=== PATIENT | female | born 1945 | race Caucasian/White ===

== ENCOUNTER 2017-09-12 20:43 | Emergency (ER) | payer MEDICARE, OTHER ==
[2017-09-12 21:03] VITALS: BP 133/85; PULSE 89; TEMP 97.8; BMI 28.5
[2017-09-12] MEDS ORDERED: CYCLOBENZAPRINE HCL 10 MG TABLET (FP) ONE (21:27)
[2017-09-12] MEDS ORDERED: MORPHINE SULFATE 10 MG/1 ML *VIAL ONE (21:27)
--- NOTE | 2017-09-12 21:27 | PDOC ---
History of Present Illness - General History Source: Patient Exam Limitations: No Limitations - History of Present Illness Initial Comments: 09/12/17 21:38 The patient is a 71 year old female with past medical history of hypertension, diabetes, gastritis, sciatica who presents to the ED with complaints of right lower back pain that began today. She states it radiates down her right buttock and right lower extremity. The patient states that her symptom is chronic and consistent with her sciatica for which she states only morphine can alleviate. She denies any history of injury or falls. The patient denies any numbness/ tingling to the area. She denies any recent illness, fever, or chills. The patient was seen here on 09/07/17 for epigastric pain for which she was given a CT scan which did not show anything. Allergies: acetaminophen, cortisone, penicillin V, tramadol Surgeries: Cholecystectomy, appendectomy <Yesica Butler - Last Filed: 09/12/17 21:38> <Candelaria Collins - Last Filed: 09/12/17 22:39> - General Chief Complaint: Back Pain Stated Complaint: BACK PAIN Time Seen by Provider: 09/12/17 21:00 Past History <Yesica Butler - Last Filed: 09/12/17 21:38> - Past Medical History Anemia: No Asthma: No Cancer: No Cardiac Disorders: No COPD: No CHF: No Diabetes: Yes GI Disorders: Yes (gastritis,colitis) Disorders: No HTN: Yes Hypercholesterolemia: Yes Liver Disease: No Thyroid Disease: No - Surgical History Abdominal Surgery: No Appendectomy: Yes Cardiac Surgery: No Cholecystectomy: Yes Lung Surgery: No Neurologic Surgery: No - Immunization History Immunization Up to Date: No - Suicide/Smoking/Psychosocial Hx Smoking History: Never smoked Have you smoked in the past 12 months: No Information on smoking cessation initiated: No Hx Alcohol Use: No Drug/Substance Use Hx: No Substance Use Type: None <Candelaria Collins - Last Filed: 09/12/17 22:39> - Past Medical History Allergies/Adverse Reactions: Allergies Allergy/AdvReac Type Severity Reaction Status Date / Time acetaminophen Allergy Verified 09/12/17 21:03 cortisone Allergy Verified 09/12/17 21:03 penicillin V Allergy Verified 09/12/17 21:03 tramadol Allergy Verified 09/12/17 21:03 Home Medications: Ambulatory Orders Lipase/Protease/Amylase [Mae Wall 36,000 Units Capsule] 1 each PO AC 10/15/15 Atorvastatin Ca [Lipitor] 20 mg PO HS 09/07/17 Insulin (Levemir) [Levemir Flexpen -] 20 - 27 units SQ ASDIR 09/07/17 Insulin Glargine,Hum.rec.anlog [Lantus] 50 unit SQ DAILY 09/07/17 Liraglutide [Victoza -] 1.2 mg SQ DAILY@0700 09/07/17 Metformin HCl [Glucophage] 1,000 mg PO BID 09/07/17 Omeprazole 40 mg PO DAILY 09/07/17 Pregabalin [Lyrica] 50 mg PO TID 09/07/17 Review of Systems - Review of Systems Able to Perform ROS?: Yes Comments:: 09/12/17 21:38 CONSTITUTIONAL: Absent: fever, no chills, no fatigue EYES: Absent: visual changes ENT: Absent: ear pain, no sore throat CARDIOVASCULAR: Absent: chest pain, no palpitations RESPIRATORY: Absent: cough, no SOB GI: Absent: abdominal pain, no nausea, no vomiting, no constipation, no diarrhea GENITOURINARY: Absent: dysuria, no frequency, no hematuria MUSKULOSKELETAL: Present: Right back pain, right buttock pain, right leg pain SKIN: Absent: rash NEURO: Absent: headache All Other Systems: Reviewed and Negative <Yesica Butler - Last Filed: 09/12/17 21:38> *Physical Exam - Vital Signs Last Vital Signs Temp Pulse Resp BP Pulse Ox 97.8 F 89 22 133/85 98 09/12/17 20:57 09/12/17 20:57 09/12/17 20:57 09/12/17 20:57 09/12/17 20:57 - Physical Exam Comments: 09/12/17 21:39 GENERAL: Well-appearing, well-nourished. No apparent distress. HEENT: Normocephalic, atraumatic. PERRL, EOM intact. CARDIOVASCULAR: Normal S1, S2. Regular rate and rhythm. PULMONARY: Clear to auscultation bilaterally. ABDOMEN: Soft, non-distended, non-tender. EXTREMITIES: Pain to palpation of left lower back and left buttock Normal ROM in all four extremities. No gross deformities. SKIN: Warm, dry. No rash NEUROLOGICAL: No focal neurological deficits. <Yesica Butler - Last Filed: 09/12/17 21:38> - Vital Signs Last Vital Signs Temp Pulse Resp BP Pulse Ox 97.8 F 89 22 133/85 98 09/12/17 20:57 09/12/17 20:57 09/12/17 20:57 09/12/17 20:57 09/12/17 20:57 <Candelaria Collins - Last Filed: 09/12/17 22:39> *DC/Admit/Observation/Transfer - Attestations Scribe Attestion: 09/12/17 21:41 Documentation prepared by Yesica Butler, acting as bilingual medical receptionist for Candelaria Collins MD. <Yesica Butler - Last Filed: 09/12/17 21:38> <Candelaria Collins - Last Filed: 09/12/17 22:39> Diagnosis at time of Disposition: Sciatica of right side - Discharge Dispostion Disposition: HOME Condition at time of disposition: Stable - Referrals Referrals: ON STAFF,NOT [Non Staff, Medical] - - Patient Instructions Printed Discharge Instructions: DI for Back Pain With Sciatica Additional Instructions: please followup with your regular doctor - Post Discharge Activity
[2017-09-12] MEDS ORDERED: morphine CARPU-JECT 2 MG/1 ML DISP.SYRIN IM STA (21:38)
[2017-09-12] MEDS ORDERED: CYCLOBENZAPRINE HCL 10 MG TABLET (FP) PO ONE (21:38)
== END 2017-09-12 22:54 | disposition home or self-care (01) ==
LOC: JER 20:43
PROC: 3E023NZ Introduction of Analgesics, Hypnotics, Sedatives into Muscle, Percutaneous Approach (ICD-10-PCS; principal; 2017-09-12)
DX: M54.31 Sciatica, right side (principal); I10 Essential (primary) hypertension; E11.9 Type 2 diabetes mellitus without complications; E78.00 Pure hypercholesterolemia, unspecified; Z79.84 Long term (current) use of oral hypoglycemic drugs; Z79.4 Long term (current) use of insulin; Z88.0 Allergy status to penicillin; Z88.8 Allergy status to other drugs, medicaments and biological substances
CPT/HCPCS: 99282-25

== ENCOUNTER 2017-12-17 08:29 | Emergency (ER) | payer OTHER ==
[2017-12-17 08:41] VITALS: BP 141/74; PULSE 50; TEMP 97.6; BMI 25.7
--- NOTE | 2017-12-17 09:03 | PDOC ---
History of Present Illness - General Chief Complaint: Itching Stated Complaint: RASH Time Seen by Provider: 12/17/17 08:49 History Source: Patient Exam Limitations: No Limitations - History of Present Illness Initial Comments: CHIEF COMPLAINT: 72 y/o afebrile female with PMH HTN, HLD, NIDDM c/o itching x 6 days. HISTORY OF PRESENT ILLNESS: Patient states she had her hair dyed 6 days ago and began to have overall body itching that day which has continued. She was seen at [facility] days ago and was prescribed benadryl which she is taking without relief. She denies cough, SOB, facial swelling, tongue swelling, rash and all other symptoms. Vital signs on arrival are notable for pulse of 50. REVIEW OF SYSTEMS: GENERAL/CONSTITUTIONAL: No fever/chills. HEAD, EYES, EARS, NOSE AND THROAT: No change in vision. No ear pain or discharge. No sore throat. CARDIOVASCULAR: No chest pain or shortness of breath. RESPIRATORY: No cough, wheezing, or hemoptysis. SKIN: +itching. No rash or easy bruising. NEUROLOGIC: No headache, vertigo, loss of consciousness, or loss of sensation. PHYSICAL EXAM: GENERAL: The patient is awake, alert, and fully oriented, in no acute distress. She is scratching herself all over. HEAD: Normal with no signs of trauma. ENT: Pupils equal, round and reactive to light, extraocular movements intact, sclera anicteric, conjunctiva clear. No angioedema. NO tongue swelling. Airway patent. LUNGS: Clear to auscultation bilaterally. Normal excursion. No respiratory distress or use of accessory muscles. CV: RRR, S1/S2, no MRG. Cap refill < 2 sec. NEUROLOGICAL: Normal speech, normal gait. CN II-XII grossly intact. SKIN: Warm, dry, normal turgor, no rashes or lesions noted. Past History - Past Medical History Allergies/Adverse Reactions: Allergies Allergy/AdvReac Type Severity Reaction Status Date / Time acetaminophen Allergy Verified 12/17/17 08:37 cortisone Allergy Verified 12/17/17 08:37 penicillin V Allergy Verified 12/17/17 08:37 tramadol Allergy Verified 12/17/17 08:37 Home Medications: Ambulatory Orders Lipase/Protease/Amylase [Mae Wall 36,000 Units Capsule] 1 each PO AC 10/15/15 Atorvastatin Ca [Lipitor] 20 mg PO HS 09/07/17 Liraglutide [Victoza -] 1.2 mg SQ DAILY@0700 09/07/17 Metformin HCl [Glucophage] 1,000 mg PO BID 09/07/17 Omeprazole 40 mg PO DAILY 09/07/17 Pregabalin [Lyrica] 50 mg PO TID 09/07/17 Prednisone [Deltasone] 40 mg PO DAILY #8 tablet 12/17/17 Anemia: No Asthma: No Cancer: No Cardiac Disorders: No COPD: No CHF: No Diabetes: Yes GI Disorders: Yes (gastritis,colitis) Disorders: No HTN: Yes Hypercholesterolemia: Yes Liver Disease: No Thyroid Disease: No - Surgical History Abdominal Surgery: No Appendectomy: Yes Cardiac Surgery: No Cholecystectomy: Yes Lung Surgery: No Neurologic Surgery: No - Immunization History Immunization Up to Date: No - Suicide/Smoking/Psychosocial Hx Smoking History: Never smoked Have you smoked in the past 12 months: No Hx Alcohol Use: No Drug/Substance Use Hx: No Substance Use Type: None *Physical Exam - Vital Signs Last Vital Signs Temp Pulse Resp BP Pulse Ox 97.6 F 50 L 19 141/74 97 12/17/17 08:38 12/17/17 08:38 12/17/17 08:38 12/17/17 08:38 12/17/17 08:38 Medical Decision Making - Medical Decision Making A/P: 72 y/o female with overall body itching after having hair dyed 6 days ago. Benadryl has provided no relief. Will send rx for 4 day course of prednisone. Instructed her to monitor her sugar levels as prednisone can cause sugar to increase. Patient has confirmed that she does not take insulin. Patient instructed to f/u with Dr. Dennis this week if itching does not resolve with prednisone. Was given IM injection of benadryl in the ER. Pt instructed to return to the ER with any worsening or concerning symptoms. The patient verbalizes understanding of all instructions, has no further questions and is awaiting discharge. *DC/Admit/Observation/Transfer Diagnosis at time of Disposition: Itching - Discharge Dispostion Disposition: HOME Condition at time of disposition: Good - Referrals Referrals: Yasmany Dennis [Primary Care Provider] - - Patient Instructions Printed Discharge Instructions: DI for Itching Additional Instructions: Discharge Instructions: -Continue to take benadryl for itching -A prescription has been sent to your pharmacy for prednisone -The prednisone may cause your sugar level to increase -Follow up with Dr. Dennis this week if no improvement with prednisone -Return to the ER with any worsening or concerning symptoms. Instrucciones de descarga: -Contine tomando benadryl para picar -Luz receta perez sido enviada a wesley farmacia para prednisona -La prednisona puede hacer que wesley nivel de azcar aumente -Siga con el Dr. Dennis esta semana si no mejora con prednisona -Volver a la simon de emergencias con cualquier empeoramiento o sntomas. Print Language: DANISH - Post Discharge Activity
== END 2017-12-17 09:52 | disposition home or self-care (01) ==
LOC: JERFT 08:29
PROC: 3E023GC Introduction of Other Therapeutic Substance into Muscle, Percutaneous Approach (ICD-10-PCS; principal; 2017-12-17)
DX: L29.8 Other pruritus (principal); I10 Essential (primary) hypertension; E78.00 Pure hypercholesterolemia, unspecified; E11.9 Type 2 diabetes mellitus without complications; Z79.84 Long term (current) use of oral hypoglycemic drugs
CPT/HCPCS: 96372; 99281-25

== ENCOUNTER 2018-03-11 19:00 | Emergency (ER) | payer OTHER ==
[2018-03-11 19:28] VITALS: TEMP 99.4; BMI 29.7
--- NOTE | 2018-03-11 20:00 | PDOC ---
History of Present Illness - General Chief Complaint: Pain Stated Complaint: RIGHT SIDE HIP PAIN History Source: Patient, Family Exam Limitations: No Limitations - History of Present Illness Initial Comments: 03/11/18 19:55 Patient is a 72 year old female with h/o arthritis, osteoporosis, DM, HLD, colitis,, bilateral knee surgery, complaining of right buttock pain that radiates down the leg 3 months. He has been to her PMD who prescribed naproxen and physical therapy. Physical therapy was completed one month ago but her pain continues. Yesterday she went to [facility] for the same pain which is now sharp, stabbing, 10/10, which was worse with ambulation, and was given morphine which relieved the pain for several hours. This morning the pain returned and worsened progressively throughout the day. She has been taking Tylenol last dose was 2 PM today with no relief of symptoms. States she stopped taking the naproxen because of her stoma problems. No bowel or bladder incontinence, no saddle anesthesia. PMD: Dr. Farr GENERAL/CONSTITUTIONAL: [No fever or chills. No weakness. No weight change.] HEAD, EYES, EARS, NOSE AND THROAT: [No change in vision. No ear pain or discharge. No sore throat.] CARDIOVASCULAR: [No chest pain or shortness of breath.] RESPIRATORY: [No cough, wheezing, or hemoptysis.] GASTROINTESTINAL: [No nausea, vomiting, diarrhea or constipation. No rectal bleeding.] GENITOURINARY: [No dysuria, frequency, or change in urination.] MUSCULOSKELETAL: [No joint or muscle swelling or pain. No neck (+) back pain.] SKIN AND BREASTS: [No rash or easy bruising.] NEUROLOGIC: [No headache, vertigo, loss of consciousness, or loss of sensation.] PSYCHIATRIC: [No depression or anxiety.] ENDOCRINE: [No increased thirst. No abnormal weight change.] HEMATOLOGIC/LYMPHATIC: [No anemia, easy bleeding, or history of blood clots.] ALLERGIC/IMMUNOLOGIC: [No hives or skin allergy. No latex allergy.] GENERAL: [The patient is awake, alert, and fully oriented, in no acute distress. ] HEAD: [Normal with no signs of trauma.] EYES: [Pupils equal, round and reactive to light, extraocular movements intact, sclera anicteric, conjunctiva clear.] ENT: [Ears normal, nares patent, oropharynx clear without exudates. Moist mucous membranes.] NECK: [Normal range of motion, supple without lymphadenopathy, JVD, or masses.] LUNGS: [Breath sounds equal, clear to auscultation bilaterally. No wheezes, and no crackles.] HEART: [Regular rate and rhythm, normal S1 and S2 without murmur, rub.] ABDOMEN: [Soft, nontender, normoactive bowel sounds. No guarding, no rebound. No masses.] EXTREMITIES: [Decreased range of motion due to pain, no edema. No clubbing or cyanosis. No cords, erythema, (+) tenderness right buttocks.] NEUROLOGICAL: [Cranial nerves II through XII grossly intact. Normal speech, normal gait.] PSYCH: [Normal mood, normal affect.] SKIN: [Warm, Dry, normal turgor, no rashes or lesions noted.] Past History - Past Medical History Allergies/Adverse Reactions: Allergies Allergy/AdvReac Type Severity Reaction Status Date / Time cortisone Allergy Verified 03/11/18 19:24 penicillin V Allergy Verified 03/11/18 19:24 tramadol Allergy Verified 03/11/18 19:24 Home Medications: Ambulatory Orders Lipase/Protease/Amylase [Creon Dr 36,000 Units Capsule] 1 each PO AC 10/15/15 Atorvastatin Ca [Lipitor] 20 mg PO HS 09/07/17 Metformin HCl [Glucophage] 1,000 mg PO BID 09/07/17 Omeprazole 40 mg PO DAILY 09/07/17 Aspirin [ASA -] 81 mg PO DAILY 03/11/18 Cyclobenzaprine HCl [Flexeril 10 mg] 10 mg PO BID PRN #20 tablet 03/12/18 Oxycodone HCl/Acetaminophen [Percocet 5/325 -] 1 tab PO Q4H #20 tablet MDD 6 09/24 Anemia: No Asthma: No Cancer: No Cardiac Disorders: No COPD: No CHF: No Diabetes: Yes GI Disorders: Yes (gastritis,colitis) Disorders: No HTN: Yes Hypercholesterolemia: Yes Liver Disease: No Thyroid Disease: No - Surgical History Abdominal Surgery: No Appendectomy: Yes Cardiac Surgery: No Cholecystectomy: Yes Lung Surgery: No Neurologic Surgery: No - Immunization History Immunization Up to Date: No - Suicide/Smoking/Psychosocial Hx Smoking History: Never smoked Have you smoked in the past 12 months: No Information on smoking cessation initiated: No Hx Alcohol Use: No Drug/Substance Use Hx: No Substance Use Type: None *Physical Exam - Vital Signs Last Vital Signs Temp Pulse Resp BP Pulse Ox 99.4 F 85 20 137/66 99 03/11/18 19:25 03/11/18 19:25 03/11/18 19:25 03/11/18 19:25 03/11/18 19:25 Medical Decision Making - Medical Decision Making 03/11/18 19:55 Patient is a 72 year old female with h/o arthritis, osteoporosis, DM, HLD, colitis,, bilateral knee surgery, complaining of right buttock pain that radiates down the leg 3 months consistent with sciatica. Will give morphine. Patient c/o pain given toradol 15mg IM still c/o pain given Percocet 1 tab po 03/12/18 01:05 Patient feels improved, ambulatory to the bathroom. I discussed the physical exam findings, ancillary test results and final diagnoses with the patient. I answered all of the patient's questions. The patient was satisfied with the care received and felt comfortable with the discharge plan and treatment plan. The Patient agrees to follow up with the primary care. *DC/Admit/Observation/Transfer Diagnosis at time of Disposition: Sciatica of right side - Discharge Dispostion Disposition: HOME Condition at time of disposition: Stable - Prescriptions Prescriptions: Cyclobenzaprine HCl [Flexeril 10 mg] 10 mg PO BID PRN #20 tablet PRN Reason: Back Pain Oxycodone HCl/Acetaminophen [Percocet 5/325 -] 1 tab PO Q4H #20 tablet MDD 6 - Referrals - Patient Instructions Printed Discharge Instructions: DI for Sciatica Additional Instructions: Your Discharge Instructions: You must call primary care physician within 24 hours to arrange follow-up. Return to the Emergency Department with any new, persistent or worsening symptoms, for fever, chills, SOB, dizziness or any other concerning changes that may occur. You must follow-up with pain management for further treatment. - Post Discharge Activity
[2018-03-11] MEDS ORDERED: CYCLOBENZAPRINE HCL 10 MG TABLET (FP) PO ONE (20:01)
[2018-03-11] MEDS ORDERED: morphine CARPU-JECT 2 MG/1 ML DISP.SYRIN IVPUSH ONE (20:01)
[2018-03-11] MEDS ORDERED: MORPHINE SULFATE 2 MG/ML VIAL ONE (20:18)
[2018-03-11] MEDS ORDERED: CYCLOBENZAPRINE HCL 10 MG TABLET (FP) ONE (20:18)
[2018-03-11] MEDS ORDERED: KETOROLAC TROMETHAMINE 15 MG/ML VIAL IVPUSH ONE (21:28)
[2018-03-11] MEDS ORDERED: KETOROLAC TROMETHAMINE 15 MG/ML VIAL ONE ×2 (21:31→22:07)
[2018-03-12 01:31] VITALS: BP 106/46; PULSE 70
== END 2018-03-12 01:56 | disposition home or self-care (01) ==
LOC: JER 19:00
PROC: 3E033NZ Introduction of Analgesics, Hypnotics, Sedatives into Peripheral Vein, Percutaneous Approach (ICD-10-PCS; principal; 2018-03-11)
PROC: 3E0333Z Introduction of Anti-inflammatory into Peripheral Vein, Percutaneous Approach (ICD-10-PCS; 2018-03-11)
DX: M54.31 Sciatica, right side (principal); M12.9 Arthropathy, unspecified; I10 Essential (primary) hypertension; E11.9 Type 2 diabetes mellitus without complications; Z79.84 Long term (current) use of oral hypoglycemic drugs; Q78.8 Other specified osteochondrodysplasias; Z87.19 Personal history of other diseases of the digestive system
CPT/HCPCS: 96374; 96375; 99283-25

== ENCOUNTER 2018-06-11 08:39 | Inpatient (IN) | payer MEDICARE, OTHER ==
[2018-06-11] MEDS ORDERED: SODIUM CHLORIDE 500 ML IV STA ×2 (09:00→10:53)
[2018-06-11] MEDS ORDERED: OXYMETAZOLINE 0.05% NASAL SOLUTION 15 ML BOTTLE NS ONE (09:04)
--- NOTE | 2018-06-11 09:04 | PDOC ---
History of Present Illness <Ge Lucio - Last Filed: 06/11/18 12:42> - General History Source: Patient - History of Present Illness Timing/Duration: other (this am) Associated Symptoms: denies: headaches, nausea/vomiting, weakness <Jerrica Martinez Last Filed: 06/11/18 12:56> - General Chief Complaint: Nasal Bleeding Stated Complaint: NOSE BLEED Time Seen by Provider: 06/11/18 08:47 Past History <Ge Lucio - Last Filed: 06/11/18 12:42> - Past Medical History Anemia: No Asthma: No Cancer: No Cardiac Disorders: No COPD: No CHF: No Diabetes: Yes GI Disorders: Yes (gastritis,colitis) Disorders: No HTN: Yes Hypercholesterolemia: Yes Liver Disease: No Thyroid Disease: No - Surgical History Abdominal Surgery: No Appendectomy: Yes Cardiac Surgery: No Cholecystectomy: Yes Lung Surgery: No Neurologic Surgery: No - Immunization History Immunization Up to Date: No - Suicide/Smoking/Psychosocial Hx Smoking History: Never smoked Have you smoked in the past 12 months: No Information on smoking cessation initiated: No Hx Alcohol Use: No Drug/Substance Use Hx: No Substance Use Type: None <Arturo MartinezIdania Filed: 06/11/18 12:56> - Past Medical History Allergies/Adverse Reactions: Allergies Allergy/AdvReac Type Severity Reaction Status Date / Time cortisone Allergy Verified 06/08/18 16:45 penicillin V Allergy Verified 06/08/18 16:45 tramadol Allergy Verified 06/08/18 16:45 Home Medications: Ambulatory Orders Metformin HCl [Glucophage] 1,000 mg PO BID 09/07/17 Omeprazole 40 mg PO DAILY 09/07/17 Aspirin [ASA -] 325 mg PO DAILY 06/08/18 hydrOXYzine PAMOATE [Vistaril -] 25 mg PO TID PRN #21 capsule 06/08/18 Review of Systems - Review of Systems Constitutional: No: Fever, Weakness HEENTM: Yes: Nose Congestion, Nose Bleeding Respiratory: No: Shortness of Breath Cardiac (ROS): No: Chest Pain Neurological: No: Headache, Dizziness <Jerrica Martinez Filed: 06/11/18 12:56> *Physical Exam - Vital Signs Last Vital Signs Temp Pulse Resp BP Pulse Ox 97.9 F 88 20 164/71 97 06/11/18 08:58 06/11/18 08:58 06/11/18 08:58 06/11/18 08:58 06/11/18 08:58 <Ge Lucio - Last Filed: 06/11/18 12:42> - Vital Signs Last Vital Signs Temp Pulse Resp BP Pulse Ox 97.9 F 88 20 164/71 97 06/11/18 08:58 06/11/18 08:58 06/11/18 08:58 06/11/18 08:58 06/11/18 08:58 - Physical Exam Comments: 06/11/18 09:05 Pt sitting up on stretcher w// profuse bleeding form L nares, also coughing up blood General Appearance: Yes: Severe Distress HEENT: positive: Normal Voice, Other (profuse bleeding from L nares, coughing up blood clots). negative: Scleral Icterus (R), Scleral Icterus (L) Neck: positive: Supple, Other Respiratory/Chest: positive: Lungs Clear, Normal Breath Sounds. negative: Respiratory Distress Cardiovascular: positive: Regular Rate, S1, S2 Gastrointestinal/Abdominal: positive: Soft. negative: Tender Integumentary: positive: Dry, Warm Neurologic: positive: Fully Oriented, Alert, Normal Mood/Affect <Jerrica Martinez - Last Filed: 06/11/18 12:56> Moderate Sedation - Procedure Monitoring Vital Signs: Procedure Monitoring Vital Signs Temperature 97.9 F 06/11/18 08:58 Pulse Rate 88 06/11/18 08:58 Respiratory Rate 20 06/11/18 08:58 Blood Pressure 164/71 06/11/18 08:58 O2 Sat by Pulse Oximetry (%) 97 06/11/18 08:58 <Ge Lucio - Last Filed: 06/11/18 12:42> - Procedure Monitoring Vital Signs: Procedure Monitoring Vital Signs Temperature 97.9 F 06/11/18 08:58 Pulse Rate 88 06/11/18 08:58 Respiratory Rate 20 06/11/18 08:58 Blood Pressure 164/71 06/11/18 08:58 O2 Sat by Pulse Oximetry (%) 97 06/11/18 08:58 <Jerrica Martinez - Last Filed: 06/11/18 12:56> ED Treatment Course - LABORATORY CBC & Chemistry Diagram: 06/11/18 09:15 06/11/18 09:15 - ADDITIONAL ORDERS Additional order review: Laboratory Results 06/11/18 06/11/18 06/11/18 09:15 09:15 09:15 PT with INR 12.40 INR 1.05 Sodium 132 L Potassium 4.8 Chloride 96 L Carbon Dioxide 29 Anion Gap 8 BUN 21 H Creatinine 0.8 Creat Clearance w eGFR > 60 Random Glucose 230 H Calcium 8.5 Total Bilirubin 0.4 AST 32 ALT 38 Alkaline Phosphatase 122 H Total Protein 6.9 Albumin 3.5 Blood Type O POSITIVE Antibody Screen Negative 06/11/18 09:15 RBC 3.18 L MCV 86.6 MCHC 32.2 RDW 15.0 MPV 6.4 L D Neutrophils % 55.6 Lymphocytes % 27.7 Monocytes % 6.1 Eosinophils % 10.1 H D Basophils % 0.5 - Medications Given in the ED: ED Medications Discontinued Medications Generic Name Dose Route Start Last Admin Trade Name Freq PRN Reason Stop Dose Admin Sodium Chloride 500 mls @ 500 mls/hr 06/11/18 09:00 06/11/18 09:18 Normal Saline - IV 06/11/18 09:59 500 mls/hr ASDIR STA Administration Sodium Chloride 500 mls @ 500 mls/hr 06/11/18 10:53 06/11/18 11:15 Normal Saline - IV 06/11/18 11:52 500 mls/hr ASDIR STA Administration Lorazepam 1 mg 06/11/18 10:08 06/11/18 10:18 Ativan - PO 06/11/18 10:09 Not Given ONCE ONE Lorazepam 1 mg 06/11/18 10:14 06/11/18 10:18 Ativan Injection - IVPUSH 06/11/18 10:15 1 mg ONCE ONE Administration Oxymetazoline HCl 1 spray 06/11/18 09:04 06/11/18 09:56 Afrin - NS 06/11/18 09:05 1 spr ONCE ONE Administration <Ge Lucio - Last Filed: 06/11/18 12:42> - LABORATORY CBC & Chemistry Diagram: 06/11/18 09:15 06/11/18 09:15 <Jerrica Martinez - Last Filed: 06/11/18 12:56> Medical Decision Making - Medical Decision Making 06/11/18 12:42 I independently examined and evaluated this patient in conjunction with DENISE practitioner. I reviewed the case and agree with the mid-level practitioner's assessment, diagnosis and disposition. <Ge Lucio - Last Filed: 06/11/18 12:42> - Medical Decision Making 06/11/18 09:02 72-year-old female, history of HLD, HTN, not on meds, diabetes, colitis, gastritis, osteoporosis, arthritis, s/p L knee surgery at [facility] over a month ago and states her asa dose was increased from 81mg to 324mg, currently on vistaril for recent dx of allergic rash, p/w epistaxis. Pt states she awoke w / significant L nares epistaxis this am that is not improving w/ nasal pressure. Also coughing up blood per pt. Had URI recently. No nasal trauma. No headache, dizziness or weakness. Denies prior history of epistaxis. See exam L nasal epistaxis this am, possible 2/2 recent URI, on 324mg asa at home H/o HTN, not on meds No prior h/o bleed Initial exam shows a very distress elderly female w/ BP of 164/71 w/ profuse L nares epistaxis w/ blood visualized to oropharynx -will attempt to control epistaxis w/ nasal compression/afrin -IVF -labs -reassess 06/11/18 10:27 After multiple attempts of nasal compressions w/ application of afrin, pt continues to bleed significantly and now has bloody tears, m/l 2/2 retrograde blood through lacrimal sac. Hgb 8.9, was 12, 09/24. Dose of Ativan given due to significant anxiety. Will place a rhinorocket at this time and admit for further observation as discussed with Dr Lucio 06/11/18 10:44 Rhinorocket placed to L nares but pt continues to bleed around packing and continues to cough up blood. Concern is now for possible posterior epistaxis. Consult placed to Dr Jha of ENT who states to leave packing in place and will be here in ~1/2hr to evaluate pt. Dr Jacobo made aware and pt admitted to [facility] 06/11/18 12:[address] Vallejo of ENT who states she currently has no bleeding around packing. On his examination, pt did have 1 large blood clot to posterior aspect of right nares but no active bleed. At this time. Carmina, recommending leaving packing in place. States if re-bleeding occurs can place a posterior packing. Does not recommend abx at this time per MD. Pt currently admitted to Dr. Jacobo's service. Repeat vitals improved <Jerrica Martinez - Last Filed: 06/11/18 12:56> *DC/Admit/Observation/Transfer <Ge Lucio - Last Filed: 06/11/18 12:42> - Discharge Dispostion Decision to Admit order: Yes <Jerrica Martinez - Last Filed: 06/11/18 12:56> Diagnosis at time of Disposition: Epistaxis - Discharge Dispostion Condition at time of disposition: Fair
[2018-06-11 09:05] VITALS: BMI 28.0
[2018-06-11 09:23] LABS: BASO % 0.5 % (0-2.0); EOS % 10.1 % (0-4.5); HEMATOCRIT 27.6 % (32.4-45.2); HEMOGLOBIN 8.9 GM/dL (10.7-15.3); LYMPH % 27.7 % (8-40); MCH 27.9 pg (25.7-33.7); MCHC 32.2 g/dl (32.0-36.0); MEAN CELL VOLUME 86.6 fl (80-96); MEAN PLT VOLUME 6.4 fl (7.5-11.1); MONO % 6.1 % (3.8-10.2); NEUT % 55.6 % (42.8-82.8); PLATELET COUNT 686 K/MM3 (134-434); RBC 3.18 M/mm3 (3.60-5.2); WHITE BLOOD COUNT 9.4 K/mm3 (4.0-10.0)
[2018-06-11 09:34] LABS: INR 1.05 (0.83-1.09); PROTHROMBIN TIME (PATIENT) 12.4 SEC (9.7-13.0)
[2018-06-11 09:44] LABS: ALBUMIN 3.5 g/dl (3.4-5.0); ALK PHOS 122 U/L (45-117); ANION GAP 8 MMOL/L (8-16); BILIRUBIN,TOTAL 0.4 mg/dL (0.2-1); BLOOD UREA NITROGEN 21 mg/dL (7-18); CALCIUM 8.5 mg/dL (8.5-10.1); CHLORIDE 96 mmol/L (98-107); CO2 29 mmol/L (21-32); CREATININE 0.8 mg/dL (0.55-1.3); GLUCOSE,RANDOM 230 mg/dL (74-106); POTASSIUM 4.8 mmol/L (3.5-5.1); SGOT/AST 32 U/L (15-37); SGPT/ALT 38 U/L (13-61); SODIUM 132 mmol/L (136-145); TOT PROT 6.9 g/dl (6.4-8.2)
[2018-06-11] MEDS ORDERED: LORazepam 1 MG TABLET PO ONE (10:08)
[2018-06-11] MEDS ORDERED: LORazepam 2 MG/ML SDV VIAL ONE (10:13)
--- NOTE | 2018-06-11 12:06 | CON.ENT ---
Consult Consult Specialty:: ENT Referred by:: Dr Lucio Reason for Consultation:: Nosebleed - History of Present Illness Chief Complaint: Left sided nosebleed History of Present Illness: 72 yo female on daily ASA woke up today with a persistent left sided nosebleed. 7.5cm rapid rhino packing placed with current control. She had been spitting up clots and had oozing around pack initially. No past ENT issues or concerns - History Source History Provided By: Family Member Limitations to Obtaining History: Language Barrier - Past Medical History Cardio/Vascular: Yes: HTN, Hyperlipdemia Gastrointestinal: Yes: Gastritis - Past Surgical History Past Surgical History: Yes: Appendectomy - Alcohol/Substance Use Hx Alcohol Use: No - Smoking History Smoking history: Never smoked Have you smoked in the past 12 months: No Home Medications - Allergies Allergies/Adverse Reactions: Allergies Allergy/AdvReac Type Severity Reaction Status Date / Time cortisone Allergy Verified 06/08/18 16:45 penicillin V Allergy Verified 06/08/18 16:45 tramadol Allergy Verified 06/08/18 16:45 - Home Medications Home Medications: Ambulatory Orders Metformin HCl [Glucophage] 1,000 mg PO BID 09/07/17 Omeprazole 40 mg PO DAILY 09/07/17 Aspirin [ASA -] 325 mg PO DAILY 06/08/18 hydrOXYzine PAMOATE [Vistaril -] 25 mg PO TID PRN #21 capsule 06/08/18 Review of Systems - Review of Systems HENT: reports: Ear Pain, Epistaxis Physical Exam-ENT Vital Signs: Vital Signs Temperature 97.9 F 06/11/18 08:58 Pulse Rate 88 06/11/18 08:58 Respiratory Rate 20 06/11/18 08:58 Blood Pressure 164/71 06/11/18 08:58 O2 Sat by Pulse Oximetry (%) 97 06/11/18 08:58 Constitutional: Yes: No Distress, Anxious Face: Yes: Symmetrical Eyes: Yes: PERRL Nose: Yes: Septum Deviated (left packing in place, no significant bleeding around pack), Other Nasal Passage: Yes: Pale Oral/Pharynx: Yes: Other (old clot from [employer]) Ear Canal: Yes: WNL Tympanic Membrane: Yes: Other (hemotympanum) Neck: Yes: WNL Respiratory: Yes: Regular Extremities: Yes: Other (s/p knee surgery) Problem List - Problems (1) Epistaxis Assessment/Plan: Left sided nosebleed- controlled with 7.5cm rapid rhino packing. No active bleeding seen posteriorly. Would continue pack as is for now. If bleeding returns can switch to longer anterior/posterior pack. Would keep packing in for 3 days. Can follow-up as an outpatient for removal on . Code(s): R04.0 - EPISTAXIS Procedure Note Procedure: Nasal Endoscopy After obtaining verbal consent, right nares sprayed with topical decongestant/ anesthetic. Flexible scope passed without difficulty. No right sided lesions, polyps, infection or active bleeding noted. Old clot on left side of nasopharynx. No active bleeding seen.
[2018-06-11] MEDS ORDERED: ACETAMINOPHEN 1000 MG/100 ML VIAL (NON FORMULARY) IVPB ONE (12:16)
[2018-06-11] MEDS ORDERED: ACETAMINOPHEN INJECTION 100 ML IVPB ONE (13:11)
--- NOTE | 2018-06-11 17:09 | EKG ---
Test Reason : Blood Pressure : / mmHG Vent. Rate : 091 BPM Atrial Rate : 091 BPM P-R Int : 172 ms QRS Dur : 078 ms QT Int : 346 ms P-R-T Axes : 044 -38 012 degrees QTc Int : 425 ms NORMAL SINUS RHYTHM LEFT AXIS DEVIATION ABNORMAL ECG WHEN COMPARED WITH ECG OF 07-SEP-2017 15:42, Confirmed by LALA EDEN MD ([id number]) on 06/11/2018 5:09:28 PM Referred By: Confirmed By:LALA EDEN MD
--- NOTE | 2018-06-11 17:17 | HP ---
Admitting History and Physical - Primary Care Physician PCP: Ana Jacobo - Admission Chief Complaint: EPISTAXIS History of Present Illness: PATIENT WITH ACUTE ONSET OF EPISTAXIS, H/O OF DM,HTN,LIPIDEMIA, OA, S/P LEFT KNE REPLACEMENT 3 WEEKS AGO History Source: Patient, Family Member, Medical Record - Past Medical History Cardiovascular: Yes: HTN, Hyperlipdemia Gastrointestinal: Yes: Gastritis ...: No - Past Surgical History Past Surgical History: Yes: Appendectomy - Smoking History Smoking history: Never smoked Have you smoked in the past 12 months: No - Alcohol/Substance Use Hx Alcohol Use: No Home Medications - Allergies Allergies/Adverse Reactions: Allergies Allergy/AdvReac Type Severity Reaction Status Date / Time codeine Allergy Verified 06/11/18 13:19 cortisone Allergy Verified 06/08/18 16:45 fentanyl Allergy Verified 06/11/18 13:19 hydrocodone Allergy Verified 06/11/18 13:19 morphine Allergy Verified 06/11/18 13:19 oxycodone Allergy Verified 06/11/18 13:19 penicillin V Allergy Verified 06/08/18 16:45 tramadol Allergy Verified 06/08/18 16:45 - Home Medications Home Medications: Ambulatory Orders Metformin HCl [Glucophage] 1,000 mg PO BID 09/07/17 Omeprazole 40 mg PO DAILY 09/07/17 Aspirin [ASA -] 325 mg PO DAILY 06/08/18 hydrOXYzine PAMOATE [Vistaril -] 25 mg PO TID PRN #21 capsule 06/08/18 Review of Systems - Review of Systems HENT: reports: Epistaxis, Nasal Congestion Neck: reports: No Symptoms Cardiovascular: reports: No Symptoms Respiratory: reports: No Symptoms Gastrointestinal: reports: No Symptoms Genitourinary: reports: No Symptoms Musculoskeletal: reports: Back Pain, Joint Pain Integumentary: reports: Wound Neurological: reports: No Symptoms Endocrine: reports: No Symptoms Physical Examination Vital Signs: Vital Signs Temperature 97.8 F 06/11/18 15:53 Pulse Rate 75 06/11/18 15:53 Respiratory Rate 16 06/11/18 15:53 Blood Pressure 150/80 06/11/18 15:53 O2 Sat by Pulse Oximetry (%) 100 06/11/18 15:13 Constitutional: Yes: Mild Distress Eyes: Yes: WNL HENT: Yes: Epistaxis, Nasal Congestion Neck: Yes: WNL Cardiovascular: Yes: WNL Respiratory: Yes: WNL Gastrointestinal: Yes: WNL Musculoskeletal: Yes: Joint Stiffness, Joint Swelling Extremities: Yes: Other Edema: Yes Peripheral Pulses WNL: Yes Integumentary: Yes: Other Wound/Incision: Yes: Open to air, Dressing Removed, Other (CLEAN LEFT KNEE SCAR , WITH NO SIGN OF INFECTION) Neurological: Yes: WNL ...Motor Strength: LLE Psychiatric: Yes: WNL Labs: CBC, BMP 06/11/18 09:15 06/11/18 09:15 Problem List - Problems (1) Anemia Code(s): D64.9 - ANEMIA, UNSPECIFIED (2) Epistaxis Code(s): R04.0 - EPISTAXIS (3) Diabetes Code(s): E11.9 - TYPE 2 DIABETES MELLITUS WITHOUT COMPLICATIONS Qualifiers: Diabetes mellitus type: type 2 Assessment/Plan ENT CONSULT NASAL PACKING DONE IN ED CHECK LABS PAIN CONTROL WITH TORADOL PT EVAL
[2018-06-11] MEDS ORDERED: hydrOXYzine HCL 25 MG TABLET (FP) PO PRN (17:20)
[2018-06-11] MEDS: KETOROLAC TROMETHAMINE 30 MG/1 ML VIAL IVPUSH SCH (18:01)
[2018-06-11] MEDS: ACETAMINOPHEN 325 MG TABLET (FP) PO PRN (20:35)
[2018-06-11] MEDS: BACITRACIN 15 GM TUBE TOPICAL OINTMENT TP SCH (22:08)
[2018-06-11] MEDS: INSULIN SLIDING SCALE (NOVOLOG) 1 VIAL SQ SCH (22:08)
[2018-06-12] MEDS: KETOROLAC TROMETHAMINE 30 MG/1 ML VIAL IVPUSH SCH ×3 (02:02→17:25)
[2018-06-12] MEDS: ACETAMINOPHEN 325 MG TABLET (FP) PO PRN ×3 (05:42→20:18)
[2018-06-12] MEDS: INSULIN SLIDING SCALE (NOVOLOG) 1 VIAL SQ SCH ×4 (06:29→21:49)
[2018-06-12] MEDS: metFORMIN HCL 500 MG TABLET (FP) PO SCH (06:29)
[2018-06-12 07:22] LABS: HEMATOCRIT 25.6 % (32.4-45.2); HEMOGLOBIN 8.4 GM/dL (10.7-15.3); MCH 28.1 pg (25.7-33.7); MCHC 32.7 g/dl (32.0-36.0); MEAN CELL VOLUME 85.9 fl (80-96); MEAN PLT VOLUME 6.5 fl (7.5-11.1); PLATELET COUNT 642 K/MM3 (134-434); RBC 2.98 M/mm3 (3.60-5.2); RDW 14.9 % (11.6-15.6); WHITE BLOOD COUNT 8.8 K/mm3 (4.0-10.0)
[2018-06-12 07:58] LABS: ALBUMIN 3.3 g/dl (3.4-5.0); ALK PHOS 95 U/L (45-117); ANION GAP 9 MMOL/L (8-16); BILIRUBIN,TOTAL 0.4 mg/dL (0.2-1); BLOOD UREA NITROGEN 22 mg/dL (7-18); CALCIUM 8.4 mg/dL (8.5-10.1); CHLORIDE 96 mmol/L (98-107); CO2 27 mmol/L (21-32); CREATININE 0.7 mg/dL (0.55-1.3); GLUCOSE,RANDOM 194 mg/dL (74-106); POTASSIUM 5.6 mmol/L (3.5-5.1); SGOT/AST 19 U/L (15-37); SGPT/ALT 29 U/L (13-61); SODIUM 131 mmol/L (136-145); TOT PROT 6.5 g/dl (6.4-8.2)
[2018-06-12] MEDS: PANTOPRAZOLE 40 MG TABLET (FP) PO SCH (09:54)
[2018-06-12] MEDS: BACITRACIN 15 GM TUBE TOPICAL OINTMENT TP SCH (09:56)
[2018-06-12] MEDS ORDERED: PT OWN MED DRAWER 7, Y5N ONE (09:56)
[2018-06-12] MEDS ORDERED: SODIUM POLYSTYRENE SULFONATE 15 GM/60 ML BOTTLE PO ONE (11:30)
--- NOTE | 2018-06-12 11:37 | PN ---
Progress Note, Physician Chief Complaint: Epistaxis Hyperkalemia History of Present Illness: NAD Seen by ENT for nasal packing Epistaxis stopped Hyperkalemic today - Current Medication List Current Medications: Active Medications Acetaminophen (Tylenol -) 650 mg PO Q6H PRN PRN Reason: FEVER Last Admin: 06/12/18 05:42 Dose: 650 mg Bacitracin (Bacitracin -) 1 applic TP DAILY [facility] Last Admin: 06/12/18 09:56 Dose: 1 appful Hydroxyzine HCl (Atarax -) 25 mg PO Q6H PRN PRN Reason: FOR ITCHING Insulin Aspart (Novolog Vial Sliding Scale -) 1 vial SQ ACHS [facility]; Protocol Last Admin: 06/12/18 06:29 Dose: 2 units Ketorolac Tromethamine (Toradol Injection -) 30 mg IVPUSH Q8H-IV [facility] Stop: 06/16/18 17:59 Last Admin: 06/12/18 09:45 Dose: 30 mg Metformin HCl (Glucophage -) 1,000 mg PO DAILY@0700 [facility] Last Admin: 06/12/18 06:29 Dose: 1,000 mg Pantoprazole Sodium (Protonix -) 40 mg PO DAILY [facility] Last Admin: 06/12/18 09:54 Dose: 40 mg Sodium Polystyrene Sulfonate (Kayexalate -) 30 gm PO ONCE ONE Stop: 06/12/18 11:31 - Objective Vital Signs: Vital Signs Temperature 97.5 F L 06/12/18 04:34 Pulse Rate 63 06/12/18 04:34 Respiratory Rate 20 06/12/18 09:00 Blood Pressure 152/51 L 06/12/18 04:34 O2 Sat by Pulse Oximetry (%) 94 L 06/12/18 09:00 Constitutional: Yes: Well Nourished, No Distress, Calm Cardiovascular: Yes: Regular Rate and Rhythm Respiratory: Yes: Regular Gastrointestinal: Yes: Normal Bowel Sounds, Soft Musculoskeletal: Yes: WNL Extremities: Yes: WNL Edema: No Peripheral Pulses WNL: Yes Neurological: Yes: Alert, Oriented Psychiatric: Yes: Alert, Oriented Labs: CBC, BMP 06/12/18 07:00 06/12/18 07:00 INR, PTT INR 1.05 (0.83-1.09) 06/11/18 09:15 Problem List - Problems (1) Hyperkalemia Assessment/Plan: -Nephrology -Kayexalate 30 gm once -CMP in AM, if normal, d/c home Code(s): E87.5 - HYPERKALEMIA (2) Epistaxis Assessment/Plan: -Seen by ENT -Nasal packing done -Epistaxis controlled Code(s): R04.0 - EPISTAXIS (3) Diabetes Assessment/Plan: -Check A1c -BGM AC HS -Diabetic/low sodium diet -BGM AC HS -Novolog sliding scale -RD consult Code(s): E11.9 - TYPE 2 DIABETES MELLITUS WITHOUT COMPLICATIONS Qualifiers: Diabetes mellitus type: type 2 (4) Anemia Assessment/Plan: -2/2 to blood loss -check b 12, Iron and thyroid profile -monitor trend Code(s): D64.9 - ANEMIA, UNSPECIFIED Assessment/Plan see problem list Hold any AC including aspirin upon discharge Will f/u with ENT upon discharge
--- NOTE | 2018-06-12 14:25 | CONSULT ---
Consult - text type - Consultation Consultation Note: Renal Consult for Hyperkalemia This is a 72 year old woman with history of Osteoarthritis s/p left knee replacement, DM who presented with nose bleed and developed hyperkalmeia during her hospital stay. Pt denies any history of CKD, kidney stones. Review of medical records show that her potassium was mildly elevated back in 2016. Pt nose bleed is now packed. Making urine, no sob, cp, abd pain. Continues to have pain in left knee. PMhx: as above Allergies: as listed in medical record Family Hx: NC Social Hx: No T/A/D ROS: as per HPI Home Medications Medication Instructions Recorded Metformin HCl [Glucophage] 1,000 mg PO BID 09/07/17 Omeprazole 40 mg PO DAILY 09/07/17 Aspirin [ASA -] 325 mg PO DAILY 06/08/18 hydrOXYzine PAMOATE [Vistaril -] 25 mg PO TID PRN #21 capsule 06/08/18 Vital Signs Temperature 97.5 F L 06/12/18 04:34 Pulse Rate 63 06/12/18 04:34 Respiratory Rate 20 06/12/18 09:00 Blood Pressure 152/51 L 06/12/18 04:34 O2 Sat by Pulse Oximetry (%) 94 L 06/12/18 09:00 Intake & Output 06/09/18 06/10/18 06/11/18 06/12/18 23:59 23:59 23:59 23:59 Intake Total 220 Balance 220 Weight 69.4 kg NAD Neck supple, no JVD MMM, left nostril nose packing RRR, no M/R CTA, no rales or wheeze mild swelling of left knee no LE edema CBC, BMP 06/12/18 07:00 06/12/18 07:00 Current Medications Acetaminophen (Tylenol -) 650 mg PO Q6H PRN PRN Reason: FEVER Last Admin: 06/12/18 05:42 Dose: 650 mg Bacitracin (Bacitracin -) 1 applic TP DAILY [facility] Last Admin: 06/12/18 09:56 Dose: 1 appful Hydroxyzine HCl (Atarax -) 25 mg PO Q6H PRN PRN Reason: FOR ITCHING Insulin Aspart (Novolog Vial Sliding Scale -) 1 vial SQ ACHS [facility]; Protocol Last Admin: 06/12/18 11:51 Dose: 4 units Ketorolac Tromethamine (Toradol Injection -) 30 mg IVPUSH Q8H-IV [facility] Stop: 06/16/18 17:59 Last Admin: 06/12/18 09:45 Dose: 30 mg Metformin HCl (Glucophage -) 1,000 mg PO DAILY@0700 [facility] Last Admin: 06/12/18 06:29 Dose: 1,000 mg Pantoprazole Sodium (Protonix -) 40 mg PO DAILY [facility] Last Admin: 06/12/18 09:54 Dose: 40 mg 72 year old woman with history of Osteoarthritis s/p left knee replacement, DM who presented with nose bleed and developed hyperkalmeia during her hospital stay. #Hyperkalemia likely due to NSAIDs (reduces aldosterone secretion) #Mild Hyponatremia (no neurological symptoms) #Epitaxis #Anemia #DM Type 2 #Hypertension Check TTKG to determine underlying cause of hyperkalemia s/p kayexalate this am, repeat K this evening change to low potassium diet may benefit to d/c nsaids but pt noted to have allergies to narcotic pain meds ( she reports nausea and emesis with opiods) can consider decreasing frequency if unable to completely stop No indication for for 3% saline with Na of 131 w/o neurological impairment, could be possible pt could have some degree of SIADH given pain Check urine studies would limit free water to 1.5L Daily Iron studies collected, results pending regarding anemia continue oral DM meds if BP remains persistently ? 150/90 would start oral antihypertnsive meds ( would not start BHANU/ARB given hyperkalemia) Thank you Garfield Alonso DO
[2018-06-12 21:35] LABS: ANION GAP 11 MMOL/L (8-16); BLOOD UREA NITROGEN 22 mg/dL (7-18); CALCIUM 8.4 mg/dL (8.5-10.1); CHLORIDE 94 mmol/L (98-107); CO2 26 mmol/L (21-32); CREATININE 0.9 mg/dL (0.55-1.3); GLUCOSE,RANDOM 153 mg/dL (74-106); POTASSIUM 4.4 mmol/L (3.5-5.1); SODIUM 131 mmol/L (136-145)
[2018-06-13] MEDS: KETOROLAC TROMETHAMINE 30 MG/1 ML VIAL IVPUSH SCH ×2 (02:00→09:56)
[2018-06-13] MEDS: ACETAMINOPHEN 325 MG TABLET (FP) PO PRN ×2 (04:17→18:30)
[2018-06-13] MEDS: metFORMIN HCL 500 MG TABLET (FP) PO SCH (06:19)
[2018-06-13] MEDS: INSULIN SLIDING SCALE (NOVOLOG) 1 VIAL SQ SCH ×4 (06:19→21:28)
[2018-06-13 07:51] LABS: ALBUMIN 3.4 g/dl (3.4-5.0); ALK PHOS 106 U/L (45-117); ANION GAP 7 MMOL/L (8-16); BILIRUBIN,TOTAL 0.4 mg/dL (0.2-1); BLOOD UREA NITROGEN 19 mg/dL (7-18); CALCIUM 8.5 mg/dL (8.5-10.1); CHLORIDE 93 mmol/L (98-107); CO2 28 mmol/L (21-32); CREATININE 0.8 mg/dL (0.55-1.3); GLUCOSE,RANDOM 186 mg/dL (74-106); SGOT/AST 19 U/L (15-37); SGPT/ALT 27 U/L (13-61); SODIUM 128 mmol/L (136-145); TOT PROT 6.4 g/dl (6.4-8.2)
[2018-06-13 08:07] LABS: SERUM IRON SATURATION 18 % (15-55); TOTAL IRON BINDING CAPACITY 335 ug/dL (250-450); UIBC 274 ug/dL (118-369)
[2018-06-13] MEDS: PANTOPRAZOLE 40 MG TABLET (FP) PO SCH (09:56)
[2018-06-13] MEDS: BACITRACIN 15 GM TUBE TOPICAL OINTMENT TP SCH (09:57)
--- NOTE | 2018-06-13 11:00 | PN ---
Progress Note (short form) - Note Progress Note: Renal follow up for Hyperkalemia and Hyponatremia Pt seen and examined at the bedside awake and alert no acute complaints daughter at the bedside drinking a lot of water Vital Signs Temperature 98.5 F 06/13/18 05:45 Pulse Rate 76 06/13/18 05:45 Respiratory Rate 20 06/13/18 05:45 Blood Pressure 155/69 06/13/18 05:45 O2 Sat by Pulse Oximetry (%) 94 L 06/12/18 21:00 Intake & Output 06/10/18 06/11/18 06/12/18 06/13/18 23:59 23:59 23:59 23:59 Intake Total 220 250 200 Balance 220 250 200 Weight 69.4 kg NAD awake and alert neck supple, no JVD RRR, no M/R CTA, no rales or wheeze soft NT/ND Left knee edema CBC, BMP 06/12/18 07:00 06/13/18 06:20 Current Medications Acetaminophen (Tylenol -) 650 mg PO Q6H PRN PRN Reason: FEVER Last Admin: 06/13/18 04:17 Dose: 650 mg Bacitracin (Bacitracin -) 1 applic TP DAILY [facility] Last Admin: 06/13/18 09:57 Dose: 1 appful Hydroxyzine HCl (Atarax -) 25 mg PO Q6H PRN PRN Reason: FOR ITCHING Insulin Aspart (Novolog Vial Sliding Scale -) 1 vial SQ ACHS [facility]; Protocol Last Admin: 06/13/18 06:19 Dose: 2 units Ketorolac Tromethamine (Toradol Injection -) 30 mg IVPUSH Q8H-IV [facility] Stop: 06/16/18 17:59 Last Admin: 06/13/18 09:56 Dose: 30 mg Metformin HCl (Glucophage -) 1,000 mg PO DAILY@0700 [facility] Last Admin: 06/13/18 06:19 Dose: 1,000 mg Pantoprazole Sodium (Protonix -) 40 mg PO DAILY [facility] Last Admin: 06/13/18 09:56 Dose: 40 mg 72 year old woman with history of Osteoarthritis s/p left knee replacement, DM who presented with nose bleed and developed hyperkalmeia during her hospital stay. #Hyperkalemia likely due to NSAIDs (reduces aldosterone secretion) #Mild Hyponatremia (no neurological symptoms) #Epitaxis #Anemia #DM Type 2 #Hypertension Serum potassium is improved will request shactor to educate about low potassium diet Serum Na downtrending but no acute indication for 3% saline start fluid restriction of 1L daily check urine studies for Na and Osm Pain control Thank you Garfield Alonso DO
[2018-06-13] MEDS: LISINOPRIL 10 MG TABLET (FP) PO SCH (14:00)
--- NOTE | 2018-06-13 14:35 | PN ---
Progress Note, Physician Chief Complaint: Epistaxis Hyperkalemia History of Present Illness: NAD Seen by ENT for nasal packing Epistaxis stopped Hyperkalemia improved today However, more hyponatremic today- apparently drinks almost 4 liters of water Seen by Nephrology - Current Medication List Current Medications: Active Medications Acetaminophen (Tylenol -) 650 mg PO Q6H PRN PRN Reason: FEVER Last Admin: 06/13/18 04:17 Dose: 650 mg Bacitracin (Bacitracin -) 1 applic TP DAILY [facility] Last Admin: 06/13/18 09:57 Dose: 1 appful Hydroxyzine HCl (Atarax -) 25 mg PO Q6H PRN PRN Reason: FOR ITCHING Insulin Aspart (Novolog Vial Sliding Scale -) 1 vial SQ ACHS [facility]; Protocol Last Admin: 06/13/18 06:19 Dose: 2 units Lisinopril (Prinivil) 10 mg PO DAILY [facility] Last Admin: 06/13/18 14:00 Dose: 10 mg Metformin HCl (Glucophage -) 1,000 mg PO DAILY@0700 [facility] Last Admin: 06/13/18 06:19 Dose: 1,000 mg Pantoprazole Sodium (Protonix -) 40 mg PO DAILY [facility] Last Admin: 06/13/18 09:56 Dose: 40 mg - Objective Vital Signs: Vital Signs Temperature 98.3 F 06/13/18 14:00 Pulse Rate 79 06/13/18 14:00 Respiratory Rate 18 06/13/18 14:00 Blood Pressure 151/80 06/13/18 14:00 O2 Sat by Pulse Oximetry (%) 94 L 06/12/18 21:00 Constitutional: Yes: Well Nourished, No Distress, Calm Cardiovascular: Yes: Regular Rate and Rhythm Respiratory: Yes: Regular Gastrointestinal: Yes: Normal Bowel Sounds, Soft Musculoskeletal: Yes: WNL Extremities: Yes: WNL Edema: No Peripheral Pulses WNL: Yes Neurological: Yes: Alert, Oriented Psychiatric: Yes: Alert, Oriented Labs: CBC, BMP 06/12/18 07:00 06/13/18 06:20 INR, PTT INR 1.05 (0.83-1.09) 06/11/18 09:15 Problem List - Problems (1) Hyperkalemia Assessment/Plan: -Improved -Nephrology on board -D/C Nsaids -Labs in AM Code(s): E87.5 - HYPERKALEMIA (2) Epistaxis Assessment/Plan: -Seen by ENT -Nasal packing done -Epistaxis controlled Code(s): R04.0 - EPISTAXIS (3) Diabetes Assessment/Plan: -A1c at 7.6 -BGM AC HS -Diabetic/low sodium diet -BGM AC HS -Novolog sliding scale -RD consult Code(s): E11.9 - TYPE 2 DIABETES MELLITUS WITHOUT COMPLICATIONS Qualifiers: Diabetes mellitus type: type 2 (4) Anemia Assessment/Plan: -2/2 to blood loss? -b 12, Iron and thyroid profile-unremarkable -monitor trend Code(s): D64.9 - ANEMIA, UNSPECIFIED (5) Hyponatremia Assessment/Plan: -Fluid restriction to 1L -labs in AM Code(s): E87.1 - HYPO-OSMOLALITY AND HYPONATREMIA (6) Knee pain, left Assessment/Plan: -s/p left knee surgery 05-28-[address] Cooper in [facility] -Allergic to Narcotics -Unable to tolerate NSAID's due to hyperkalemia -Trial of Lidoderm patch left knee -Continue tylenol PRN Code(s): M25.562 - PAIN IN LEFT KNEE Assessment/Plan See problem list Hold AC Seen by PT- walked 150 ft with walker
[2018-06-13] MEDS: LIDOCAINE 5% TOPICAL PATCH TP SCH (16:11)
[2018-06-13] MEDS ORDERED: LIDOCAINE PATCH REMOVAL MC SCH (22:00)
[2018-06-14] MEDS: ACETAMINOPHEN 325 MG TABLET (FP) PO PRN ×3 (02:00→16:30)
[2018-06-14] MEDS: metFORMIN HCL 500 MG TABLET (FP) PO SCH (06:50)
[2018-06-14] MEDS: INSULIN SLIDING SCALE (NOVOLOG) 1 VIAL SQ SCH ×3 (06:58→17:08)
[2018-06-14 08:16] LABS: ALBUMIN 3.6 g/dl (3.4-5.0); ALK PHOS 108 U/L (45-117); ANION GAP 8 MMOL/L (8-16); BILIRUBIN,TOTAL 0.6 mg/dL (0.2-1); BLOOD UREA NITROGEN 16 mg/dL (7-18); CALCIUM 8.9 mg/dL (8.5-10.1); CHLORIDE 95 mmol/L (98-107); CO2 28 mmol/L (21-32); CREATININE 0.7 mg/dL (0.55-1.3); GLUCOSE,RANDOM 189 mg/dL (74-106); POTASSIUM 4.9 mmol/L (3.5-5.1); SGOT/AST 18 U/L (15-37); SGPT/ALT 26 U/L (13-61); SODIUM 131 mmol/L (136-145); TOT PROT 6.8 g/dl (6.4-8.2)
[2018-06-14 09:01] LABS: BASO % 0.9 % (0-2.0); EOS % 8.9 % (0-4.5); HEMATOCRIT 25.8 % (32.4-45.2); HEMOGLOBIN 8.5 GM/dL (10.7-15.3); LYMPH % 22.3 % (8-40); MCH 28.7 pg (25.7-33.7); MCHC 32.8 g/dl (32.0-36.0); MEAN CELL VOLUME 87.4 fl (80-96); MEAN PLT VOLUME 6.6 fl (7.5-11.1); MONO % 5.1 % (3.8-10.2); NEUT % 62.8 % (42.8-82.8); PLATELET COUNT 656 K/MM3 (134-434); RBC 2.95 M/mm3 (3.60-5.2); RDW 15.3 % (11.6-15.6); WHITE BLOOD COUNT 8.2 K/mm3 (4.0-10.0)
[2018-06-14] MEDS: BACITRACIN 15 GM TUBE TOPICAL OINTMENT TP SCH (09:37)
[2018-06-14] MEDS: LIDOCAINE 5% TOPICAL PATCH TP SCH (09:37)
[2018-06-14] MEDS: PANTOPRAZOLE 40 MG TABLET (FP) PO SCH (09:38)
[2018-06-14] MEDS: LISINOPRIL 10 MG TABLET (FP) PO SCH (09:38)
--- NOTE | 2018-06-14 10:46 | DS ---
Physical Examination Vital Signs: Vital Signs Temperature 97.9 F 06/14/18 05:35 Pulse Rate 75 06/14/18 05:35 Respiratory Rate 20 06/14/18 05:35 Blood Pressure 141/60 06/14/18 05:35 O2 Sat by Pulse Oximetry (%) 96 06/13/18 21:00 Findings/Remarks: 72 yo female on daily ASA woke up today with a persistent left sided nosebleed. 7.5cm rapid rhino packing placed with current control. She had been spitting up clots and had oozing around pack initially. No past ENT issues or concerns Constitutional: Yes: Well Nourished, No Distress, Calm Cardiovascular: Yes: Regular Rate and Rhythm Respiratory: Yes: Regular Gastrointestinal: Yes: Normal Bowel Sounds, Soft Musculoskeletal: Yes: Muscle Weakness, Other (Left knee pain) Extremities: Yes: WNL Edema: No Peripheral Pulses WNL: Yes Wound/Incision: Yes: Clean/Dry Neurological: Yes: Alert, Oriented Psychiatric: Yes: Alert, Oriented Labs: CBC, BMP 06/14/18 07:00 06/14/18 07:00 Discharge Summary Reason For Visit: EPISTAXIS Current Active Problems Anemia (Acute) Epistaxis (Acute) Hyperkalemia (Acute) Hyponatremia (Acute) Knee pain, left (Acute) Hospital Course: Laboratory Last Values WBC 8.2 K/mm3 (4.0-10.0) 06/14/18 07:00 RBC 2.95 M/mm3 (3.60-5.2) L 06/14/18 07:00 Hgb 8.5 GM/dL (10.7-15.3) L 06/14/18 07:00 Hct 25.8 % (32.4-45.2) L 06/14/18 07:00 MCV 87.4 fl (80-96) 06/14/18 07:00 MCH 28.7 pg (25.7-33.7) 06/14/18 07:00 MCHC 32.8 g/dl (32.0-36.0) 06/14/18 07:00 RDW 15.3 % (11.6-15.6) 06/14/18 07:00 Plt Count 656 K/MM3 (134-434) H 06/14/18 07:00 MPV 6.6 fl (7.5-11.1) L 06/14/18 07:00 Absolute Neuts (auto) 5.2 K/mm3 (1.5-8.0) 06/14/18 07:00 Neutrophils % 62.8 % (42.8-82.8) 06/14/18 07:00 Lymphocytes % 22.3 % (8-40) 06/14/18 07:00 Monocytes % 5.1 % (3.8-10.2) 06/14/18 07:00 Eosinophils % 8.9 % (0-4.5) H 06/14/18 07:00 Basophils % 0.9 % (0-2.0) 06/14/18 07:00 Nucleated RBC % 0 % (0-0) 06/14/18 07:00 PT with INR 12.40 SEC (9.7-13.0) 06/11/18 09:15 INR 1.05 (0.83-1.09) 06/11/18 09:15 Sodium 131 mmol/L (136-145) L 06/14/18 07:00 Potassium 4.9 mmol/L (3.5-5.1) 06/14/18 07:00 Chloride 95 mmol/L (98-107) L 06/14/18 07:00 Carbon Dioxide 28 mmol/L (21-32) 06/14/18 07:00 Anion Gap 8 MMOL/L (8-16) 06/14/18 07:00 BUN 16 mg/dL (7-18) 06/14/18 07:00 Creatinine 0.7 mg/dL (0.55-1.3) 06/14/18 07:00 Creat Clearance w eGFR > 60 (>60) 06/14/18 07:00 POC Glucometer 218 UNITS (80-120) 06/14/18 05:57 Random Glucose 189 mg/dL (74-106) H 06/14/18 07:00 Hemoglobin A1c % 7.6 % (4.2-6.3) H 06/12/18 06:00 Serum Osmolality 284 mosm/kg (278-305) 06/12/18 15:00 Calcium 8.9 mg/dL (8.5-10.1) 06/14/18 07:00 Iron 61 ug/dL (27-139) 12/04/18 12:17 TIBC 335 ug/dL (250-450) 06/12/18 12:17 Iron Saturation 18 % (15-55) 06/12/18 12:17 Ferritin 175.5 ng/ml (8-388) 06/12/18 12:17 Total Bilirubin 0.6 mg/dL (0.2-1) 06/14/18 07:00 AST 18 U/L (15-37) 06/14/18 07:00 ALT 26 U/L (13-61) 06/14/18 07:00 Alkaline Phosphatase 108 U/L (45-117) 06/14/18 07:00 Total Protein 6.8 g/dl (6.4-8.2) 06/14/18 07:00 Albumin 3.6 g/dl (3.4-5.0) 06/14/18 07:00 Vitamin B12 593 pg/ml (193-986) 06/12/18 12:17 TSH 0.95 uIU/ml (0.358-3.74) 06/13/18 06:20 Free T4 0.99 ng/dl (0.76-1.46) 06/12/18 12:17 Cortisol AM Sample 4.4 ug/dL (.) 06/13/18 13:38 Blood Type O POSITIVE 06/11/18 18:40 Antibody Screen Negative 06/11/18 09:15 Microbiology 06/12/18 16:30 Stool Clostridium difficile Antigen ([facility]) - Final NEGATIVE 06/12/18 16:30 Stool Clostridium difficile Toxin Assay - Final Condition: Stable - Instructions Diet, Activity, Other Instructions: low sodium/low potassium/diabetic diet Follow up with PCP, nephrology and orthopedic surgery within next 2 weeks Also, Follow up with ENT within next 2 weeks. Started on Lisinopril 10 mg daily Continue metformin 1000 mg 2 x day Continue Hydroxyzine as needed D/C aspirin until cleared by ENT and orthopedic surgery Start Lidoderm patches-12 hours on, 12 hours off Disposition: VNS/HOME HEALTH CARE - Home Medications Comprehensive Discharge Medication List: Ambulatory Orders Metformin HCl [Glucophage] 1,000 mg PO BID 09/07/17 hydrOXYzine PAMOATE [Vistaril -] 25 mg PO TID PRN #21 capsule 06/08/18 Lidocaine 5% Patch [Lidoderm -] 1 patch TP DAILY #30 patch 06/14/18 Lisinopril [Prinivil] 10 mg PO DAILY #30 tablet 06/14/18 Pantoprazole Sodium [Protonix -] 40 mg PO DAILY #30 tablet.ec 06/14/18 hydrOXYzine HCL [Atarax -] 25 mg PO Q6H PRN tablet 06/14/18
[2018-06-14 13:35] VITALS: BP 147/80; PULSE 88; TEMP 97.8
--- NOTE | 2018-06-14 15:38 | PN ---
Progress Note (short form) - Note Progress Note: Renal follow up for Hyperkalemia and Hyponatremia Pt seen and examined at the bedside continues to have pain in left knee no sob, cp, abd pain no confusion, lethargy or weakness Vital Signs Temperature 98.5 F 06/13/18 05:45 Pulse Rate 76 06/13/18 05:45 Respiratory Rate 20 06/13/18 05:45 Blood Pressure 155/69 06/13/18 05:45 O2 Sat by Pulse Oximetry (%) 94 L 06/12/18 21:00 Intake & Output 06/10/18 06/11/18 06/12/18 06/13/18 23:59 23:59 23:59 23:59 Intake Total 220 250 200 Balance 220 250 200 Weight 69.4 kg NAD awake and alert neck supple, no JVD RRR, no M/R CTA, no rales or wheeze soft NT/ND Left knee edema Vital Signs Temperature 97.8 F 06/14/18 09:00 Pulse Rate 88 06/14/18 09:00 Respiratory Rate 18 06/14/18 09:00 Blood Pressure 147/80 06/14/18 09:00 O2 Sat by Pulse Oximetry (%) 90 L 06/14/18 09:00 Intake & Output 06/11/18 06/12/18 06/13/18 06/14/18 23:59 23:59 23:59 23:59 Intake Total 283 639 6170 600 Balance 521 964 5278 600 Weight 69.4 kg 72 year old woman with history of Osteoarthritis s/p left knee replacement, DM who presented with nose bleed and developed hyperkalmeia during her hospital stay. #Hyperkalemia likely due to NSAIDs (reduces aldosterone secretion) #Mild Hyponatremia (no neurological symptoms) #Epitaxis #Anemia #DM Type 2 #Hypertension Serum potassium is now improved and stable advised that pt use NSIADs with caution and that could increase serum K Serum Na stable, no neurological disturbances noted continue water restriction of 1L will need repeat labs and follow up within 1 week Thank you Garfield Alonso DO
[2018-06-14] MEDS ORDERED: INSULIN (NOVOLOG) ASPART 100 UNITS/ML 10ML VIAL ONE (16:59)
== END 2018-06-14 18:59 | disposition home health service (06) | DRG 812 ==
LOC: JER 08:39 → JERBED 10:51 → J6S 15:42
PROVIDERS: ADMIT Family Medicine; ATTEND Family Medicine
PROC: 09JK8ZZ Inspection of Nasal Mucosa and Soft Tissue, Via Natural or Artificial Opening Endoscopic (ICD-10-PCS; principal; 2018-06-11)
PROC: 2Y41X5Z Packing of Nasal Region using Packing Material (ICD-10-PCS; 2018-06-11)
DX: D64.9 Anemia, unspecified (principal); E87.1 Hypo-osmolality and hyponatremia; R04.0 Epistaxis; E11.9 Type 2 diabetes mellitus without complications; I10 Essential (primary) hypertension; E78.5 Hyperlipidemia, unspecified; E87.5 Hyperkalemia; M25.562 Pain in left knee
CPT/HCPCS: 36415; 71045-TC-FY; 80048; 80053; 82533; 82607; 82728; 82962; 83036; 83540; 83550; 83930; 84439; 84443; 85025; 85027; 85610; 86850; 86900; 86901; 87177; 87209; 87324; 87449; 93005; 93010; 96372; 97116-GP; 99281-25; 99283-25; J0131

== ENCOUNTER 2018-07-16 04:48 | Inpatient (IN) | payer MEDICARE, OTHER ==
--- NOTE | 2018-07-16 04:54 | PDOC ---
History of Present Illness - General Stated Complaint: NAUSEA Time Seen by Provider: 07/16/18 04:54 - History of Present Illness Initial Comments: 07/16/18 04:54 Ms. Pedersen is a 72 yo female w/ pmh of arthritis, osteoporosis, DM, HLD, colitis who presents for evaluation of a several week history of cough with nausea, vomiting, and elevated blood pressure. Patient reports she elected to present today as her home BP reading was over 200 systolic and that she also has headache. Patient reports she was previously evaluated at [facility] in mid June with no acute findings. The patient denies chest pain, shortness of breath, and dizziness. Denies fever , chills, diarrhea and constipation. Denies dysuria, frequency, urgency and hematuria. Past History - Past Medical History Allergies/Adverse Reactions: Allergies Allergy/AdvReac Type Severity Reaction Status Date / Time codeine Allergy Verified 06/11/18 13:19 cortisone Allergy Verified 06/08/18 16:45 fentanyl Allergy Verified 06/11/18 13:19 hydrocodone Allergy Verified 06/11/18 13:19 morphine Allergy Verified 06/11/18 13:19 oxycodone Allergy Verified 06/11/18 13:19 penicillin V Allergy Verified 06/08/18 16:45 tramadol Allergy Verified 06/08/18 16:45 Home Medications: Ambulatory Orders Metformin HCl [Glucophage] 1,000 mg PO BID 09/07/17 hydrOXYzine PAMOATE [Vistaril -] 25 mg PO TID PRN #21 capsule 06/08/18 Lidocaine 5% Patch [Lidoderm -] 1 patch TP DAILY #30 patch 06/14/18 Lisinopril [Prinivil] 10 mg PO DAILY #30 tablet 06/14/18 Pantoprazole Sodium [Protonix -] 40 mg PO DAILY #30 tablet.ec 06/14/18 hydrOXYzine HCL [Atarax -] 25 mg PO Q6H PRN tablet 06/14/18 Anemia: No Asthma: No Cancer: No Cardiac Disorders: No CVA: No COPD: No CHF: No Dementia: No Diabetes: Yes GI Disorders: Yes (gastritis,colitis) Disorders: No HTN: Yes Hypercholesterolemia: Yes Liver Disease: No Seizures: No Thyroid Disease: No - Surgical History Abdominal Surgery: No Appendectomy: Yes Cardiac Surgery: No Cholecystectomy: Yes Lung Surgery: No Neurologic Surgery: No Orthopedic Surgery: Yes (Knee) - Immunization History Immunization Up to Date: No - Suicide/Smoking/Psychosocial Hx Smoking History: Never smoked Have you smoked in the past 12 months: No Hx Alcohol Use: No Drug/Substance Use Hx: No Substance Use Type: None Review of Systems - Review of Systems Comments:: 07/16/18 05:16 GENERAL/CONSTITUTIONAL: No fever or chills. No weakness. HEAD, EYES, EARS, NOSE AND THROAT: No change in vision. No ear pain or discharge. No sore throat. CARDIOVASCULAR: No chest pain or shortness of breath RESPIRATORY: +Daily dry cough. No wheezing, or hemoptysis. GASTROINTESTINAL: +N/V as described. No diarrhea or constipation. GENITOURINARY: No dysuria, frequency, or change in urination. MUSCULOSKELETAL: No joint or muscle swelling or pain. No neck or back pain. SKIN: No rash NEUROLOGIC: +Headache as described. No vertigo, loss of consciousness, or change in strength/sensation. ENDOCRINE: No increased thirst. No abnormal weight change HEMATOLOGIC/LYMPHATIC: No anemia, easy bleeding, or history of blood clots. ALLERGIC/IMMUNOLOGIC: No hives or skin allergy. *Physical Exam - Physical Exam Comments: 07/16/18 05:17 GENERAL: Awake, alert, and fully oriented, in no acute distress HEAD: No signs of trauma, normocephalic, atraumatic EYES: PERRLA, EOMI, sclera anicteric, conjunctiva clear ENT: Auricles normal inspection, hearing grossly normal, nares patent, oropharynx clear without exudates. Moist mucosa NECK: Normal ROM, supple, no lymphadenopathy, JVD, or masses LUNGS: No distress, speaks full sentences, clear to auscultation bilaterally HEART: Regular rate and rhythm, normal S1 and S2, no murmurs, rubs or gallops, peripheral pulses normal and equal bilaterally. ABDOMEN: Soft, nontender, normoactive bowel sounds. No guarding, no rebound. No masses EXTREMITIES: Normal inspection, Normal range of motion, no edema. No clubbing or cyanosis. NEUROLOGICAL: Cranial nerves II through XII grossly intact. Normal speech, normal gait, no focal sensorimotor deficits SKIN: Warm, Dry, normal turgor, no rashes or lesions noted. ED Treatment Course - LABORATORY CBC & Chemistry Diagram: 07/16/18 04:55 07/16/18 05:00 Medical Decision Making - Medical Decision Making 07/16/18 06:11 Ms. Pedersen is a 72 yo female w/ pmh as described who presents for evaluation of nausea/vomiting/cough as described. Patient noted to have hyponatremia as below. Admitting patient for further evaluation of electrolyte abnormalities. Laboratory Results - last 24 hr 07/16/18 07/16/18 07/16/18 04:55 05:00 05:00 WBC 5.7 RBC 3.36 L Hgb 9.4 L Hct 27.3 L MCV 81.3 D MCH 28.1 MCHC 34.5 RDW 14.5 Plt Count 427 D MPV 7.4 L D Absolute Neuts (auto) 3.3 Neutrophils % 58.4 Lymphocytes % 27.5 D Monocytes % 8.2 Eosinophils % 4.9 H Basophils % 1.0 Nucleated RBC % 0 PT with INR INR PTT (Actin FS) Sodium 124 L Potassium 4.3 Chloride 90 L Carbon Dioxide 26 Anion Gap 8 BUN 8 Creatinine 0.7 Creat Clearance w eGFR > 60 Random Glucose 117 H Lactic Acid 1.1 Calcium 8.6 Total Bilirubin 0.4 AST 11 L ALT 16 Alkaline Phosphatase 107 Creatine Kinase 72 Troponin I < 0.02 Total Protein 7.2 Albumin 3.9 07/16/18 05:00 WBC RBC Hgb Hct MCV MCH MCHC RDW Plt Count MPV Absolute Neuts (auto) Neutrophils % Lymphocytes % Monocytes % Eosinophils % Basophils % Nucleated RBC % PT with INR 12.20 INR 1.03 PTT (Actin FS) 28.0 Sodium Potassium Chloride Carbon Dioxide Anion Gap BUN Creatinine Creat Clearance w eGFR Random Glucose Lactic Acid Calcium Total Bilirubin AST ALT Alkaline Phosphatase Creatine Kinase Troponin I Total Protein Albumin *DC/Admit/Observation/Transfer Diagnosis at time of Disposition: Hyponatremia Nausea & vomiting Qualifiers: Vomiting type: unspecified Vomiting Intractability: unspecified Qualified Code( s): R11.2 - Nausea with vomiting, unspecified - Discharge Dispostion Decision to Admit order: Yes - Referrals - Patient Instructions - Post Discharge Activity
[2018-07-16] MEDS ORDERED: ONDANSETRON 4 MG/2 ML VIAL IVPUSH ONE (04:55)
[2018-07-16] MEDS ORDERED: SODIUM CHLORIDE 1,000 ML IV STA (04:55)
--- NOTE | 2018-07-16 05:03 | PDOC ---
Attending Attestation - Resident Resident Name: Olaf Leslie - ED Attending Attestation I have performed the following: I have examined & evaluated the patient, The case was reviewed & discussed with the resident, I agree w/resident's findings & plan - HPI HPI: 07/16/18 05:03 Pt comes with cough and vomiting. SHe states that she has an intractable cough , as well as some nausea and vomiting. - Physicial Exam PE: 07/16/18 06:44 Agree with resident exam - Medical Decision Making 07/16/18 06:45 Pt has cough with vomiting. She has been unable to eat and now with hyponatremia ; she will require admission for eval and hydration and cardiac monitoring. 07/22/18 05:56 Pt signed out to the day team
[2018-07-16 05:04] VITALS: BMI 27.1
[2018-07-16] MEDS ORDERED: VALSARTAN 40 MG TABLET (FP) PO ONE (05:14)
[2018-07-16] MEDS ORDERED: ONDANSETRON 4 MG/2 ML VIAL ONE (05:15)
[2018-07-16 05:36] LABS: ALBUMIN 3.9 g/dl (3.4-5.0); ALK PHOS 107 U/L (45-117); ANION GAP 8 MMOL/L (8-16); BILIRUBIN,TOTAL 0.4 mg/dL (0.2-1); BLOOD UREA NITROGEN 8 mg/dL (7-18); CALCIUM 8.6 mg/dL (8.5-10.1); CHLORIDE 90 mmol/L (98-107); CO2 26 mmol/L (21-32); CREATININE 0.7 mg/dL (0.55-1.3); GLUCOSE,RANDOM 117 mg/dL (74-106); POTASSIUM 4.3 mmol/L (3.5-5.1); SGOT/AST 11 U/L (15-37); SGPT/ALT 16 U/L (13-61); SODIUM 124 mmol/L (136-145); TOT PROT 7.2 g/dl (6.4-8.2)
[2018-07-16 05:37] LABS: EOS % 4.9 % (0-4.5); HEMATOCRIT 27.3 % (32.4-45.2); HEMOGLOBIN 9.4 GM/dL (10.7-15.3); LYMPH % 27.5 % (8-40); MCH 28.1 pg (25.7-33.7); MCHC 34.5 g/dl (32.0-36.0); MEAN CELL VOLUME 81.3 fl (80-96); MEAN PLT VOLUME 7.4 fl (7.5-11.1); MONO % 8.2 % (3.8-10.2); NEUT % 58.4 % (42.8-82.8); PLATELET COUNT 427 K/MM3 (134-434); RBC 3.36 M/mm3 (3.60-5.2); RDW 14.5 % (11.6-15.6); WHITE BLOOD COUNT 5.7 K/mm3 (4.0-10.0)
[2018-07-16 05:38] LABS: INR 1.03 (0.83-1.09); PROTHROMBIN TIME (PATIENT) 12.2 SEC (9.7-13.0)
[2018-07-16 07:08] LABS: URINE APPEARANCE CLEAR; URINE BILIRUBIN NEGATIVE (<2.0 mg/dL); URINE COLOR COLORLESS; URINE GLUCOSE (UA) NEGATIVE (NEGATIVE); URINE KETONE NEGATIVE (NEGATIVE); URINE LEUK ESTERASE NEGATIVE (NEGATIVE); URINE NITRITE NEGATIVE (NEGATIVE); URINE PROTEIN NEGATIVE (NEGATIVE); URINE UROBILINOGEN NEGATIVE mg/dL (0.2-1.0)
--- NOTE | 2018-07-16 09:37 | EKG ---
Test Reason : Blood Pressure : / mmHG Vent. Rate : 075 BPM Atrial Rate : 075 BPM P-R Int : 202 ms QRS Dur : 084 ms QT Int : 384 ms P-R-T Axes : 052 -12 028 degrees QTc Int : 428 ms NORMAL SINUS RHYTHM NORMAL ECG WHEN COMPARED WITH ECG OF 11-JUN-2018 10:26, NO SIGNIFICANT CHANGE WAS FOUND Confirmed by LALA EDEN MD ([id number]) on 07/16/2018 9:36:28 AM Referred By: Confirmed By:LALA EDEN MD
[2018-07-16] MEDS ORDERED: ACETAMINOPHEN 325 MG TABLET (FP) PO PRN (13:48)
--- NOTE | 2018-07-16 14:43 | EKG ---
Test Reason : Blood Pressure : / mmHG Vent. Rate : 069 BPM Atrial Rate : 069 BPM P-R Int : 202 ms QRS Dur : 082 ms QT Int : 400 ms P-R-T Axes : 058 -15 023 degrees QTc Int : 428 ms NORMAL SINUS RHYTHM NORMAL ECG WHEN COMPARED WITH ECG OF 16-JUL-2018 05:08, NO SIGNIFICANT CHANGE WAS FOUND Confirmed by LALA EDEN MD ([id number]) on 07/16/2018 2:42:39 PM Referred By: Confirmed By:LALA EDEN MD
--- NOTE | 2018-07-16 16:08 | CON.CARD ---
Consult Consult Specialty:: Cardiology Referred by:: ER Reason for Consultation:: abnormal ECG 2:1 - History of Present Illness Chief Complaint: vomiting History of Present Illness: 72 yo female w/ pmh of arthritis, osteoporosis, DM, HLD, colitis who presents for evaluation of a several week history of cough with nausea, vomiting, and elevated blood pressure. Recently at [facility] for similar, including told of slow heart rate seen by Dr Bustamante on telemetry for 5 days. Told no need for further testing, given outpatient appointment. Noted on tele with brief 2:1 AV conduction with narrow QRS. No chest pain, sob, orthopnea, PND or edema. Exercise tolerance is limited by DJD, uses a cane. - History Source History Provided By: Patient, Medical Record Limitations to Obtaining History: No Limitations - Past Medical History Cardio/Vascular: Yes: HTN, Hyperlipdemia Gastrointestinal: Yes: Gastritis - Past Surgical History Past Surgical History: Yes: Appendectomy - Alcohol/Substance Use Hx Alcohol Use: No - Smoking History Smoking history: Never smoked Have you smoked in the past 12 months: No Home Medications - Allergies Allergies/Adverse Reactions: Allergies Allergy/AdvReac Type Severity Reaction Status Date / Time acetaminophen Allergy Verified 07/16/18 06:51 codeine Allergy Verified 07/16/18 06:51 cortisone Allergy Verified 07/16/18 06:51 fentanyl Allergy Verified 07/16/18 06:51 hydrocodone Allergy Verified 07/16/18 06:51 morphine Allergy Verified 07/16/18 06:51 oxycodone Allergy Verified 07/16/18 06:51 penicillin V Allergy Verified 07/16/18 06:51 tramadol Allergy Verified 07/16/18 06:51 - Home Medications Home Medications: Ambulatory Orders Metformin HCl [Glucophage] 1,000 mg PO BID 09/07/17 hydrOXYzine PAMOATE [Vistaril -] 25 mg PO TID PRN #21 capsule 06/08/18 Lidocaine 5% Patch [Lidoderm -] 1 patch TP DAILY #30 patch 06/14/18 Lisinopril [Prinivil] 10 mg PO DAILY #30 tablet 06/14/18 Pantoprazole Sodium [Protonix -] 40 mg PO DAILY #30 tablet.ec 06/14/18 hydrOXYzine HCL [Atarax -] 25 mg PO Q6H PRN tablet 06/14/18 Vital Signs: Vital Signs Temperature 98.8 F 07/16/18 06:53 Pulse Rate 50 L 07/16/18 06:53 Respiratory Rate 18 07/16/18 06:53 Blood Pressure 131/47 L 07/16/18 06:53 O2 Sat by Pulse Oximetry (%) 96 07/16/18 06:53 - Other Data Labs, Other Data: CBC, BMP 07/16/18 04:55 07/16/18 05:00 INR, PTT INR 1.03 (0.83-1.09) 07/16/18 05:00 Troponin, BNP 07/16/18 05:00 Troponin I < 0.02 Troponin, BNP 07/16/18 05:00 Troponin I < 0.02 Assessment/Plan 72 yo female w/ pmh of arthritis, osteoporosis, DM, HLD, colitis who presents for evaluation of a several week history of cough with nausea, vomiting, and elevated blood pressure. Recently at [facility] for similar, including told of slow heart rate seen by Dr Bustamante on telemetry for 5 days. Told no need for further testing, given outpatient appointment. Noted on tele with brief 2:1 AV conduction with narrow QRS. --2:1 AV conduction with narrow QRS is 95% or more likely to be benign wenchebach rather than Mobitz 2. --Continue telemetry for one day. --treat underlying cause and hyponatremia. --Get dc summary from [facility] --will ultimately need op fu with Dr Bustamante.
--- NOTE | 2018-07-16 16:14 | HP ---
Admitting History and Physical - Primary Care Physician PCP: Yasmany Dennis - Admission Chief Complaint: Nausea, Vomiting, Cough History of Present Illness: Patient is a 72 year old female with complaints of nausea, vomiting, and cough since discharge from [facility] recently. Patient complain of productive cough with clear phlegm. Patient states experiencing post-tussive vomiting and pleuritic pain with cough. On examination complain of headache with visual disturbances. In ED labs show Hyponatremia of 124. Patient to be admitted for Hyponatremia. History Source: Patient Limitations to Obtaining History: No Limitations - Past Medical History Cardiovascular: Yes: HTN, Hyperlipdemia Gastrointestinal: Yes: Gastritis - Past Surgical History Past Surgical History: Yes: Appendectomy Additional Past Surgical History: L and R TKR - Smoking History Smoking history: Never smoked Have you smoked in the past 12 months: No - Alcohol/Substance Use Hx Alcohol Use: No - Social History Usual Living Arrangement: Yes: Alone ADL: Support Services <Serena Pena - Last Filed: 07/16/18 16:08> Home Medications <Serena Pena - Last Filed: 07/16/18 16:08> <Ana Jacobo - Last Filed: 07/16/18 19:37> - Allergies Allergies/Adverse Reactions: Allergies Allergy/AdvReac Type Severity Reaction Status Date / Time acetaminophen Allergy Verified 07/16/18 06:51 codeine Allergy Verified 07/16/18 06:51 cortisone Allergy Verified 07/16/18 06:51 fentanyl Allergy Verified 07/16/18 06:51 hydrocodone Allergy Verified 07/16/18 06:51 morphine Allergy Verified 07/16/18 06:51 oxycodone Allergy Verified 07/16/18 06:51 penicillin V Allergy Verified 07/16/18 06:51 tramadol Allergy Verified 07/16/18 06:51 - Home Medications Home Medications: Ambulatory Orders Metformin HCl [Glucophage] 1,000 mg PO BID 09/07/17 hydrOXYzine PAMOATE [Vistaril -] 25 mg PO TID PRN #21 capsule 06/08/18 Lidocaine 5% Patch [Lidoderm -] 1 patch TP DAILY #30 patch 06/14/18 Lisinopril [Prinivil] 10 mg PO DAILY #30 tablet 06/14/18 Pantoprazole Sodium [Protonix -] 40 mg PO DAILY #30 tablet.ec 06/14/18 hydrOXYzine HCL [Atarax -] 25 mg PO Q6H PRN tablet 06/14/18 Review of Systems - Review of Systems Constitutional: reports: No Symptoms Eyes: reports: Double Vision HENT: reports: No Symptoms Neck: reports: No Symptoms Cardiovascular: reports: No Symptoms Respiratory: reports: Cough Gastrointestinal: reports: Nausea, Vomiting Genitourinary: reports: No Symptoms Breasts: reports: No Symptoms Reported Musculoskeletal: reports: Joint Pain, Joint Swelling Integumentary: reports: No Symptoms Neurological: reports: No Symptoms Endocrine: reports: No Symptoms Hematology/Lymphatic: reports: No Symptoms Psychiatric: reports: No Symptoms <Serena Pena - Last Filed: 07/16/18 16:08> Physical Examination Vital Signs: Vital Signs Temperature 98.8 F 07/16/18 06:53 Pulse Rate 50 L 07/16/18 06:53 Respiratory Rate 18 07/16/18 06:53 Blood Pressure 131/47 L 07/16/18 06:53 O2 Sat by Pulse Oximetry (%) 96 07/16/18 06:53 Constitutional: Yes: Well Nourished, Calm Eyes: Yes: Conjunctiva Clear HENT: Yes: Atraumatic Neck: Yes: Supple Cardiovascular: Yes: Regular Rate and Rhythm Respiratory: Yes: Regular, CTA Bilaterally Gastrointestinal: Yes: Normal Bowel Sounds, Soft Musculoskeletal: Yes: Joint Swelling (L knee, s/p TKR) Extremities: Yes: WNL Edema: No Integumentary: Yes: WNL Neurological: Yes: Alert, Oriented Psychiatric: Yes: Alert, Oriented Labs: CBC, JOHN 07/16/18 04:55 07/16/18 05:00 <Serena Pena - Last Filed: 07/16/18 16:08> Vital Signs: Vital Signs Temperature 98.8 F 07/16/18 06:53 Pulse Rate 72 07/16/18 18:47 Respiratory Rate 18 07/16/18 18:47 Blood Pressure 113/63 07/16/18 18:47 O2 Sat by Pulse Oximetry (%) 99 07/16/18 18:47 Labs: CBC, JOHN 07/16/18 04:55 07/16/18 05:00 <Ana Jacobo - Last Filed: 07/16/18 19:37> Imaging - Results Chest X-ray: Report Reviewed EKG: Report Reviewed <Serena Pena - Last Filed: 07/16/18 16:08> Problem List - Problems (1) HTN (hypertension) Code(s): I10 - ESSENTIAL (PRIMARY) HYPERTENSION (2) Hyponatremia Code(s): E87.1 - HYPO-OSMOLALITY AND HYPONATREMIA (3) Nausea & vomiting Code(s): R11.2 - NAUSEA WITH VOMITING, UNSPECIFIED Qualifiers: Vomiting type: unspecified Vomiting Intractability: unspecified Qualified Code(s): R11.2 - Nausea with vomiting, unspecified (4) Abdominal pain Code(s): R10.9 - UNSPECIFIED ABDOMINAL PAIN Qualifiers: Abdominal location: generalized Qualified Code(s): R10.84 - Generalized abdominal pain (5) Diabetes Code(s): E11.9 - TYPE 2 DIABETES MELLITUS WITHOUT COMPLICATIONS Qualifiers: Diabetes mellitus type: type 2 <Serena Pena - Last Filed: 07/16/18 16:08> Assessment/Plan -admit for tele monitoring -Start on NS at 75cc/hr -serum osmolality, urine osmolality, urine creatinine, urine electrolyte ordered -nephrology consult pending -neuro checks -will cont to trend Na level -cardiology consult -cont with lisinopril -BGM ACHS, cont metformin -dvt ppx -fall precaution -PT eval <Serena Pena - Last Filed: 07/16/18 16:08> i have seen and examined the above patient and i agree with the above note <Ana Jacobo - Last Filed: 07/16/18 19:37>
[2018-07-16] MEDS ORDERED: LISINOPRIL 10 MG TABLET (FP) PO ONE (16:21)
[2018-07-16] MEDS ORDERED: LISINOPRIL 5 MG TABLET (FP) ONE (17:56)
[2018-07-16] MEDS ORDERED: metFORMIN HCL 500 MG TABLET (FP) ONE (17:56)
[2018-07-16] MEDS ORDERED: LIDOCAINE 5% TOPICAL PATCH ONE (17:57)
[2018-07-16] MEDS: LIDOCAINE 5% TOPICAL PATCH TP SCH (18:35)
[2018-07-16] MEDS: SODIUM CHLORIDE 1,000 ML IV SCH (18:47)
[2018-07-16] MEDS: metFORMIN HCL 500 MG TABLET (FP) PO SCH (20:55)
[2018-07-16 23:58] LABS: OSMOLALITY,SERUM 263 mosm/kg (278-305)
[2018-07-17] MEDS: metFORMIN HCL 500 MG TABLET (FP) PO SCH ×2 (06:46→17:13)
[2018-07-17 07:00] LABS: HEMATOCRIT 31.2 % (32.4-45.2); HEMOGLOBIN 9.9 GM/dL (10.7-15.3); MCH 26.3 pg (25.7-33.7); MCHC 31.7 g/dl (32.0-36.0); MEAN CELL VOLUME 83.1 fl (80-96); MEAN PLT VOLUME 7.5 fl (7.5-11.1); PLATELET COUNT 390 K/MM3 (134-434); RBC 3.75 M/mm3 (3.60-5.2); RDW 14.3 % (11.6-15.6); WHITE BLOOD COUNT 5.9 K/mm3 (4.0-10.0)
[2018-07-17 07:25] LABS: ALK PHOS 114 U/L (45-117); ANION GAP 6 MMOL/L (8-16); BILIRUBIN,TOTAL 0.4 mg/dL (0.2-1); BLOOD UREA NITROGEN 11 mg/dL (7-18); CALCIUM 8.9 mg/dL (8.5-10.1); CHLORIDE 96 mmol/L (98-107); CO2 27 mmol/L (21-32); CREATININE 0.7 mg/dL (0.55-1.3); GLUCOSE,RANDOM 141 mg/dL (74-106); POTASSIUM 4.3 mmol/L (3.5-5.1); SGOT/AST 18 U/L (15-37); SGPT/ALT 19 U/L (13-61); SODIUM 129 mmol/L (136-145); TOT PROT 7.6 g/dl (6.4-8.2)
--- NOTE | 2018-07-17 09:51 | PN ---
Progress Note, Physician Chief Complaint: no further vomiting. tele negative for further events. History of Present Illness: 72 yo female w/ pmh of arthritis, osteoporosis, DM, HLD, colitis who presents for evaluation of a several week history of cough with nausea, vomiting, and elevated blood pressure. Recently at [facility] for similar, including told of slow heart rate seen by Dr Bustamante on telemetry for 5 days. Told no need for further testing, given outpatient appointment. Noted on tele with brief 2:1 AV conduction with narrow QRS. No chest pain, sob, orthopnea, PND or edema. Exercise tolerance is limited by DJD, uses a cane. - Current Medication List Current Medications: Active Medications Sodium Chloride (Normal Saline -) 1,000 mls @ 75 mls/hr IV ASDIR [facility] Last Admin: 07/16/18 18:47 Dose: 75 mls/hr Lidocaine (Lidoderm Patch -) 1 patch TP DAILY [facility] Last Admin: 07/16/18 18:35 Dose: 1 patch Lisinopril (Prinivil) 10 mg PO DAILY [facility] Metformin HCl (Glucophage -) 1,000 mg PO BID@0700,1630 [facility] Last Admin: 07/17/18 06:46 Dose: Not Given Miscellaneous (Lidoderm Patch Removal) 1 each MC DAILY@2200 [facility] Pantoprazole Sodium (Protonix -) 40 mg PO DAILY [facility] - Objective Vital Signs: Vital Signs Temperature 98.8 F 07/16/18 06:53 Pulse Rate 70 07/17/18 05:50 Respiratory Rate 18 07/17/18 05:50 Blood Pressure 119/68 07/17/18 05:50 O2 Sat by Pulse Oximetry (%) 98 07/17/18 05:50 Constitutional: Yes: No Distress, Calm Eyes: Yes: Conjunctiva Clear, EOM Intact HENT: Yes: Normocephalic Neck: Yes: Trachea Midline Cardiovascular: Yes: Regular Rate and Rhythm Respiratory: Yes: CTA Bilaterally Gastrointestinal: Yes: Normal Bowel Sounds, Soft Musculoskeletal: Yes: WNL Extremities: Yes: WNL Edema: No Peripheral Pulses WNL: Yes Labs: CBC, BMP 07/17/18 05:30 07/17/18 05:30 INR, PTT INR 1.03 (0.83-1.09) 07/16/18 05:00 Assessment/Plan 72 yo female w/ pmh of arthritis, osteoporosis, DM, HLD, colitis who presents for evaluation of a several week history of cough with nausea, vomiting, and elevated blood pressure. Recently at [facility] for similar, including told of slow heart rate seen by Dr Bustamante on telemetry for 5 days. Told no need for further testing, given outpatient appointment. Noted on tele with brief 2:1 AV conduction with narrow QRS. --2:1 AV conduction with narrow QRS is 95% or more likely to be benign wenchebach rather than Mobitz 2. --No need for telemetry --treat underlying cause and hyponatremia. --Get dc summary from [facility] --will need op fu with Dr Bustamante. --will see as needed.
[2018-07-17] MEDS ORDERED: PT OWN MED DRAWER 7, Y5N ONE ×2 (10:15→10:20)
[2018-07-17] MEDS: PANTOPRAZOLE 40 MG TABLET (FP) PO SCH (10:17)
[2018-07-17] MEDS: LISINOPRIL 10 MG TABLET (FP) PO SCH ×2 (10:17→10:26)
[2018-07-17] MEDS: LIDOCAINE 5% TOPICAL PATCH TP SCH (10:18)
[2018-07-17] MEDS ORDERED: PNEUMOC 13-VAL CONJ-DIP CRM/PF 0.5 ML DISP.SYRIN IM ONE (14:00)
[2018-07-17] MEDS: SODIUM CHLORIDE 1,000 ML IV SCH (14:39)
--- NOTE | 2018-07-17 15:02 | PN ---
Progress Note, Physician Chief Complaint: Hyponatremia HTN Cough History of Present Illness: Previous events and notes reviewed awake and alert, lying in bed NAD eval by Cardiology and tele monitoring discontinued, patient admitted to med- surg floor Na level 129, low but beginning to trend upward - Current Medication List Current Medications: Active Medications Acetaminophen (Tylenol -) 650 mg PO Q4H PRN PRN Reason: PAIN Sodium Chloride (Normal Saline -) 1,000 mls @ 75 mls/hr IV ASDIR [facility] Last Admin: 07/17/18 14:39 Dose: 75 mls/hr Lidocaine (Lidoderm Patch -) 1 patch TP DAILY [facility] Last Admin: 07/17/18 10:18 Dose: 1 patch Lisinopril (Prinivil) 10 mg PO DAILY [facility] Last Admin: 07/17/18 10:26 Dose: Not Given Metformin HCl (Glucophage -) 1,000 mg PO BID@0700,1630 [facility] Last Admin: 07/17/18 06:46 Dose: Not Given Miscellaneous (Lidoderm Patch Removal) 1 each MC DAILY@2200 [facility] Pantoprazole Sodium (Protonix -) 40 mg PO DAILY [facility] Last Admin: 07/17/18 10:17 Dose: 40 mg - Objective Vital Signs: Vital Signs Temperature 97.9 F 07/17/18 12:15 Pulse Rate 76 07/17/18 12:15 Respiratory Rate 22 H 07/17/18 12:15 Blood Pressure 121/37 L 07/17/18 12:15 O2 Sat by Pulse Oximetry (%) 99 07/17/18 12:15 Constitutional: Yes: Well Nourished, No Distress, Calm Eyes: Yes: Conjunctiva Clear Neck: Yes: Supple Cardiovascular: Yes: Regular Rate and Rhythm Respiratory: Yes: Regular, CTA Bilaterally Gastrointestinal: Yes: Normal Bowel Sounds, Soft Musculoskeletal: Yes: WNL Extremities: Yes: WNL Edema: No Integumentary: Yes: WNL Neurological: Yes: Alert, Oriented Psychiatric: Yes: Alert, Oriented Labs: CBC, BMP 07/17/18 05:30 07/17/18 05:30 INR, PTT INR 1.03 (0.83-1.09) 07/16/18 05:00 <Serena Pena - Last Filed: 07/17/18 14:54> - Current Medication List Current Medications: Active Medications Acetaminophen (Tylenol -) 650 mg PO Q4H PRN PRN Reason: PAIN Last Admin: 07/18/18 06:31 Dose: 650 mg Sodium Chloride (Normal Saline -) 1,000 mls @ 75 mls/hr IV ASDIR [facility] Last Admin: 07/18/18 02:41 Dose: 75 mls/hr Lidocaine (Lidoderm Patch -) 1 patch TP DAILY [facility] Last Admin: 07/17/18 10:18 Dose: 1 patch Losartan Potassium (Cozaar -) 25 mg PO DAILY [facility] Melatonin (Melatonin) 5 mg PO HS PRN PRN Reason: INSOMNIA Last Admin: 07/17/18 21:52 Dose: 5 mg Metformin HCl (Glucophage -) 1,000 mg PO BID@0700,1630 [facility] Last Admin: 07/18/18 06:31 Dose: 1,000 mg Miscellaneous (Lidoderm Patch Removal) 1 each MC DAILY@2200 [facility] Last Admin: 07/17/18 21:52 Dose: 1 each Pantoprazole Sodium (Protonix -) 40 mg PO DAILY [facility] Last Admin: 07/17/18 10:17 Dose: 40 mg - Objective Vital Signs: Vital Signs Temperature 97.6 F 07/17/18 22:00 Pulse Rate 70 07/17/18 22:00 Respiratory Rate 20 07/17/18 22:00 Blood Pressure 142/70 07/17/18 22:00 O2 Sat by Pulse Oximetry (%) 99 07/17/18 21:00 Labs: CBC, BMP 07/17/18 05:30 07/17/18 19:00 INR, PTT INR 1.03 (0.83-1.09) 07/16/18 05:00 <Ana Jacobo - Last Filed: 07/18/18 07:04> Problem List - Problems (1) HTN (hypertension) Code(s): I10 - ESSENTIAL (PRIMARY) HYPERTENSION (2) Hyponatremia Code(s): E87.1 - HYPO-OSMOLALITY AND HYPONATREMIA (3) Nausea & vomiting Code(s): R11.2 - NAUSEA WITH VOMITING, UNSPECIFIED Qualifiers: Vomiting type: unspecified Vomiting Intractability: unspecified Qualified Code(s): R11.2 - Nausea with vomiting, unspecified (4) Abdominal pain Code(s): R10.9 - UNSPECIFIED ABDOMINAL PAIN Qualifiers: Abdominal location: generalized Qualified Code(s): R10.84 - Generalized abdominal pain (5) Diabetes Code(s): E11.9 - TYPE 2 DIABETES MELLITUS WITHOUT COMPLICATIONS Qualifiers: Diabetes mellitus type: type 2 <Serena Pena - Last Filed: 07/17/18 14:54> Assessment/Plan -tele monitoring d/c'd, admitted to med-surg floor -cont with NS at 75cc/hr -nephrology consult pending -neuro checks -Na level improving, will cont to trend -cardiology recommendation appreciated -cont with lisinopril, hold if systolic BP <100 and/or diastolic <60 -BGM ACHS, cont metformin -dvt ppx -fall precaution -PT eval <Serena Pena - Last Filed: 07/17/18 14:54> PATIENT SEEN AND EXAMINED AND I AGREE WITH THE ABOVE NOTE <Ana Jacobo - Last Filed: 07/18/18 07:04>
--- NOTE | 2018-07-17 15:09 | CONSULT ---
Consult - text type - Consultation Consultation Note: Renal Consult for Hyponatremia This is a 72 year old woman with hx of hypertension, DM, Colitis, hyponatremia who presented with cough with associated vomiting and noted to have hyponatermia with serum Na of 122. Pt states that she has had a cough for 1 month. Was recently admitted at [facility] for similiar complaints. Reports drinking water and tolerating solute intake. Denies any fever or chills. Reports being checked for Flu but it was negative. Pt is on ACEi. Drinks about 1 L of water of day per the patient. On IVF in the hospital. No Abd pain, chest pain. PMhx: as above Allergies: as listed in Medical record Family Hx: NC social hx: no T/A/D ROS: as per HPI Home Medications Medication Instructions Recorded Acetaminophen [Tylenol] 500 mg PO Q8H PRN 07/16/18 Icosapent Ethyl [Vascepa] 2 cap PO BID 07/16/18 Lipase/Protease/Amylase [Creon Dr 1 each PO TID 07/16/18 36,000 Units Capsule] Liraglutide [Victoza -] 0.6 mg SQ DAILY 07/16/18 Omeprazole 40 mg PO DAILY 07/16/18 Vital Signs Temperature 97.9 F 07/17/18 12:15 Pulse Rate 76 07/17/18 12:15 Respiratory Rate 22 H 07/17/18 12:15 Blood Pressure 121/37 L 07/17/18 12:15 O2 Sat by Pulse Oximetry (%) 99 07/17/18 12:15 Intake & Output 07/14/18 07/15/18 07/16/18 07/17/18 23:59 23:59 23:59 23:59 Weight 67.132 kg 67.132 kg NAD awake and alert cough RRR CTA, no rales or wheeze soft NT/ND No Le edema CBC, BMP 07/17/18 05:30 07/17/18 05:30 Current Medications Acetaminophen (Tylenol -) 650 mg PO Q4H PRN PRN Reason: PAIN Sodium Chloride (Normal Saline -) 1,000 mls @ 75 mls/hr IV ASDIR TOAN Last Admin: 07/17/18 14:39 Dose: 75 mls/hr Lidocaine (Lidoderm Patch -) 1 patch TP DAILY TOAN Last Admin: 07/17/18 10:18 Dose: 1 patch Lisinopril (Prinivil) 10 mg PO DAILY [facility] Last Admin: 07/17/18 10:26 Dose: Not Given Metformin HCl (Glucophage -) 1,000 mg PO BID@0700,1630 [facility] Last Admin: 07/17/18 06:46 Dose: Not Given Miscellaneous (Lidoderm Patch Removal) 1 each MC DAILY@2200 [facility] Pantoprazole Sodium (Protonix -) 40 mg PO DAILY [facility] Last Admin: 07/17/18 10:17 Dose: 40 mg 72 year old woman with hx of hypertension, DM, Colitis, hyponatremia who presented with cough with assoicated vomiting and noted to have hyponatermia with serum Na of 122. #Hyponatremia (hypovolemic vs. SIADH) #Cough r/o influenza #Hypertension #DM #Anemia Check urine studies for Urine OSM, Urine NA Add on serum OSM to am labs continue isotonic saline for now given improvement in serum Na Repeat Na level this evening No acute indication for 3% saline Goal rate of improvement ~8 in 24 hours D/c ACEi because of cough Start Losartan 25mg starting tomorrow Check iron profile in AM, no urgent indication for transfusion at this time Thank you Will follow Garfield Alonso DO
[2018-07-17] MEDS: ACETAMINOPHEN 325 MG TABLET (FP) PO PRN ×2 (16:16→20:39)
[2018-07-17 19:08] LABS: OSMOLALITY,SERUM 275 mosm/kg (278-305)
[2018-07-17] MEDS: LIDOCAINE PATCH REMOVAL MC SCH (21:52)
[2018-07-17] MEDS: MELATONIN 5 MG TABLETS PO PRN (21:52)
[2018-07-18] MEDS: ACETAMINOPHEN 325 MG TABLET (FP) PO PRN ×4 (01:29→21:47)
[2018-07-18] MEDS ORDERED: guaiFENesin 200 MG/10 ML 10 ML UNIT-DOSE CUPS PO ONE (01:42)
[2018-07-18] MEDS: SODIUM CHLORIDE 1,000 ML IV SCH (02:41)
[2018-07-18] MEDS: metFORMIN HCL 500 MG TABLET (FP) PO SCH ×2 (06:31→16:57)
[2018-07-18 07:50] LABS: HEMATOCRIT 26.5 % (32.4-45.2); MCH 27.7 pg (25.7-33.7); MCHC 34.1 g/dl (32.0-36.0); MEAN CELL VOLUME 81.2 fl (80-96); MEAN PLT VOLUME 7.4 fl (7.5-11.1); PLATELET COUNT 394 K/MM3 (134-434); RBC 3.26 M/mm3 (3.60-5.2); RDW 14.7 % (11.6-15.6); WHITE BLOOD COUNT 7.6 K/mm3 (4.0-10.0)
[2018-07-18 08:34] LABS: ALBUMIN 3.5 g/dl (3.4-5.0); ALK PHOS 101 U/L (45-117); ANION GAP 9 MMOL/L (8-16); BILIRUBIN,TOTAL 0.3 mg/dL (0.2-1); BLOOD UREA NITROGEN 10 mg/dL (7-18); CALCIUM 8.4 mg/dL (8.5-10.1); CHLORIDE 99 mmol/L (98-107); CO2 23 mmol/L (21-32); CREATININE 0.6 mg/dL (0.55-1.3); GLUCOSE,RANDOM 130 mg/dL (74-106); POTASSIUM 4.3 mmol/L (3.5-5.1); SGOT/AST 12 U/L (15-37); SGPT/ALT 13 U/L (13-61); SODIUM 132 mmol/L (136-145); TOT PROT 6.7 g/dl (6.4-8.2)
--- NOTE | 2018-07-18 09:44 | PN ---
Progress Note, Physician - Current Medication List Current Medications: Active Medications Acetaminophen (Tylenol -) 650 mg PO Q4H PRN PRN Reason: PAIN Last Admin: 07/18/18 06:31 Dose: 650 mg Lidocaine (Lidoderm Patch -) 1 patch TP DAILY [facility] Last Admin: 07/17/18 10:18 Dose: 1 patch Losartan Potassium (Cozaar -) 25 mg PO DAILY [facility] Melatonin (Melatonin) 5 mg PO HS PRN PRN Reason: INSOMNIA Last Admin: 07/17/18 21:52 Dose: 5 mg Metformin HCl (Glucophage -) 1,000 mg PO BID@0700,1630 [facility] Last Admin: 07/18/18 06:31 Dose: 1,000 mg Miscellaneous (Lidoderm Patch Removal) 1 each MC DAILY@2200 [facility] Last Admin: 07/17/18 21:52 Dose: 1 each Pantoprazole Sodium (Protonix -) 40 mg PO DAILY [facility] Last Admin: 07/17/18 10:17 Dose: 40 mg - Objective Vital Signs: Vital Signs Temperature 98.2 F 07/18/18 09:34 Pulse Rate 73 07/18/18 09:34 Respiratory Rate 18 07/18/18 09:34 Blood Pressure 150/70 07/18/18 09:34 O2 Sat by Pulse Oximetry (%) 99 07/17/18 21:00 Cardiovascular: Yes: Regular Rate and Rhythm Respiratory: Yes: Regular, CTA Bilaterally Gastrointestinal: Yes: Normal Bowel Sounds, Soft. No: Tenderness Labs: CBC, BMP 07/18/18 07:20 07/18/18 07:20 INR, PTT INR 1.03 (0.83-1.09) 07/16/18 05:00 Problem List - Problems (1) Hyponatremia Assessment/Plan: -Na improving -will dc ivf -will need close monitoring as outpatient -renal on board Code(s): E87.1 - HYPO-OSMOLALITY AND HYPONATREMIA (2) Anemia Assessment/Plan: -Dates back to June--some improvement -check iron studies -will need further monitoring and w/u as outpatient Code(s): D64.9 - ANEMIA, UNSPECIFIED (3) S/P TKR (total knee replacement) Assessment/Plan: -Continue with outpatient PT Code(s): Z96.659 - PRESENCE OF UNSPECIFIED ARTIFICIAL KNEE JOINT (4) HTN (hypertension) Assessment/Plan: Vital Signs Period Temp Pulse Resp BP Sys/Jonas Pulse Ox Last 24 Hr 97.3 F-98.2 F 46-83 18-22 119-150/37-87 99-99 Monitor Code(s): I10 - ESSENTIAL (PRIMARY) HYPERTENSION (5) Diabetes Assessment/Plan: -BGM _Metfrormin Code(s): E11.9 - TYPE 2 DIABETES MELLITUS WITHOUT COMPLICATIONS Qualifiers: Diabetes mellitus type: type 2 (6) Cough due to BHANU inhibitor Assessment/Plan: -Off bhanu -On losartin Code(s): R05 - COUGH; T46.4X5A - ADVERSE EFFECT OF [id number] INHIBITORS, INIT
[2018-07-18] MEDS ORDERED: PT OWN MED DRAWER 7, Y5N ONE (09:57)
[2018-07-18] MEDS: PANTOPRAZOLE 40 MG TABLET (FP) PO SCH (09:59)
[2018-07-18] MEDS: LIDOCAINE 5% TOPICAL PATCH TP SCH (09:59)
[2018-07-18] MEDS: LOSARTAN POTASSIUM 25 MG TABLET PO SCH (09:59)
--- NOTE | 2018-07-18 19:18 | CON.GI ---
Consult Consult Specialty:: GI - History of Present Illness History of Present Illness: 72 y/o F was admitted with severe hyponatremia, second degree A_V block Mobitz type 2 nausea and vomiting. I was asked o see the patient because of anemia. She underwent left knee surgery at [facility] last May 2018. Since that time she was takinf Aspirin and NSAID. She had episodes of severe epistaxsis. She has mild epigastric pain associated with nausea but no vomiting. She is suppose to have a colonoscopy last year but cancelled because of her surgery. - Past Medical History Cardio/Vascular: Yes: HTN, Hyperlipdemia Gastrointestinal: Yes: Gastritis - Past Surgical History Past Surgical History: Yes: Appendectomy - Alcohol/Substance Use Hx Alcohol Use: No - Smoking History Smoking history: Never smoked Have you smoked in the past 12 months: No - Social History ADL: Support Services Home Medications - Allergies Allergies/Adverse Reactions: Allergies Allergy/AdvReac Type Severity Reaction Status Date / Time ketorolac [From Toradol] Allergy Intermediate Verified 07/16/18 20:53 codeine Allergy Verified 07/16/18 06:51 cortisone Allergy Verified 07/16/18 06:51 fentanyl Allergy Verified 07/16/18 06:51 hydrocodone Allergy Verified 07/16/18 06:51 morphine Allergy Verified 07/16/18 06:51 oxycodone Allergy Verified 07/16/18 06:51 penicillin V Allergy Verified 07/16/18 06:51 tramadol Allergy Verified 07/16/18 06:51 - Home Medications Home Medications: Ambulatory Orders Acetaminophen [Tylenol] 500 mg PO Q8H PRN 07/16/18 Icosapent Ethyl [Vascepa] 2 cap PO BID 07/16/18 Lipase/Protease/Amylase [Mae Dr 36,000 Units Capsule] 1 each PO TID 07/16/18 Liraglutide [Victoza -] 0.6 mg SQ DAILY 07/16/18 Omeprazole 40 mg PO DAILY 07/16/18 Pregabalin [Lyrica -] 50 mg PO TID 07/17/18 Review of Systems - Review of Systems Constitutional: denies: No Symptoms, Chills, Diaphoresis, Fever, Lethargy, Loss of Appetite, Malaise, Night Sweats, Unintentional Wgt. Loss, Weakness, Other Eyes: denies: No Symptoms, Blind Spots, Blurred Vision, Double Vision, Eye Pain , Floaters, Photophobia, Recent Change in Vision, Other HENT: denies: No Symptoms, Difficult Swallowing, Ear Discharge, Ear Pain, Epistaxis, Gingival Bleeding, Hearing Loss, Mouth Swelling, Nasal Congestion, Ocular Prosthesis, Throat Pain, Toothache, Ringing in Ears, Other Neck: denies: No Symptoms, Decreased ROM, Lumps, Pain on Movement, Stiffness, Swollen Glands, Tenderness, Other Cardiovascular: denies: No Symptoms, Chest Pain, Edema, Palpitations, Shortness of Breath, Other Physical Exam-GI Vital Signs: Vital Signs Temperature 98.0 F 07/18/18 18:00 Pulse Rate 52 L 07/18/18 18:00 Respiratory Rate 18 07/18/18 18:00 Blood Pressure 140/66 07/18/18 18:00 O2 Sat by Pulse Oximetry (%) 99 07/18/18 09:00 Constitutional: Yes: Well Nourished Eyes: Yes: Conjunctiva Clear HENT: Yes: Atraumatic Neck: Yes: Supple Cardiovascular: Yes: Regular Rate and Rhythm Respiratory: Yes: CTA Bilaterally ...Palpate: Yes: Soft. No: Firm/Rigid, Guarding, Hepatomegaly, Mass, Pulsatile Mass, Splenomegaly, Tenderness Labs: CBC, BMP 07/18/18 07:20 07/18/18 07:20 INR, PTT INR 1.03 (0.83-1.09) 07/16/18 05:00 Current Medications Generic Name Dose Route Start Last Admin Trade Name Freq PRN Reason Stop Dose Admin Acetaminophen 650 mg 07/17/18 10:20 07/18/18 15:38 Tylenol - PO 650 mg Q4H PRN Administration PAIN Lidocaine 1 patch 07/16/18 17:15 07/18/18 09:59 Lidoderm Patch - TP 1 patch DAILY TOAN Administration Losartan Potassium 25 mg 07/18/18 10:00 07/18/18 09:59 Cozaar - PO 25 mg DAILY TO[facility] Administration Melatonin 5 mg 07/17/18 21:39 07/17/18 21:52 Melatonin PO 5 mg HS PRN Administration INSOMNIA Metformin HCl 1,000 mg 07/16/18 16:30 07/18/18 16:57 Glucophage - PO 1,000 mg BID@0700,1630 TO[facility] Administration Miscellaneous 1 each 07/17/18 22:00 07/17/18 21:52 Lidoderm Patch Removal MC 1 each DAILY@2200 TOAN Administration Pantoprazole Sodium 40 mg 07/17/18 10:00 07/18/18 09:59 Protonix - PO 40 mg DAILY TOAN Administration Ambulatory Orders Acetaminophen [Tylenol] 500 mg PO Q8H PRN 07/16/18 Icosapent Ethyl [Vascepa] 2 cap PO BID 07/16/18 Lipase/Protease/Amylase [Mae Wall 36,000 Units Capsule] 1 each PO TID 07/16/18 Liraglutide [Victoza -] 0.6 mg SQ DAILY 07/16/18 Omeprazole 40 mg PO DAILY 07/16/18 Pregabalin [Lyrica -] 50 mg PO TID 07/17/18 Problem List - Problems (1) GERD (gastroesophageal reflux disease) Assessment/Plan: continue Protonix Reglan 5mg 30 min ac for 4 weeks Code(s): K21.9 - GASTRO-ESOPHAGEAL REFLUX DISEASE WITHOUT ESOPHAGITIS (2) Anemia Assessment/Plan: most llikely secondary to previous surgery and possibly epistaxsis r/o occult gi bleeding R> patient was made aware to follow up EGD and colonoscopy as an outpatient Code(s): D64.9 - ANEMIA, UNSPECIFIED (3) Constipation Assessment/Plan: Miralax 34 grams daily Code(s): K59.00 - CONSTIPATION, UNSPECIFIED
[2018-07-18] MEDS ORDERED: MAGNESIUM CITRATE 300 ML BOTTLE PO ONE (19:30)
[2018-07-18] MEDS: LIDOCAINE PATCH REMOVAL MC SCH (21:26)
[2018-07-18] MEDS: POLYETHYLENE GLYCOL 3350 119 GM BTL PO SCH ×2 (21:26→21:29)
[2018-07-18] MEDS: MELATONIN 5 MG TABLETS PO PRN (21:47)
[2018-07-19] MEDS: ACETAMINOPHEN 325 MG TABLET (FP) PO PRN (03:46)
[2018-07-19] MEDS: metFORMIN HCL 500 MG TABLET (FP) PO SCH (06:25)
[2018-07-19] MEDS: METOCLOPRAMIDE HCL 10 MG TABLET (FP) PO SCH ×2 (06:25→11:32)
--- NOTE | 2018-07-19 07:50 | PN ---
GI Progress Note Subjective: Patient states feeling better. Denies epigastric pain or nausea. States having BM after starting on Miralax. Iron studies still pending. - Objective Vital Signs: Vital Signs Temperature 97.9 F 07/19/18 06:00 Pulse Rate 68 07/19/18 06:00 Respiratory Rate 17 07/19/18 06:00 Blood Pressure 136/72 07/19/18 06:00 O2 Sat by Pulse Oximetry (%) 99 07/18/18 21:00 Constitutional: Well Nourished, No Distress, Calm Eyes: Yes: Conjunctiva Clear Neck: Yes: Supple Cardiovascular: Yes: Regular Rate and Rhythm Respiratory: Yes: Regular, CTA Bilaterally Gastrointestinal Inspection: Yes: WNL ...Auscultate: Yes: Normoactive Bowel Sounds ...Palpate: Yes: Soft Labs: CBC, BMP 07/18/18 07:20 07/18/18 07:20 INR, PTT INR 1.03 (0.83-1.09) 07/16/18 05:00 Problem List - Problems (1) GERD (gastroesophageal reflux disease) Code(s): K21.9 - GASTRO-ESOPHAGEAL REFLUX DISEASE WITHOUT ESOPHAGITIS (2) Anemia Code(s): D64.9 - ANEMIA, UNSPECIFIED (3) Constipation Code(s): K59.00 - CONSTIPATION, UNSPECIFIED
[2018-07-19 08:07] LABS: SERUM IRON SATURATION 6 % (15-55); TOTAL IRON BINDING CAPACITY 356 ug/dL (250-450); UIBC 336 ug/dL (118-369)
[2018-07-19] MEDS: LOSARTAN POTASSIUM 25 MG TABLET PO SCH (09:12)
[2018-07-19] MEDS: PANTOPRAZOLE 40 MG TABLET (FP) PO SCH (09:12)
[2018-07-19] MEDS: LIDOCAINE 5% TOPICAL PATCH TP SCH (09:13)
[2018-07-19] MEDS: POLYETHYLENE GLYCOL 3350 119 GM BTL PO SCH (09:15)
--- NOTE | 2018-07-19 11:28 | PN ---
Progress Note, Physician Chief Complaint: patient given miralax has multiple bm last night chest ct done report pending iron studies noted will give venofer dose today - Current Medication List Current Medications: Active Medications Acetaminophen (Tylenol -) 650 mg PO Q4H PRN PRN Reason: PAIN Last Admin: 07/19/18 03:46 Dose: 650 mg Lidocaine (Lidoderm Patch -) 1 patch TP DAILY [facility] Last Admin: 07/19/18 09:13 Dose: 1 patch Losartan Potassium (Cozaar -) 25 mg PO DAILY [facility] Last Admin: 07/19/18 09:12 Dose: 25 mg Melatonin (Melatonin) 5 mg PO HS PRN PRN Reason: INSOMNIA Last Admin: 07/18/18 21:47 Dose: 5 mg Metformin HCl (Glucophage -) 1,000 mg PO BID@0700,1630 [facility] Last Admin: 07/19/18 06:25 Dose: 1,000 mg Metoclopramide HCl (Reglan -) 5 mg PO TIDAC [facility] Last Admin: 07/19/18 06:25 Dose: 5 mg Miscellaneous (Lidoderm Patch Removal) 1 each MC DAILY@2200 [facility] Last Admin: 07/18/18 21:26 Dose: 1 each Pantoprazole Sodium (Protonix -) 40 mg PO DAILY [facility] Last Admin: 07/19/18 09:12 Dose: 40 mg Polyethylene Glycol (Miralax (For Daily Use) -) 17 gm PO BID [facility] Last Admin: 07/19/18 09:15 Dose: 17 gm - Objective Vital Signs: Vital Signs Temperature 97.6 F 07/19/18 09:34 Pulse Rate 75 07/19/18 09:34 Respiratory Rate 18 07/19/18 09:34 Blood Pressure 140/77 07/19/18 09:34 O2 Sat by Pulse Oximetry (%) 99 07/18/18 21:00 Constitutional: Yes: Calm Cardiovascular: Yes: Regular Rate and Rhythm, S1, S2 Respiratory: Yes: CTA Bilaterally Gastrointestinal: Yes: Normal Bowel Sounds, Soft Edema: No Neurological: Yes: Alert, Oriented Labs: CBC, BMP 07/18/18 07:20 07/18/18 07:20 INR, PTT INR 1.03 (0.83-1.09) 07/16/18 05:00 Problem List - Problems (1) GERD (gastroesophageal reflux disease) Assessment/Plan: protonix reglan 5min ac meals Code(s): K21.9 - GASTRO-ESOPHAGEAL REFLUX DISEASE WITHOUT ESOPHAGITIS (2) Anemia Assessment/Plan: give venofer today h/h noted iron panel shows low iron saturation and level egd/colosncopy as outpatient Code(s): D64.9 - ANEMIA, UNSPECIFIED (3) Hyponatremia Assessment/Plan: sodium level improved Code(s): E87.1 - HYPO-OSMOLALITY AND HYPONATREMIA (4) Cough due to BHANU inhibitor Assessment/Plan: stop acei chest ct pending Code(s): R05 - COUGH; T46.4X5A - ADVERSE EFFECT OF [id number] INHIBITORS, INIT (5) S/P TKR (total knee replacement) Assessment/Plan: lidocaine patch to knee PT eval Code(s): Z96.659 - PRESENCE OF UNSPECIFIED ARTIFICIAL KNEE JOINT
[2018-07-19 12:42] LABS: ANION GAP 10 MMOL/L (8-16); BLOOD UREA NITROGEN 12 mg/dL (7-18); CHLORIDE 100 mmol/L (98-107); CO2 23 mmol/L (21-32); CREATININE 0.7 mg/dL (0.55-1.3); GLUCOSE,RANDOM 134 mg/dL (74-106); POTASSIUM 4.9 mmol/L (3.5-5.1); SODIUM 133 mmol/L (136-145)
--- NOTE | 2018-07-19 14:59 | PN ---
Progress Note (short form) - Note Progress Note: Renal follow up for Hyponatremia Pt seen and examined at the bedside no acute complaints feels well, tolerating oral diet, no HOBBS, confusion, lethargy, weakness s/p CT of the chest yesterday Vital Signs Temperature 97.6 F 07/19/18 09:34 Pulse Rate 75 07/19/18 09:34 Respiratory Rate 18 07/19/18 09:34 Blood Pressure 140/77 07/19/18 09:34 O2 Sat by Pulse Oximetry (%) 99 07/18/18 21:00 Intake & Output 07/16/18 07/17/18 07/18/18 07/19/18 23:59 23:59 23:59 23:59 Intake Total 1015 1750 360 Balance 1015 1750 360 Weight 67.132 kg 67.132 kg NAD no LE edema CTA CBC, BMP 07/18/18 07:20 07/19/18 11:25 Current Medications Acetaminophen (Tylenol -) 650 mg PO Q4H PRN PRN Reason: PAIN Last Admin: 07/19/18 03:46 Dose: 650 mg Lidocaine (Lidoderm Patch -) 1 patch TP DAILY [facility] Last Admin: 07/19/18 09:13 Dose: 1 patch Losartan Potassium (Cozaar -) 25 mg PO DAILY [facility] Last Admin: 07/19/18 09:12 Dose: 25 mg Melatonin (Melatonin) 5 mg PO HS PRN PRN Reason: INSOMNIA Last Admin: 07/18/18 21:47 Dose: 5 mg Metformin HCl (Glucophage -) 1,000 mg PO BID@0700,1630 [facility] Last Admin: 07/19/18 06:25 Dose: 1,000 mg Metoclopramide HCl (Reglan -) 5 mg PO TIDAC [facility] Last Admin: 07/19/18 11:32 Dose: 5 mg Miscellaneous (Lidoderm Patch Removal) 1 each MC DAILY@2200 [facility] Last Admin: 07/18/18 21:26 Dose: 1 each Pantoprazole Sodium (Protonix -) 40 mg PO DAILY [facility] Last Admin: 07/19/18 09:12 Dose: 40 mg Polyethylene Glycol (Miralax (For Daily Use) -) 17 gm PO BID [facility] Last Admin: 07/19/18 09:15 Dose: 17 gm 72 year old woman with hx of hypertension, DM, Colitis, hyponatremia who presented with cough with assoicated vomiting and noted to have hyponatermia with serum Na of 122. #Hyponatremia (hypovolemic vs. SIADH) #Cough r/o influenza #Hypertension #DM #Anemia Urine studies indicative of ADH release but serum Na improved with isotonic saline Serum Na is now stable Ct of the chest showed no acute pathology stable for discharge with continued w/u and follow up of Na levels as an outpatient Goal rate of improvement ~8 in 24 hours Would continue ARB on discharge as opposed to ACEi Continue Losartan 25mg daily GI following Garfield Alonso DO
[2018-07-19 15:25] VITALS: BP 132/63; PULSE 65; TEMP 98.2
--- NOTE | 2018-07-19 16:04 | DS ---
Physical Examination Vital Signs: Vital Signs Temperature 98.2 F 07/19/18 14:23 Pulse Rate 65 07/19/18 14:23 Respiratory Rate 20 07/19/18 14:23 Blood Pressure 132/63 07/19/18 14:23 O2 Sat by Pulse Oximetry (%) 99 07/19/18 09:00 Constitutional: Yes: Calm Cardiovascular: Yes: Regular Rate and Rhythm, S1, S2 Respiratory: Yes: CTA Bilaterally Gastrointestinal: Yes: Normal Bowel Sounds, Soft Neurological: Yes: Alert, Oriented Labs: CBC, BMP 07/18/18 07:20 07/19/18 11:25 Discharge Summary Reason For Visit: HYPONATREMIA NAUSEA AND VOMITING Current Active Problems Anemia (Acute) Constipation (Acute) Cough due to BHANU inhibitor (Acute) GERD (gastroesophageal reflux disease) (Acute) HTN (hypertension) (Acute) Hyponatremia (Acute) Nausea & vomiting (Acute) S/P TKR (total knee replacement) (Acute) Hospital Course: PCP: Yasmany Dennis - Admission Chief Complaint: Nausea, Vomiting, Cough History of Present Illness: Patient is a 72 year old female with complaints of nausea, vomiting, and cough since discharge from [facility] recently. Patient complain of productive cough with clear phlegm. Patient states experiencing post-tussive vomiting and pleuritic pain with cough. On examination complain of headache with visual disturbances. In ED labs show Hyponatremia of 124. Patient to be admitted for Hyponatremia. History Source: Patient Limitations to Obtaining History: No Limitations chest ct negative done bc of coughing anemia EGD and colonscopy as outpatient start iron nad vitamin c na now improved dc home Condition: Improved - Instructions Diet, Activity, Other Instructions: FU with PMD in one week iron tablets with vitamin C follow up with GI doctor for egd and colonscopy Disposition: HOME - Home Medications Comprehensive Discharge Medication List: Ambulatory Orders Acetaminophen [Tylenol] 500 mg PO Q8H PRN 07/16/18 Icosapent Ethyl [Vascepa] 2 cap PO BID 07/16/18 Lipase/Protease/Amylase [Mae Wall 36,000 Units Capsule] 1 each PO TID 07/16/18 Liraglutide [Victoza -] 0.6 mg SQ DAILY 07/16/18 Omeprazole 40 mg PO DAILY 07/16/18 Pregabalin [Lyrica -] 50 mg PO TID 07/17/18
== END 2018-07-19 17:15 | disposition home health service (06) | DRG 641 ==
LOC: JER 04:48 → JERBED 06:16 → J5S 07-17 11:53
PROVIDERS: ADMIT Internal Medicine; ATTEND Family Medicine
DX: E87.1 Hypo-osmolality and hyponatremia (principal); D64.9 Anemia, unspecified; K21.9 Gastro-esophageal reflux disease without esophagitis; R05 Cough; T46.4X5A Adverse effect of angiotensin-converting-enzyme inhibitors, initial encounter; I10 Essential (primary) hypertension; K59.00 Constipation, unspecified; E11.9 Type 2 diabetes mellitus without complications; E78.5 Hyperlipidemia, unspecified
CPT/HCPCS: 36415; 71045-TC-FY; 71250-TC; 80048; 80053; 81003; 82436; 82533; 82550; 82570; 82728; 82962; 83540; 83550; 83605; 83930; 83935; 84133; 84295; 84300; 84443; 84484; 85025; 85027; 85610; 85730; 87040; 87086; 90670; 93005; 93010; 97116-GP; 99285-25; J7030

== ENCOUNTER 2018-07-23 14:37 | Emergency (ER) | payer OTHER ==
[2018-07-23 14:53] VITALS: BP 156/70; PULSE 57; TEMP 98.4; BMI 26.9
--- NOTE | 2018-07-23 14:53 | PDOC ---
Rapid Medical Evaluation Chief Complaint: Back Pain Time Seen by Provider: 07/23/18 14:43 Medical Evaluation: Allergies Allergy/AdvReac Type Severity Reaction Status Date / Time ketorolac [From Toradol] Allergy Intermediate Verified 07/16/18 20:53 codeine Allergy Verified 07/16/18 06:51 cortisone Allergy Verified 07/16/18 06:51 fentanyl Allergy Verified 07/16/18 06:51 hydrocodone Allergy Verified 07/16/18 06:51 morphine Allergy Verified 07/16/18 06:51 oxycodone Allergy Verified 07/16/18 06:51 penicillin V Allergy Verified 07/16/18 06:51 tramadol Allergy Verified 07/16/18 06:51 07/23/18 14:44 I have performed a brief in-person evaluation of this patient. The patient presents with a chief complaint of:acute on chronic back pain, states was coughing and vomiting past 2 days and had recurrance of pain to low back / right side. Pertinent physical exam findings: tearful/ moaning / unable to move well. I have ordered the following: EKG, The patient will proceed to the ED for further evaluation. 07/23/18 14:54 Discharge Disposition - Diagnosis Back pain - Discharge Dispostion Condition at time of disposition: Stable - Referrals Referrals: Ana Jacobo MD [Primary Care Provider] - - Patient Instructions - Post Discharge Activity
[2018-07-23] MEDS ORDERED: LIDOCAINE 5% TOPICAL PATCH TP ONE (15:55)
[2018-07-23] MEDS ORDERED: diazePAM 2 MG TABLET PO ONE (15:56)
[2018-07-23] MEDS ORDERED: LIDOCAINE 5% TOPICAL PATCH ONE (15:59)
--- NOTE | 2018-07-23 15:59 | PDOC ---
History of Present Illness - General Chief Complaint: Back Pain Stated Complaint: BACK PAIN Time Seen by Provider: 07/23/18 14:43 History Source: Patient Exam Limitations: No Limitations - History of Present Illness Initial Comments: 07/23/18 15:58 72 year old female with DM, HTN, osteoarthritis, arthritis and left knee surgery presents with low back pain. Patient reports that she coughed really hard yesterday and since then with pain in her lower back that prevents her from sitting and standing. State Multiple drug allergy and unable to take pain medication. Occurred: reports: yesterday Severity: reports: moderate Pain Location: reports: back Method of Injury: Yes: other (coughing) Modifying Factors: improves with: immobilization Loss of Consciousness: no loss of consciousness Associated Symptoms (Fall): denies symptoms Past History - Travel Traveled outside of the country in the last 30 days: No - Past Medical History Allergies/Adverse Reactions: Allergies Allergy/AdvReac Type Severity Reaction Status Date / Time ketorolac [From Toradol] Allergy Intermediate Verified 07/16/18 20:53 codeine Allergy Verified 07/16/18 06:51 cortisone Allergy Verified 07/16/18 06:51 fentanyl Allergy Verified 07/16/18 06:51 hydrocodone Allergy Verified 07/16/18 06:51 morphine Allergy Verified 07/16/18 06:51 oxycodone Allergy Verified 07/16/18 06:51 penicillin V Allergy Verified 07/16/18 06:51 tramadol Allergy Verified 07/16/18 06:51 Home Medications: Ambulatory Orders Losartan Potassium [Cozaar -] 25 mg PO DAILY #30 tablet MDD 1 07/19/18 Metoclopramide HCl [Reglan -] 5 mg PO TIDAC #30 tablet MDD 3 07/19/18 Cyclobenzaprine HCl [Flexeril -] 5 mg PO HS #3 tablet 07/23/18 Anemia: No Asthma: No Cancer: No Cardiac Disorders: No CVA: No COPD: No CHF: No Dementia: No Diabetes: Yes GI Disorders: Yes (gastritis,colitis) Disorders: No HTN: Yes Hypercholesterolemia: Yes Liver Disease: No Seizures: No Thyroid Disease: No - Surgical History Abdominal Surgery: No Appendectomy: Yes Cardiac Surgery: No Cholecystectomy: Yes Lung Surgery: No Neurologic Surgery: No Orthopedic Surgery: Yes (Knee) - Immunization History Immunization Up to Date: No - Suicide/Smoking/Psychosocial Hx Smoking History: Never smoked Have you smoked in the past 12 months: No Information on smoking cessation initiated: No Hx Alcohol Use: No Drug/Substance Use Hx: No Substance Use Type: None Trauma Specific PMHX - Complaint Specific PMHX Arthritis: Yes Back Injury: No Neck Injury: No Review of Systems - Review of Systems Able to Perform ROS?: Yes Constitutional: No: Chills, Fever HEENTM: No: Nose Congestion, Throat Pain, Throat Swelling, Mouth Pain Respiratory: Yes: Cough. No: Shortness of Breath, Wheezing Cardiac (ROS): No: Chest Pain ABD/GI: No: Abdominal Distended : No: Burning Musculoskeletal: Yes: Back Pain. No: Muscle Weakness, Neck Pain Integumentary: No: Bruising, Erythema Neurological: Yes: Numbness. No: Headache, Paresthesia *Physical Exam - Vital Signs Last Vital Signs Temp Pulse Resp BP Pulse Ox 98.4 F 57 L 20 156/70 99 07/23/18 14:44 07/23/18 14:44 07/23/18 14:44 07/23/18 14:44 07/23/18 14:44 - Physical Exam General Appearance: Yes: Nourished, Appropriately Dressed. No: Apparent Distress HEENT: positive: MARTINE, TMs Normal, Pharynx Normal Neck: positive: Supple. negative: Lymphadenopathy (R), Lymphadenopathy (L) Respiratory/Chest: positive: Lungs Clear, Normal Breath Sounds Cardiovascular: positive: Regular Rate, S1, S2 Musculoskeletal: positive: Normal Inspection, Other (no mid spinal tenderness, tenderness to left side lower back). 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, Fully Oriented, Alert Moderate Sedation - Procedure Monitoring Vital Signs: Procedure Monitoring Vital Signs Temperature 98.4 F 07/23/18 14:44 Pulse Rate 57 L 07/23/18 14:44 Respiratory Rate 20 07/23/18 14:44 Blood Pressure 156/70 07/23/18 14:44 O2 Sat by Pulse Oximetry (%) 99 07/23/18 14:44 Medical Decision Making - Medical Decision Making 07/23/18 16:12 72 year old female with DM, HTN, osteoarthritis, arthritis and left knee surgery presents with low back pain plan: valium lidacaine patch *DC/Admit/Observation/Transfer Diagnosis at time of Disposition: Back pain - Discharge Dispostion Disposition: HOME Condition at time of disposition: Stable Decision to Admit order: No - Prescriptions Prescriptions: Cyclobenzaprine HCl [Flexeril -] 5 mg PO HS #3 tablet - Referrals Referrals: Ana Jacobo MD [Staff Physician] - - Patient Instructions Additional Instructions: Please take medication at bedtime Call primary physician for a follow up appointment May apply warm compress for 20 minutes 3 to 4 times daily Return for inability to walk - Post Discharge Activity Forms/Work/School Notes: Back to Work
[2018-07-23] MEDS ORDERED: diazePAM 2 MG TABLET ONE (16:00)
[2018-07-23] MEDS ORDERED: LIDOCAINE PATCH REMOVAL MC SCH (22:00)
--- NOTE | 2018-07-24 18:16 | EKG ---
Test Reason : Blood Pressure : / mmHG Vent. Rate : 071 BPM Atrial Rate : 071 BPM P-R Int : 196 ms QRS Dur : 082 ms QT Int : 374 ms P-R-T Axes : 062 -13 053 degrees QTc Int : 406 ms SINUS RHYTHM WITH PREMATURE ATRIAL COMPLEXES IN A PATTERN OF BIGEMINY OTHERWISE NORMAL ECG Confirmed by MD NITESH, AMBER ([id number]) on 07/24/2018 6:16:04 PM Referred By: Confirmed By:AMBER DOWLING MD
== END 2018-07-23 16:26 | disposition home or self-care (01) ==
LOC: JERFT 14:37
DX: M54.5 Low back pain (principal); I10 Essential (primary) hypertension; E11.9 Type 2 diabetes mellitus without complications; M12.9 Arthropathy, unspecified; M19.90 Unspecified osteoarthritis, unspecified site
CPT/HCPCS: 93005; 93010; 99281-25

== ENCOUNTER 2018-08-12 19:58 | Emergency (ER) | payer OTHER ==
[2018-08-12 20:20] VITALS: TEMP 98.8; BMI 24.0
[2018-08-12] MEDS ORDERED: ONDANSETRON 4 MG/2 ML VIAL IVPUSH ONE (20:32)
[2018-08-12] MEDS ORDERED: ONDANSETRON 4 MG/2 ML VIAL IVPB ONE (20:32)
[2018-08-12] MEDS ORDERED: ONDANSETRON 4 MG/2 ML VIAL ONE ×2 (20:33→21:07)
--- NOTE | 2018-08-12 20:34 | PDOC ---
History of Present Illness - General Chief Complaint: Nausea/Vomiting Stated Complaint: NAUSEA/VOMITING Time Seen by Provider: 08/12/18 20:31 - History of Present Illness Initial Comments: 08/12/18 20:34 72 year old woman w/ a past medical history of arthritis, osteoporosis, DM, HLD , colitis who presents w/ dry cough, post-tussive vomiting, central nonradiating burning like chest pain, abdominal pain and back pain that has been ongoing for 10 days but is worse today and now associated with some acid reflux like chest pain for the past 4 days. The patient was hospitalized on the 07/16/18 for the same symptoms and was found to have hyponatremia that was corrected and she was discharged on 07/19/18 with the diagnosis of bronchitis. She denies any fever, dysuria, hematuria. Patient had a L knee replacement 2 months ago. Daughter: Raissa Chen: [phone] Past History - Past Medical History Allergies/Adverse Reactions: Allergies Allergy/AdvReac Type Severity Reaction Status Date / Time ketorolac [From Toradol] Allergy Intermediate Verified 08/12/18 20:19 codeine Allergy Verified 08/12/18 20:19 cortisone Allergy Verified 08/12/18 20:19 fentanyl Allergy Verified 08/12/18 20:19 hydrocodone Allergy Verified 08/12/18 20:19 morphine Allergy Verified 08/12/18 20:19 oxycodone Allergy Verified 08/12/18 20:19 penicillin V Allergy Verified 08/12/18 20:19 tramadol Allergy Verified 08/12/18 20:19 Home Medications: Ambulatory Orders Losartan Potassium [Cozaar -] 25 mg PO DAILY #30 tablet MDD 1 07/19/18 Metoclopramide HCl [Reglan -] 5 mg PO TIDAC #30 tablet MDD 3 07/19/18 Cyclobenzaprine HCl [Flexeril -] 5 mg PO HS #3 tablet 07/23/18 Anemia: No Asthma: No Cancer: No Cardiac Disorders: No CVA: No COPD: No CHF: No Dementia: No Diabetes: Yes GI Disorders: Yes (gastritis,colitis) Disorders: No HTN: Yes Hypercholesterolemia: Yes Liver Disease: No Seizures: No Thyroid Disease: No - Surgical History Abdominal Surgery: No Appendectomy: Yes Cardiac Surgery: No Cholecystectomy: Yes Lung Surgery: No Neurologic Surgery: No Orthopedic Surgery: Yes (Knee) - Immunization History Immunization Up to Date: No - Suicide/Smoking/Psychosocial Hx Smoking History: Never smoked Have you smoked in the past 12 months: No Information on smoking cessation initiated: No Hx Alcohol Use: No Drug/Substance Use Hx: No Substance Use Type: None *Physical Exam - Vital Signs Last Vital Signs Temp Pulse Resp BP Pulse Ox 98.8 F 56 L 22 H 168/96 98 08/12/18 19:58 08/12/18 19:58 08/12/18 19:58 08/12/18 19:58 08/12/18 19:58 Moderate Sedation - Procedure Monitoring Vital Signs: Procedure Monitoring Vital Signs Temperature 98.8 F 08/12/18 19:58 Pulse Rate 56 L 08/12/18 19:58 Respiratory Rate 22 H 08/12/18 19:58 Blood Pressure 168/96 08/12/18 19:58 O2 Sat by Pulse Oximetry (%) 98 08/12/18 19:58 ED Treatment Course - LABORATORY CBC & Chemistry Diagram: 08/12/18 20:42 08/12/18 20:42 Medical Decision Making - Medical Decision Making 08/12/18 21:31 72 year old woman w/ a past medical history of arthritis, osteoporosis, DM, HLD , colitis who presents w/ dry cough, post-tussive vomiting, central nonradiating burning like chest pain, abdominal pain and back pain that has been ongoing for 10 days but is worse today and now associated with some acid reflux like chest pain for the past 4 days. The patient was hospitalized on the 07/16/18 for the same symptoms and was found to have hyponatremia that was corrected and she was discharged on 07/19/18 with the diagnosis of bronchitis. Patient had a L knee replacement 2 months ago. ED Course: consider bronchitis vs influenza vs pna vs viral URI vs GERD r/o PE as patient cannot be PERC ed out, as recent immobilization r/o ACS as patient with chest pain and cardiac risk factors consider pertussis although less likely cbc, cmp, trop bordetella 08/12/18 22:16 labs significant for hyponatremia of 128 troponin negative 1L NaCl going. pending ua 08/12/18 23:10 cxr: unremarkable EKG: normal sinus rhythm HR 75, no interval abnormalities, narrow QRS, ST and T wave segments and morphology normal. ua: unremarkable patient continues to cough second duoneb and decadron influenza negative 08/12/18 23:51 Patient reassessed, still with nearly constant coughing and spitting up clear phlegm *DC/Admit/Observation/Transfer Diagnosis at time of Disposition: Cough - Discharge Dispostion Disposition: HOME Condition at time of disposition: Fair Decision to Admit order: No - Referrals - Patient Instructions Printed Discharge Instructions: DI for Cough -- Adult Additional Instructions: You were seen in the ED for complaints of coughing w/ some chest pain and nausea. In the ED you were evaluated with labwork and imaging. Your results were unremarkable. There does not appear to be an acute need for immediate hospitalization. You are advised to follow up with your Primary Care Physician within 1 week. You were given a prescription for Azithromycin antibiotic. Please take medication as indicated. Return to the ED immediately if you begin coughing blood, vomiting blood, have worsening chest pain, abdominal pain, severe shortness of breath or fever. - Post Discharge Activity
[2018-08-12] MEDS ORDERED: SODIUM CHLORIDE 1,000 ML IV SCH ×2 (20:45→22:45)
[2018-08-12 20:53] LABS: BASO % 1.2 % (0-2.0); HEMATOCRIT 33.1 % (32.4-45.2); LYMPH % 36.3 % (8-40); MCH 26.5 pg (25.7-33.7); MCHC 33.2 g/dl (32.0-36.0); MEAN CELL VOLUME 79.8 fl (80-96); MEAN PLT VOLUME 7.3 fl (7.5-11.1); MONO % 9.6 % (3.8-10.2); NEUT % 49.9 % (42.8-82.8); PLATELET COUNT 360 K/MM3 (134-434); RBC 4.15 M/mm3 (3.60-5.2); RDW 15.8 % (11.6-15.6); WHITE BLOOD COUNT 7.6 K/mm3 (4.0-10.0)
[2018-08-12 21:18] LABS: BLOOD UREA NITROGEN 10 mg/dL (7-18); CREATININE 0.8 mg/dL (0.55-1.3); GLUCOSE,RANDOM 83 mg/dL (74-106); POTASSIUM 4.6 mmol/L (3.5-5.1); SODIUM 128 mmol/L (136-145)
[2018-08-12 21:19] LABS: ALBUMIN 4.6 g/dl (3.4-5.0); ALK PHOS 119 U/L (45-117); ANION GAP 9 MMOL/L (8-16); BILIRUBIN,TOTAL 0.3 mg/dL (0.2-1); CALCIUM 9.1 mg/dL (8.5-10.1); CHLORIDE 92 mmol/L (98-107); CO2 28 mmol/L (21-32); SGOT/AST 29 U/L (15-37); SGPT/ALT 27 U/L (13-61); TOT PROT 8.8 g/dl (6.4-8.2)
[2018-08-12] MEDS ORDERED: FAMOTIDINE 20 MG/50 ML IVPB 20 MG/50 ML MG IVPB ONE ×2 (21:21→21:40)
[2018-08-12] MEDS ORDERED: MAG HYDROX/AL HYDROX/SIMETH 30 ML UNIT-DOSE CUP PO ONE (21:21)
[2018-08-12] MEDS ORDERED: guaiFENesin 200 MG/10 ML 10 ML UNIT-DOSE CUPS PO ONE (21:22)
[2018-08-12] MEDS ORDERED: ALBUTEROL SO4 2.5/IPRATROPIUM 0.5 INH SOL 3 ML VIAL.NEB. NEB ONE ×3 (21:27→23:03)
[2018-08-12] MEDS ORDERED: MAG HYDROX/AL HYDROX/SIMETH 30 ML UNIT-DOSE CUP ONE (21:40)
[2018-08-12] MEDS ORDERED: guaiFENesin 200 MG/10 ML 10 ML UNIT-DOSE CUPS ONE (21:41)
--- NOTE | 2018-08-12 22:00 | PDOC ---
Attending Attestation - HPI HPI: 08/12/18 22:06 The patient is a 72 year old female with a past medical history of arthritis, osteoporosis, DM, HLD, colitis who presents to the ED with nausea, vomiting and cough that has been ongoing for 1 month but worse today. Patient was discharged from [facility] recently. Patient complains of dry cough. Patient states experiencing post-tussive vomiting and pleuritic pain with cough. Denies fever or chills. Denies any other symptoms. - Physicial Exam PE: 08/12/18 22:06 GENERAL: Well developed, well nourished. Awake and alert. No acute distress. HEENT: + Dry mucous membranes. Normocephalic, atraumatic. PERRLA, EOMI. No conjunctival pallor. Sclera are non-icteric. Oropharynx is clear. NECK: Supple. Full ROM. No JVD. Carotid pulses 2+ and symmetric, without bruits. No thyromegaly. No lymphadenopathy. CARDIOVASCULAR: + Tachycardic, regular rhythm. No murmurs, rubs, or gallops. Distal pulses are 2+ and symmetric. . PULMONARY: No evidence of respiratory distress. Lungs clear to auscultation bilaterally. No wheezing, rales or rhonchi. ABDOMINAL: Soft. Non-tender. Non-distended. No rebound or guarding. No organomegaly. Normoactive bowel sounds. MUSCULOSKELETAL Normal range of motion at all joints. No bony deformities or tenderness. No CVA tenderness. EXTREMITIES: No cyanosis. No clubbing. No edema. No calf tenderness. SKIN: Warm and dry. Normal capillary refill. No rashes. No jaundice. NEUROLOGICAL: Alert, awake, appropriate. Cranial nerves 2-12 intact. No deficits to light touch and temperature in face, upper extremities and lower extremities. No motor deficits in the in face, upper extremities and lower extremities. Normoreflexic in the upper and lower extremities. Normal speech. Toes are down- going bilaterally. Gait is normal without ataxia. PSYCHIATRIC: Cooperative. Good eye contact. Appropriate mood and affect. <Nabila Massey - Last Filed: 08/12/18 22:06> - Resident Resident Name: Nilda Sood - ED Attending Attestation I have performed the following: I have examined & evaluated the patient, The case was reviewed & discussed with the resident, I agree w/resident's findings & plan, Exceptions are as noted - Medical Decision Making 08/12/18 22:47 no urinary infection. normal cbc hyponatremia and she received IVF saline - her symptoms improved with robitussin and one bronchodilator -influenza swab was negative <Candelaria Collins - Last Filed: 08/12/18 22:48> Attestations - Attestations 08/12/18 22:06 Documentation prepared by Nabila Massey, acting as medical office clerk for Candelaria Collins MD <Nabila Massey - Last Filed: 08/12/18 22:06>
[2018-08-12] MEDS ORDERED: DEXAMETHASONE SOD PHOSPHATE 10 MG/1 ML VIAL IVPUSH ONE (22:52)
[2018-08-12 23:04] LABS: URINE APPEARANCE CLEAR; URINE BILIRUBIN NEGATIVE (<2.0 mg/dL); URINE COLOR STRAW; URINE GLUCOSE (UA) NEGATIVE (NEGATIVE); URINE KETONE NEGATIVE (NEGATIVE); URINE LEUK ESTERASE NEGATIVE (NEGATIVE); URINE NITRITE NEGATIVE (NEGATIVE); URINE PROTEIN NEGATIVE (NEGATIVE); URINE UROBILINOGEN NEGATIVE mg/dL (0.2-1.0)
[2018-08-12] MEDS ORDERED: DEXAMETHASONE SOD PHOSPHATE 10 MG/1 ML VIAL ONE (23:04)
[2018-08-13 00:46] VITALS: BP 145/70; PULSE 78
--- NOTE | 2018-08-13 09:51 | EKG ---
Test Reason : Blood Pressure : / mmHG Vent. Rate : 075 BPM Atrial Rate : 075 BPM P-R Int : 150 ms QRS Dur : 082 ms QT Int : 392 ms P-R-T Axes : 066 -22 027 degrees QTc Int : 437 ms NORMAL SINUS RHYTHM NORMAL ECG WHEN COMPARED WITH ECG OF 23-JUL-2018 15:00, PREMATURE ATRIAL COMPLEXES ARE NO LONGER PRESENT Confirmed by LALA EDEN MD ([id number]) on 08/13/2018 9:50:59 AM Referred By: Confirmed By:LALA EDEN MD
== END 2018-08-13 00:47 | disposition home or self-care (01) ==
LOC: JER 19:58
PROC: 3E0337Z Introduction of Electrolytic and Water Balance Substance into Peripheral Vein, Percutaneous Approach (ICD-10-PCS; principal; 2018-08-12)
PROC: 3E0F7GC Introduction of Other Therapeutic Substance into Respiratory Tract, Via Natural or Artificial Opening (ICD-10-PCS; 2018-08-12)
PROC: 3E0F7GC Introduction of Other Therapeutic Substance into Respiratory Tract, Via Natural or Artificial Opening (ICD-10-PCS; 2018-08-12)
PROC: 3E033GC Introduction of Other Therapeutic Substance into Peripheral Vein, Percutaneous Approach (ICD-10-PCS; 2018-08-12)
PROC: 3E033GC Introduction of Other Therapeutic Substance into Peripheral Vein, Percutaneous Approach (ICD-10-PCS; 2018-08-12)
PROC: 3E0333Z Introduction of Anti-inflammatory into Peripheral Vein, Percutaneous Approach (ICD-10-PCS; 2018-08-12)
DX: R05 Cough (principal); E87.1 Hypo-osmolality and hyponatremia
CPT/HCPCS: 36415; 71045-TC-FY; 80053; 81003; 84484; 85025; 87086; 87804; 93005; 93010; 99281-25; J1100; J7030

== ENCOUNTER 2019-04-09 17:36 | Inpatient (IN) | payer MEDICARE, OTHER ==
[2019-04-09] MEDS ORDERED: LIDOCAINE 5% TOPICAL PATCH ONE (19:09)
[2019-04-09] MEDS ORDERED: ACETAMINOPHEN 1000 MG/100 ML VIAL (NON FORMULARY) IVPB ONE (20:01)
[2019-04-09] MEDS ORDERED: METOCLOPRAMIDE HCL INJECTION 10 MG/2 ML VIAL IVPUSH ONE (20:01)
[2019-04-09 20:07] LABS: BASO % 0.7 % (0-2.0); EOS % 3.6 % (0-4.5); HEMATOCRIT 31.5 % (32.4-45.2); HEMOGLOBIN 10.3 GM/dL (10.7-15.3); LYMPH % 27.1 % (8-40); MCH 27.4 pg (25.7-33.7); MCHC 32.7 g/dl (32.0-36.0); MEAN CELL VOLUME 83.8 fl (80-96); MEAN PLT VOLUME 7.5 fl (7.5-11.1); MONO % 7.3 % (3.8-10.2); NEUT % 61.3 % (42.8-82.8); PLATELET COUNT 288 K/MM3 (134-434); RBC 3.76 M/mm3 (3.60-5.2); RDW 14.2 % (11.6-15.6); WHITE BLOOD COUNT 6.7 K/mm3 (4.0-10.0)
--- NOTE | 2019-04-09 20:10 | PDOC ---
Attending Attestation - Resident Resident Name: Adolfo Vigil - ED Attending Attestation I have performed the following: I have examined & evaluated the patient, The case was reviewed & discussed with the resident, I agree w/resident's findings & plan - HPI HPI: 04/09/19 23:31 see resident hpi - Physicial Exam PE: 04/09/19 23:32 agree with resident exam - Medical Decision Making 04/09/19 23:32 73 yo female with HOBBS and hyponatrmia CT scan of the brain shows no acute abnormalities Patient has been hyponatremic multiple times in the past She is currently asymptomatic on reevaluation at 11:30 PM She'll be admitted to medical service for sodium correction Case discussed with hospitalist team
--- NOTE | 2019-04-09 20:12 | PDOC ---
History of Present Illness - General Chief Complaint: Headache Stated Complaint: NAUSEA & VOMITING Time Seen by Provider: 04/09/19 17:49 - History of Present Illness Initial Comments: 04/09/19 20:06 73y/o F hx of DM,HTN, HLD, arthritis, gastritis and colitis, presents to the ED with 2 weeks of headache. Pain is gradual in onset and up till today lasted for approximately 3 hours per episode. Today's episode has been going on since last night and has not been relieved by 650 mg of tylenol she took this morning. Pain is throbbing in nature, across her forehead and radiates to the back of her head. severity 02/16.These symptoms were preceded by numbness in her left arm and tingling on head and temples and dizziness. She has been treated so far with meclizine and banophen, which have not relieved any of her symptoms. She reports sensitivity to light and noise. She denies nausea, fever, chills, chest pain 04/09/19 21:37 04/09/19 21:46 Past History - Past Medical History Allergies/Adverse Reactions: Allergies Allergy/AdvReac Type Severity Reaction Status Date / Time ketorolac [From Toradol] Allergy Intermediate Verified 04/09/19 17:50 codeine Allergy Verified 04/09/19 17:50 cortisone Allergy Verified 04/09/19 17:50 fentanyl Allergy Verified 04/09/19 17:50 hydrocodone Allergy Verified 04/09/19 17:50 morphine Allergy Verified 04/09/19 17:50 oxycodone Allergy Verified 04/09/19 17:50 penicillin V Allergy Verified 04/09/19 17:50 tramadol Allergy Verified 04/09/19 17:50 Home Medications: Ambulatory Orders Losartan Potassium [Cozaar -] 25 mg PO DAILY #30 tablet MDD 1 07/19/18 Metoclopramide HCl [Reglan -] 5 mg PO TIDAC #30 tablet MDD 3 07/19/18 Acetaminophen 650 mg PO PRN PRN 04/09/19 Meclizine HCl 12.5 mg PO DAILY 04/09/19 Metformin HCl [Glucophage] 1,000 mg PO BID 04/09/19 Omeprazole 40 mg PO BID 04/09/19 Pregabalin [Lyrica -] 75 mg PO HS 04/09/19 Anemia: No Asthma: No Cancer: No Cardiac Disorders: Yes (PM 02/02/2019) CVA: No COPD: No CHF: No Dementia: No Diabetes: Yes GI Disorders: Yes (gastritis,colitis) Disorders: No HTN: Yes Hypercholesterolemia: Yes Liver Disease: No Seizures: No Thyroid Disease: No - Surgical History Abdominal Surgery: No Appendectomy: Yes Cardiac Surgery: No Cholecystectomy: Yes Lung Surgery: No Neurologic Surgery: No Orthopedic Surgery: Yes (Knee) - Immunization History Td Vaccination: Yes TDAP Vaccination: Yes Immunization Up to Date: No - Psycho Social/Smoking Cessation Hx Smoking History: Unknown if ever smoked Have you smoked in the past 12 months: No Information on smoking cessation initiated: No Hx Alcohol Use: No Drug/Substance Use Hx: No Substance Use Type: None Review of Systems - Review of Systems Constitutional: No: Chills, Fever HEENTM: No: Eye Pain, Blurred Vision Respiratory: No: Cough, Shortness of Breath Cardiac (ROS): No: Chest Pain ABD/GI: Yes: Nausea, Vomiting. No: Abdominal Distended : No: Burning, Dysuria Musculoskeletal: No: Back Pain Neurological: Yes: Symptoms reported *Physical Exam - Vital Signs Last Vital Signs Temp Pulse Resp BP Pulse Ox 98.8 F 92 H 16 130/58 L 100 04/09/19 17:50 04/09/19 17:50 04/09/19 17:50 04/09/19 17:50 04/09/19 17:50 - Physical Exam Comments: 04/09/19 20:58 PE: GENERAL: Awake, alert, and fully oriented, visible distress HEAD: No signs of trauma, normocephalic, atraumatic EYES: EOMI, sclera anicteric, conjunctiva clear ENT: Auricles normal inspection, hearing grossly normal, nares patent, oropharynx clear without exudates. Moist mucosa NECK: Normal ROM, supple, no lymphadenopathy, JVD, or masses. no tenderness of C -spine LUNGS: No distress, speaks full sentences, clear to auscultation bilaterally HEART: Regular rate and rhythm, normal S1 and S2, no murmurs, rubs or gallops, peripheral pulses normal and equal bilaterally. ABDOMEN: Soft, nontender, normoactive bowel sounds. No guarding, no rebound. No masses EXTREMITIES : Normal inspection, Normal range of motion, no edema. No clubbing or cyanosis NEUROLOGICAL: Cranial nerves II through XII grossly intact. Normal speech, no focal sensorimotor deficits SKIN: Warm, Dry, normal turgor, no rashes or lesions noted ED Treatment Course - LABORATORY CBC & Chemistry Diagram: 04/09/19 19:50 04/09/19 19:50 - RADIOLOGY Radiology Studies Ordered: Category Date Time Status HEAD CT WITHOUT CONTRAST [CT] Stat CT Scan 04/09/19 20:01 Ordered Medical Decision Making - Medical Decision Making 04/09/19 21:02 73y/o F hx of HTn, HLD, arthritis, gastritis and colitis, presents to the ED with 2 weeks of headache with associated numbness down her left arm and tingling sensation on scalp. cbc, cmp,ekg, ct head without contrast EKG: sinus rhythm with 2nd degree AV block. ekg report from 08/13/18 was reported as normal sinus rhythm, normal EKG 04/09/19 21:33 Meds: IV Tylenol 1g, Reglan 10 mg. pain severity at time of administration 8/10 Labs remarkable for hyponatremia at 126. Admitting team microblogged for admisssion Pt currently in CT Current pain level 5/10 Has had previous admission for hyponatremia 2018. 04/09/19 21:45 04/09/19 21:[address] no acute intracranial pathology, no subarachnoid hemorrhage, no obvious mass lesion 04/09/19 22:05 Discharge - Follow up/Referral Referrals: Yasmany Dennis [Primary Care Provider] - - Patient Discharge Instructions - Post Discharge Activity
[2019-04-09] MEDS ORDERED: METOCLOPRAMIDE HCL INJECTION 10 MG/2 ML VIAL IVPB ONE (20:14)
[2019-04-09 20:36] LABS: ALBUMIN 4.2 g/dl (3.4-5.0); BILIRUBIN,TOTAL 0.3 mg/dL (0.2-1); BLOOD UREA NITROGEN 14.3 mg/dL (7-18); CREATININE 0.8 mg/dL (0.55-1.3); POTASSIUM 4.5 mmol/L (3.5-5.1); TOT PROT 7.4 g/dl (6.4-8.2)
[2019-04-09] MEDS ORDERED: METOCLOPRAMIDE HCL INJECTION 10 MG/2 ML VIAL ONE (20:48)
[2019-04-09] MEDS ORDERED: ACETAMINOPHEN INJECTION 100 ML IVPB ONE (20:48)
--- NOTE | 2019-04-09 22:20 | HP ---
Admitting History and Physical - Primary Care Physician PCP: Yasmany Dennis - Admission Chief Complaint: Headache, Numbness to Left Arm History of Present Illness: This is a 73 y/o woman with a PMHx of DM, HTN, HLD, Arthritis, Gastritis, Colitis. Who presents to the ED with a headache x 2 weeks. Patient is Turkish speaking [employer] used #[id number]. Patient reports that the pain is gradual in onset and up till today lasting for approximately 3 hours per episode. Today's episode has been going on since last night and has not been relieved by 650 mg of Tylenol,that she took this morning. She reports that the pain is throbbing in nature, across her forehead and radiates to the back of her head, severity 8/ 10. These symptoms were preceded by numbness in her left arm and tingling on head and temples and dizziness. She has been treated so far with meclizine and banophen, which have not relieved any of her symptoms. She reports sensitivity to light and noise. Patient reports being seen by ENT and had an appointment coming up with Neurology, but due to the increased pain she decided to come in to be evaluated. She denies slurred speech, facial droop, generalized weakness. She denies nausea, fever, chills, chest pain. History Source: Patient Limitations to Obtaining History: Language Barrier (Turkish) - Past Medical History Cardiovascular: Yes: HTN, Hyperlipdemia Gastrointestinal: Yes: Gastritis - Past Surgical History Past Surgical History: Yes: Appendectomy - Smoking History Smoking history: Unknown if ever smoked Have you smoked in the past 12 months: No - Alcohol/Substance Use Hx Alcohol Use: No History of Substance Use: reports: None - Social History Usual Living Arrangement: Yes: Alone Do you think of yourself as: Straight/Heterosexual ADL: Support Services ([employer]) History of Recent Travel: No Home Medications - Allergies Allergies/Adverse Reactions: Allergies Allergy/AdvReac Type Severity Reaction Status Date / Time ketorolac [From Toradol] Allergy Intermediate Verified 04/09/19 17:50 codeine Allergy Verified 04/09/19 17:50 cortisone Allergy Verified 04/09/19 17:50 fentanyl Allergy Verified 04/09/19 17:50 hydrocodone Allergy Verified 04/09/19 17:50 morphine Allergy Verified 04/09/19 17:50 oxycodone Allergy Verified 04/09/19 17:50 penicillin V Allergy Verified 04/09/19 17:50 tramadol Allergy Verified 04/09/19 17:50 - Home Medications Home Medications: Ambulatory Orders Losartan Potassium [Cozaar -] 25 mg PO DAILY #30 tablet MDD 1 07/19/18 Metoclopramide HCl [Reglan -] 5 mg PO TIDAC #30 tablet MDD 3 07/19/18 Acetaminophen 650 mg PO PRN PRN 04/09/19 Meclizine HCl 12.5 mg PO DAILY 04/09/19 Metformin HCl [Glucophage] 1,000 mg PO BIDAC 04/09/19 Omeprazole 40 mg PO BID 04/09/19 Pregabalin [Lyrica -] 75 mg PO HS 04/09/19 Albuterol Sulfate Inhaler - [Ventolin Hfa Inhaler -] 1 puff IH Q6H PRN 04/10/19 Aspirin 81 mg PO DAILY 04/10/19 Clopidogrel Bisulfate [Plavix] 75 mg PO DAILY 04/10/19 Lipase/Protease/Amylase [[place] Dr 36,000 Units Capsule] 1 each PO TIDCM Tamsulosin HCl [Flomax] 0.4 mg PO DAILY@1000 04/10/19 Family Medical History Family History: Unable to Obtain Review of Systems - Review of Systems Constitutional: reports: No Symptoms Eyes: reports: Photophobia HENT: reports: No Symptoms Neck: reports: No Symptoms Cardiovascular: reports: No Symptoms Respiratory: reports: No Symptoms Gastrointestinal: reports: No Symptoms Genitourinary: reports: No Symptoms Breasts: reports: No Symptoms Reported Musculoskeletal: reports: No Symptoms Integumentary: reports: No Symptoms Neurological: reports: Headache, Numbness. denies: Change in Speech, Dizziness , Weakness Endocrine: reports: No Symptoms Hematology/Lymphatic: reports: No Symptoms Psychiatric: reports: No Symptoms Pain Intensity: 7 Physical Examination Vital Signs: Vital Signs Temperature 98.8 F 04/09/19 17:50 Pulse Rate 92 H 04/09/19 17:50 Respiratory Rate 16 04/09/19 17:50 Blood Pressure 130/58 L 04/09/19 17:50 O2 Sat by Pulse Oximetry (%) 100 04/09/19 17:50 Constitutional: Yes: Well Nourished, No Distress, Calm Eyes: Yes: WNL, Conjunctiva Clear, EOM Intact, PERRL HENT: Yes: WNL, Atraumatic, Normocephalic Neck: Yes: WNL, Supple, Trachea Midline Cardiovascular: Yes: WNL, Regular Rate and Rhythm, S1, S2 Respiratory: Yes: WNL, Regular, CTA Bilaterally Gastrointestinal: Yes: WNL, Normal Bowel Sounds, Soft ...Rectal Exam: Yes: Deferred Renal/: Yes: WNL Breast(s): Yes: WNL Musculoskeletal: Yes: WNL Extremities: Yes: WNL Edema: No Peripheral Pulses WNL: Yes Integumentary: Yes: WNL Neurological: Yes: WNL, Alert, Oriented, Cran Nerves II-XII Intact, Numbness. No: Dysarthria, Facial Droop, Weakness ...Motor Strength: WNL Psychiatric: Yes: WNL, Alert, Oriented Labs: CBC, BMP 04/09/19 19:50 04/09/19 19:50 Laboratory Results - last 24 hr 04/09/19 04/09/19 04/09/19 19:50 19:50 23:03 WBC 6.7 RBC 3.76 Hgb 10.3 L Hct 31.5 L MCV 83.8 MCH 27.4 MCHC 32.7 RDW 14.2 D Plt Count 288 MPV 7.5 Absolute Neuts (auto) 4.1 Neutrophils % 61.3 D Lymphocytes % 27.1 D Monocytes % 7.3 Eosinophils % 3.6 Basophils % 0.7 Nucleated RBC % 0 Sodium 126 L Potassium 4.5 Chloride 92 L Carbon Dioxide 27 Anion Gap 8 BUN 14.3 Creatinine 0.8 Est GFR (CKD-EPI)AfAm 84.77 Est GFR (CKD-EPI)NonAf 73.14 POC Glucometer 103 Random Glucose 123 H Calcium 9.0 Total Bilirubin 0.3 AST 24 ALT 22 Alkaline Phosphatase 128 H Total Protein 7.4 Albumin 4.2 04/10/19 06:39 WBC RBC Hgb Hct MCV MCH MCHC RDW Plt Count MPV Absolute Neuts (auto) Neutrophils % Lymphocytes % Monocytes % Eosinophils % Basophils % Nucleated RBC % Sodium Potassium Chloride Carbon Dioxide Anion Gap BUN Creatinine Est GFR (CKD-EPI)AfAm Est GFR (CKD-EPI)NonAf POC Glucometer 109 Random Glucose Calcium Total Bilirubin AST ALT Alkaline Phosphatase Total Protein Albumin Intake & Output 0904/08/19 04/09/19 04/10/19 23:59 23:59 23:59 23:59 Intake Total 300 Balance 300 Weight 69.4 kg Current Medications Generic Name Dose Route Start Last Admin Trade Name Freq PRN Reason Stop Dose Admin Acetaminophen 650 mg 04/10/19 02:00 04/10/19 06:45 Tylenol - PO 650 mg Q6H PRN Administration PAIN LEVEL 6-10 Sodium Chloride 1,000 mls @ 60 mls/hr 04/09/19 22:30 04/09/19 22:43 Normal Saline - IV 60 mls/hr ASDIR TOAN Administration Losartan Potassium 25 mg 04/10/19 10:00 Cozaar - PO DAILY TOAN Melatonin 5 mg 04/10/19 00:50 04/10/19 03:31 Melatonin PO 5 mg HS PRN Administration INSOMNIA Metformin HCl 1,000 mg 04/10/19 07:00 04/10/19 06:45 Glucophage - PO 1,000 mg BIDAC TOAN Administration Metoclopramide HCl 10 mg 04/10/19 04:00 Reglan Injection - IVPUSH Q8H PRN HEADACHE Pantoprazole Sodium 40 mg 04/10/19 10:00 Protonix - PO BID TOAN Pregabalin 75 mg 04/10/19 22:00 Lyrica - PO HS TOAN Imaging - Results Chest X-ray: Report Reviewed, Image Reviewed Cat Scan: Report Reviewed, Image Reviewed EKG: Image Reviewed Problem List - Problems (1) Headache Code(s): R51 - HEADACHE (2) Hyponatremia Code(s): E87.1 - HYPO-OSMOLALITY AND HYPONATREMIA (3) Diabetes Assessment/Plan: stable BGMs ISS Code(s): E11.9 - TYPE 2 DIABETES MELLITUS WITHOUT COMPLICATIONS Qualifiers: Diabetes mellitus type: type 2 (4) GERD (gastroesophageal reflux disease) Assessment/Plan: Continue PPI Code(s): K21.9 - GASTRO-ESOPHAGEAL REFLUX DISEASE WITHOUT ESOPHAGITIS Assessment/Plan This is a 73 y/o woman admitted for Headache and Hyponatremia for further evaluation of their emergent condition. Plan: Headache: Head CT- no ICH, no mass Appreciate Neurology consult Neuro checks Continue Reglan Zofran prn Monitor CBC, BMP Monitor vitals Hyponatremia: Likely due to hypovalemia vs SIADH Appreciate Nephrology consult Urine Osmo, Urine lytes, Serum Osmo Will start gentle IVF Goal 6-8meq/24 hr Na Deficit 445 Monitor BMP Neuro checks FEN: NS@60ml/hr Replete lytes prn Low Na Diet DVT ppx OOB SCDs Heparin SQ Dispo: Requires Inpatient Care Visit type - Emergency Visit Emergency Visit: Yes ED Registration Date: 04/09/19 Care time: The patient presented to the Emergency Department on the above date and was hospitalized for further evaluation of their emergent condition. - New Patient This patient is new to me today: Yes Date on this admission: 04/09/19 - Critical Care Critical Care patient: No
[2019-04-09] MEDS: SODIUM CHLORIDE 1,000 ML IV SCH (22:43)
[2019-04-10 01:51] VITALS: BMI 28.0
[2019-04-10] MEDS: MELATONIN 5 MG TABLETS PO PRN ×2 (03:31→23:21)
[2019-04-10] MEDS ORDERED: METOCLOPRAMIDE HCL INJECTION 10 MG/2 ML VIAL IVPUSH PRN (04:00)
[2019-04-10] MEDS: metFORMIN HCL 500 MG TABLET (FP) PO SCH ×2 (06:45→17:34)
[2019-04-10] MEDS: ACETAMINOPHEN 325 MG TABLET (FP) PO PRN ×2 (06:45→15:55)
[2019-04-10] MEDS: PANTOPRAZOLE 40 MG TABLET (FP) PO SCH ×2 (09:29→21:25)
[2019-04-10] MEDS: LOSARTAN POTASSIUM 25 MG TABLET PO SCH ×2 (09:29→15:55)
[2019-04-10 09:53] LABS: URIC ACID 4.1 mg/dL (2.6-7.2)
--- NOTE | 2019-04-10 10:14 | CONSULT ---
Consult - text type - Consultation Consultation Note: NEUROLOGY CONSULT GREATLY APPRECIATED: Events reviewed and discussed with RN and AMY Albrecht. Ms. Neff discussed with Dr. Jacobo. This 73 yo RH Indian-Speaking woman (4 adult children)on disability after knee surgery. Ambulates with cane. Has [employer] 5 hours daily. PMHX: DM x 18 years, HTN, CAD s/p PPM, Gastritis, Colitis, S/P L TKR and plating for "arthritis," chronic insomnia, and depression. On: losartan, metoclopramide, acetaminophen, meclizine, metformin, omeprazole, pregabalin 75 mg HS (for nocturnal pains in legs and feet). Here after 3 months of progressive bitemporal headache now holocranial daily headaches. + Photophonia, phonophobia, N/V, kinesiophobia. Had pain management and was told it might be related to "arthritis in her neck. " Also saw ENT (Dr. Conroy) who told her "everything ok" and referred to our office. Found no relief with increasing amounts of tylenol and meclizine but came to the ER as "pain was too severe." Review of systems sig for chronic insomnia due to cramps and "electricity" in the legs that awaken her from sleep for "many years" attributed to diabetes. She also describes 5 falls within the past year, with increasing difficulty with balance. These falls usually occur in evening hours. She also notes ongoing depressive symptoms. Head CT (reviewed): Normal study. EKG sinus rhythm with 2nd degree AV block WBC= 6.7 MCV= 83.8 Na= 126 mg% (chronic per hospitalizations 126-134 mg%) VIRGINIE: BP 126/80. p 45.Cor reg. No bruit. Neg Kernig's. Neg SLR. S/P L TKR. PPM in L chest. Mild TMJ tenderness on R. NEURO: Awake, alert, oriented x 3. Speach fluent in Indian CNII-CNXII: EOM's full without nystagmus. Full raphael. No facial. Motor: No drift or tremor. No cogwheeling. Strength normal. Sl reduced VICENTE's L > R. Reflexes normal in arms, reduced KJ's,absent AJ's. Toes downgoing. Coordination: No FTN dystaxia. Sensation: Reduced vibration to ankles. Romberg +/- Gait: Unsteady, variable. Can walk on heels, toes. Impression: "New onset" Headache with features Migraine. Now chronic daily headache syndrome (CDHS) due to analgesic overuse/withdrawal. 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 Orthostatic BP's D/C Reglan as dopaminergic effects and may worsen nocturnal pains ( May be RLS). Change to Zofran. D/C Meclizine. D/C Tylenol Start Depakote ER 250 q HS x 3 days then 500 mg qHS Appreciate cardiology consult and possible re-interrogation of PPM. PT dorita for gait safety with walker Thank you very much, Bert Newton MD
--- NOTE | 2019-04-10 11:09 | PN ---
Progress Note, Physician Chief Complaint: awake alert events reviewed in bed comfortable - Current Medication List Current Medications: Active Medications Acetaminophen (Tylenol -) 650 mg PO Q6H PRN PRN Reason: PAIN LEVEL 6-10 Last Admin: 04/10/19 06:45 Dose: 650 mg Sodium Chloride (Normal Saline -) 1,000 mls @ 60 mls/hr IV ASDIR [facility] Last Admin: 04/09/19 22:43 Dose: 60 mls/hr Losartan Potassium (Cozaar -) 25 mg PO DAILY [facility] Last Admin: 04/10/19 09:29 Dose: Not Given Melatonin (Melatonin) 5 mg PO HS PRN PRN Reason: INSOMNIA Last Admin: 04/10/19 03:31 Dose: 5 mg Metformin HCl (Glucophage -) 1,000 mg PO BIDAC [facility] Last Admin: 04/10/19 06:45 Dose: 1,000 mg Metoclopramide HCl (Reglan Injection -) 10 mg IVPUSH Q8H PRN PRN Reason: HEADACHE Pantoprazole Sodium (Protonix -) 40 mg PO BID [facility] Last Admin: 04/10/19 09:29 Dose: 40 mg Pregabalin (Lyrica -) 75 mg PO HS [facility] - Objective Vital Signs: Vital Signs Temperature 97.7 F 04/10/19 06:00 Pulse Rate 45 L 04/10/19 06:00 Respiratory Rate 20 04/10/19 06:00 Blood Pressure 126/53 L 04/10/19 06:00 O2 Sat by Pulse Oximetry (%) 97 04/09/19 23:13 Constitutional: Yes: No Distress Cardiovascular: Yes: Regular Rate and Rhythm Respiratory: Yes: WNL Gastrointestinal: Yes: WNL Genitourinary: Yes: WNL Musculoskeletal: Yes: WNL Extremities: Yes: WNL Edema: No Peripheral Pulses WNL: Yes Integumentary: Yes: WNL Wound/Incision: Yes: Clean/Dry Neurological: Yes: Pre-Existing Deficit, Unsteady Gait ...Motor Strength: LLE, RLE Psychiatric: Yes: WNL Labs: CBC, BMP 04/09/19 19:50 04/09/19 19:50 Problem List - Problems (1) Unsteady gait Code(s): R26.81 - UNSTEADINESS ON FEET (2) Headache Code(s): R51 - HEADACHE (3) Anemia Code(s): D64.9 - ANEMIA, UNSPECIFIED (4) Diabetes Code(s): E11.9 - TYPE 2 DIABETES MELLITUS WITHOUT COMPLICATIONS Qualifiers: Diabetes mellitus type: type 2 (5) Hyponatremia Code(s): E87.1 - HYPO-OSMOLALITY AND HYPONATREMIA Assessment/Plan PT and Neurology workup fall risks hyponatremia with nephrology eval oob to chair check orthostatics bp dc planning tomorrow
--- NOTE | 2019-04-10 11:34 | EKG ---
Test Reason : Blood Pressure : / mmHG Vent. Rate : 064 BPM Atrial Rate : 096 BPM P-R Int : 000 ms QRS Dur : 088 ms QT Int : 398 ms P-R-T Axes : 056 -25 043 degrees QTc Int : 410 ms SINUS RHYTHM WITH 2ND DEGREE A-V BLOCK (MOBITZ I) ABNORMAL ECG WHEN COMPARED WITH ECG OF 12-AUG-2018 22:28, SINUS RHYTHM IS NOW WITH 2ND DEGREE A-V BLOCK (MOBITZ I) Confirmed by ANNMARIE RUBIO, EDITA ([id number]) on 04/10/2019 11:33:54 AM Referred By: Confirmed By:EDITA ANGUIANO MD
--- NOTE | 2019-04-10 13:29 | CONSULT ---
Consult - text type - Consultation Consultation Note: Renal consult for hyponatremia This is a 73 year old woman with hitory of DM, hypertension, hyperlipidemia, arthritis, gastritis, colitis, hyponatremia presented with headache and gait disturbances and noted to have hyponatremia. Home Medications Medication Instructions Recorded Losartan Potassium [Cozaar -] 25 mg PO DAILY #30 tablet MDD 1 07/19/18 Metoclopramide HCl [Reglan -] 5 mg PO TIDAC #30 tablet MDD 3 07/19/18 Acetaminophen 650 mg PO PRN PRN 04/09/19 Meclizine HCl 12.5 mg PO DAILY 04/09/19 Metformin HCl [Glucophage] 1,000 mg PO BIDAC 04/09/19 Omeprazole 40 mg PO BID 04/09/19 Pregabalin [Lyrica -] 75 mg PO HS 04/09/19 Albuterol Sulfate Inhaler - 1 puff IH Q6H PRN 04/10/19 [Ventolin Hfa Inhaler -] Aspirin 81 mg PO DAILY 04/10/19 Clopidogrel Bisulfate [Plavix] 75 mg PO DAILY 04/10/19 Lipase/Protease/Amylase [Creon Dr 1 each PO TIDCM 04/10/19 36,000 Units Capsule] Tamsulosin HCl [Flomax] 0.4 mg PO DAILY@1000 04/10/19 Vital Signs Temperature 98.2 F 04/10/19 10:00 Pulse Rate 78 04/10/19 10:00 Respiratory Rate 20 04/10/19 10:00 Blood Pressure 144/59 L 04/10/19 10:00 O2 Sat by Pulse Oximetry (%) 98 04/10/19 09:00 Intake & Output 04/07/19 04/08/19 04/09/19 04/10/19 23:59 23:59 23:59 23:59 Intake Total 300 300 Balance 300 300 Weight 69.4 kg NAD awake and alert neck supple RRR CTA soft NT/ND no LE edema CBC, BMP 04/09/19 19:50 04/09/19 19:50 Current Medications Acetaminophen (Tylenol -) 650 mg PO Q6H PRN PRN Reason: PAIN LEVEL 6-10 Last Admin: 04/10/19 06:45 Dose: 650 mg Sodium Chloride (Normal Saline -) 1,000 mls @ 60 mls/hr IV ASDIR TOAN Last Admin: 04/09/19 22:43 Dose: 60 mls/hr Losartan Potassium (Cozaar -) 25 mg PO DAILY [facility] Last Admin: 04/10/19 09:29 Dose: Not Given Melatonin (Melatonin) 5 mg PO HS PRN PRN Reason: INSOMNIA Last Admin: 04/10/19 03:31 Dose: 5 mg Metformin HCl (Glucophage -) 1,000 mg PO BIDAC [facility] Last Admin: 04/10/19 06:45 Dose: 1,000 mg Metoclopramide HCl (Reglan Injection -) 10 mg IVPUSH Q8H PRN PRN Reason: HEADACHE Pantoprazole Sodium (Protonix -) 40 mg PO BID [facility] Last Admin: 04/10/19 09:29 Dose: 40 mg Pregabalin (Lyrica -) 75 mg PO HS [facility] 73 year old woman with hitory of DM, hypertension, hyperlipidemia, arthritis, gastritis, colitis, hyponatremia presented with headache and gait disturbances and noted to have hyponatremia. 1. Euvolemic hyponatremia 2. Headaches 3. Hypertension 4. DM type 2 5. Anemia Check urine studies for Urine Na, Urine OSM Check serum OSM, TSH and AM cortisol Fluid restriction of 1L TRend Na Q24h no acute indication for 3% saline Thank you Garfield Alonso DO
[2019-04-10 14:38] LABS: CALCIUM 8.8 mg/dL (8.5-10.1); CREATININE 0.7 mg/dL (0.55-1.3); POTASSIUM 4.7 mmol/L (3.5-5.1)
[2019-04-10] MEDS ORDERED: ALBUTEROL SO4 8 GM HFA INHALER IH PRN (17:51)
[2019-04-10] MEDS ORDERED: CLOPIDOGREL BISULFATE 75 MG TABLET (FP) PO ONE (19:45)
[2019-04-10] MEDS ORDERED: ASPIRIN 81 MG CHEWABLE TABLETS PO ONE (19:45)
[2019-04-10] MEDS: PREGABALIN 75 MG CAPSULE PO SCH (21:25)
[2019-04-10] MEDS: DIVALPROEX NA *ER* EXTEND REL 250 MG TABLET.SA PO SCH (21:25)
[2019-04-10] MEDS ORDERED: PT OWN MED DRAWER 7, Y5N ONE (22:42)
[2019-04-11] MEDS ORDERED: PT OWN MED DRAWER 7, Y5N ONE ×3 (06:02→17:08)
[2019-04-11] MEDS: metFORMIN HCL 500 MG TABLET (FP) PO SCH ×2 (06:12→17:09)
[2019-04-11] MEDS: SODIUM CHLORIDE 1,000 ML IV SCH ×2 (06:12→09:33)
[2019-04-11 07:36] LABS: IRON SERUM 34 ug/dL (50-175); TOTAL IRON BINDING CAPACITY 378 ug/dL (250-450)
[2019-04-11] MEDS: PANTOPRAZOLE 40 MG TABLET (FP) PO SCH ×2 (09:30→21:36)
[2019-04-11] MEDS: TAMSULOSIN HCL 0.4 MG CAP PO SCH (09:31)
[2019-04-11] MEDS: ASPIRIN 81 MG CHEWABLE TABLETS PO SCH (09:31)
[2019-04-11] MEDS: LOSARTAN POTASSIUM 25 MG TABLET PO SCH (09:32)
[2019-04-11] MEDS: CLOPIDOGREL BISULFATE 75 MG TABLET (FP) PO SCH (09:32)
[2019-04-11] MEDS: LIPASE/PROTEASE/AMYLASE 36,000 UNIT CAPSULE PO SCH ×3 (09:33→17:09)
--- NOTE | 2019-04-11 10:00 | PN ---
Progress Note, Physician Chief Complaint: Hyponatremia Headache Nausea History of Present Illness: Previous notes and events reviewed awake and alert NAD Na 131 denies headache, chest pain, or SOB no acute events overnight - Current Medication List Current Medications: Active Medications Albuterol Sulfate (Ventolin Hfa Inhaler -) 1 puff IH Q6H PRN PRN Reason: SHORT OF BREATH/WHEEZING Aspirin (Asa -) 81 mg PO DAILY [facility] Last Admin: 04/11/19 09:31 Dose: 81 mg Clopidogrel Bisulfate (Plavix -) 75 mg PO DAILY [facility] Last Admin: 04/11/19 09:32 Dose: 75 mg Divalproex Sodium (Depakote *Er* -) 250 mg PO HS [facility] Last Admin: 04/10/19 21:25 Dose: 250 mg Sodium Chloride (Normal Saline -) 1,000 mls @ 60 mls/hr IV ASDIR [facility] Last Admin: 04/11/19 09:33 Dose: 60 mls/hr Losartan Potassium (Cozaar -) 25 mg PO DAILY [facility] Last Admin: 04/11/19 09:32 Dose: 25 mg Melatonin (Melatonin) 5 mg PO HS PRN PRN Reason: INSOMNIA Last Admin: 04/10/19 23:21 Dose: 5 mg Metformin HCl (Glucophage -) 1,000 mg PO BIDAC [facility] Last Admin: 04/11/19 06:12 Dose: 1,000 mg Pancrelipase (Creon Dr 36,000 Units Capsule) 1 cap PO TIDCM [facility] Last Admin: 04/11/19 09:33 Dose: 1 cap Pantoprazole Sodium (Protonix -) 40 mg PO BID [facility] Last Admin: 04/11/19 09:30 Dose: 40 mg Pregabalin (Lyrica -) 75 mg PO HS [facility] Last Admin: 04/10/19 21:25 Dose: 75 mg Tamsulosin HCl (Flomax -) 0.4 mg PO DAILY@0830 [facility] Last Admin: 04/11/19 09:31 Dose: 0.4 mg - Objective Vital Signs: Vital Signs Temperature 97.6 F 04/11/19 07:00 Pulse Rate 78 04/11/19 07:00 Respiratory Rate 20 04/11/19 07:00 Blood Pressure 116/47 L 04/11/19 07:00 O2 Sat by Pulse Oximetry (%) 98 04/10/19 21:00 Constitutional: Yes: No Distress, Calm Eyes: Yes: Conjunctiva Clear HENT: Yes: Atraumatic Cardiovascular: Yes: Regular Rate and Rhythm Respiratory: Yes: Regular, CTA Bilaterally Gastrointestinal: Yes: Normal Bowel Sounds, Soft Musculoskeletal: Yes: WNL Extremities: Yes: WNL Edema: No Neurological: Yes: Alert, Oriented Psychiatric: Yes: Alert, Oriented Labs: CBC, BMP 04/09/19 19:50 04/10/19 08:00 Problem List - Problems (1) Headache Assessment/Plan: -Neurology on board -Head CT scan shows no acute intracranial pathology -neuro checks qshift Code(s): R51 - HEADACHE (2) GERD (gastroesophageal reflux disease) Code(s): K21.9 - GASTRO-ESOPHAGEAL REFLUX DISEASE WITHOUT ESOPHAGITIS (3) HTN (hypertension) Assessment/Plan: -Cozaar -low Na diet Code(s): I10 - ESSENTIAL (PRIMARY) HYPERTENSION (4) Hyponatremia Assessment/Plan: -Renal on board -Na 131 -IV hydration -monitor renal function daily Code(s): E87.1 - HYPO-OSMOLALITY AND HYPONATREMIA (5) Nausea & vomiting Assessment/Plan: -Resolved Code(s): R11.2 - NAUSEA WITH VOMITING, UNSPECIFIED Qualifiers: Vomiting type: unspecified Vomiting Intractability: unspecified Qualified Code(s): R11.2 - Nausea with vomiting, unspecified (6) Diabetes Assessment/Plan: -[facility] -Metformin - Code(s): E11.9 - TYPE 2 DIABETES MELLITUS WITHOUT COMPLICATIONS Qualifiers: Diabetes mellitus type: type 2 Assessment/Plan see problem list dvt ppx
[2019-04-11 10:10] LABS: ERYTHROCYTE SEDIMENTATION RATE 11 mm/hr (0-30)
[2019-04-11] MEDS ORDERED: IRON SUCROSE INJECTION 200 MG in SODIUM CHLORIDE 90 ML IVPB ONE (11:00)
[2019-04-11 13:48] LABS: HEMATOCRIT 30.2 % (32.4-45.2); HEMOGLOBIN 10.2 GM/dL (10.7-15.3); MCH 27.9 pg (25.7-33.7); MCHC 33.8 g/dl (32.0-36.0); MEAN CELL VOLUME 82.4 fl (80-96); MEAN PLT VOLUME 7.9 fl (7.5-11.1); PLATELET COUNT 267 K/MM3 (134-434); RBC 3.66 M/mm3 (3.60-5.2); RDW 14.3 % (11.6-15.6)
[2019-04-11 17:24] LABS: ANION GAP 10 MMOL/L (8-16); BLOOD UREA NITROGEN 10.6 mg/dL (7-18); CALCIUM 8.7 mg/dL (8.5-10.1); CHLORIDE 100 mmol/L (98-107); CO2 24 mmol/L (21-32); CREATININE 0.7 mg/dL (0.55-1.3); GLUCOSE,RANDOM 124 mg/dL (74-106); POTASSIUM 4.6 mmol/L (3.5-5.1); SODIUM 133 mmol/L (136-145)
--- NOTE | 2019-04-11 18:22 | PN ---
Progress Note (short form) - Note Progress Note: Renal follow up for hyponatremia Seen and examined at the bedside no acute complaints no HOBBS feels well tolerating oral diet on IVF Vital Signs Temperature 98.5 F 04/11/19 16:57 Pulse Rate 86 04/11/19 16:57 Respiratory Rate 20 04/11/19 16:57 Blood Pressure 141/65 04/11/19 16:57 O2 Sat by Pulse Oximetry (%) 98 04/11/19 09:00 Intake & Output 04/08/19 04/09/19 04/10/19 04/11/19 23:59 23:59 23:59 23:59 Intake Total 300 1860 1470 Balance 300 1860 1470 Weight 69.4 kg NAD Neck supple RRR CTA no LE edema CBC, BMP 04/11/19 06:30 04/11/19 06:30 Current Medications Albuterol Sulfate (Ventolin Hfa Inhaler -) 1 puff IH Q6H PRN PRN Reason: SHORT OF BREATH/WHEEZING Aspirin (Asa -) 81 mg PO DAILY [facility] Last Admin: 04/11/19 09:31 Dose: 81 mg Clopidogrel Bisulfate (Plavix -) 75 mg PO DAILY [facility] Last Admin: 04/11/19 09:32 Dose: 75 mg Divalproex Sodium (Depakote *Er* -) 250 mg PO HS [facility] Last Admin: 04/10/19 21:25 Dose: 250 mg Sodium Chloride (Normal Saline -) 1,000 mls @ 60 mls/hr IV ASDIR [facility] Last Admin: 04/11/19 09:33 Dose: 60 mls/hr Losartan Potassium (Cozaar -) 25 mg PO DAILY [facility] Last Admin: 04/11/19 09:32 Dose: 25 mg Melatonin (Melatonin) 5 mg PO HS PRN PRN Reason: INSOMNIA Last Admin: 04/10/19 23:21 Dose: 5 mg Metformin HCl (Glucophage -) 1,000 mg PO BIDAC [facility] Last Admin: 04/11/19 17:09 Dose: 1,000 mg Pancrelipase (Creon Dr 36,000 Units Capsule) 1 cap PO TIDCM [facility] Last Admin: 04/11/19 17:09 Dose: 1 cap Pantoprazole Sodium (Protonix -) 40 mg PO BID [facility] Last Admin: 04/11/19 09:30 Dose: 40 mg Pregabalin (Lyrica -) 75 mg PO HS [facility] Last Admin: 04/10/19 21:25 Dose: 75 mg Tamsulosin HCl (Flomax -) 0.4 mg PO DAILY@0830 [facility] Last Admin: 04/11/19 09:31 Dose: 0.4 mg 73 year old woman with hitory of DM, hypertension, hyperlipidemia, arthritis, gastritis, colitis, hyponatremia presented with headache and gait disturbances and noted to have hyponatremia. 1. Euvolemic hyponatremia 2. Headaches 3. Hypertension 4. DM type 2 5. Anemia Urine studies consisent with ADH release however Na improved with isotonic saline d/c IVF today and trend Na daily can plan d/c home if Na > 130 continue free water restriction of 1L Thank you Garfield Alonso DO
[2019-04-11] MEDS: DIVALPROEX NA *ER* EXTEND REL 250 MG TABLET.SA PO SCH (21:35)
[2019-04-11] MEDS: PREGABALIN 75 MG CAPSULE PO SCH (21:36)
[2019-04-11] MEDS: MELATONIN 5 MG TABLETS PO PRN (23:51)
[2019-04-12] MEDS: metFORMIN HCL 500 MG TABLET (FP) PO SCH (06:04)
[2019-04-12 08:04] LABS: HEMATOCRIT 31.3 % (32.4-45.2); HEMOGLOBIN 10.6 GM/dL (10.7-15.3); MCH 27.9 pg (25.7-33.7); MCHC 33.9 g/dl (32.0-36.0); MEAN CELL VOLUME 82.4 fl (80-96); MEAN PLT VOLUME 7.6 fl (7.5-11.1); PLATELET COUNT 280 K/MM3 (134-434); RDW 14.2 % (11.6-15.6); WHITE BLOOD COUNT 5.2 K/mm3 (4.0-10.0)
[2019-04-12 08:35] LABS: ALBUMIN 3.9 g/dl (3.4-5.0); BILIRUBIN,TOTAL 0.6 mg/dL (0.2-1); BLOOD UREA NITROGEN 14.9 mg/dL (7-18); CREATININE 0.7 mg/dL (0.55-1.3); POTASSIUM 4.8 mmol/L (3.5-5.1); TOT PROT 7.1 g/dl (6.4-8.2)
[2019-04-12] MEDS ORDERED: PT OWN MED DRAWER 7, Y5N ONE ×3 (09:12→12:02)
[2019-04-12] MEDS: PANTOPRAZOLE 40 MG TABLET (FP) PO SCH (09:18)
[2019-04-12] MEDS: ASPIRIN 81 MG CHEWABLE TABLETS PO SCH (09:19)
[2019-04-12] MEDS: CLOPIDOGREL BISULFATE 75 MG TABLET (FP) PO SCH (09:19)
[2019-04-12] MEDS: LOSARTAN POTASSIUM 25 MG TABLET PO SCH (09:19)
[2019-04-12] MEDS: TAMSULOSIN HCL 0.4 MG CAP PO SCH (09:19)
[2019-04-12] MEDS: LIPASE/PROTEASE/AMYLASE 36,000 UNIT CAPSULE PO SCH ×2 (09:20→12:03)
[2019-04-12 11:10] VITALS: BP 135/74; PULSE 86; TEMP 98.3
--- NOTE | 2019-04-12 11:32 | DS ---
Physical Examination Vital Signs: Vital Signs Temperature 98.3 F 04/12/19 10:00 Pulse Rate 86 04/12/19 10:00 Respiratory Rate 18 04/12/19 10:00 Blood Pressure 135/74 04/12/19 10:00 O2 Sat by Pulse Oximetry (%) 98 04/12/19 09:00 Findings/Remarks: AWAKE ALERT FEELS GOOD WOULD LIKE TO GO HOME Constitutional: Yes: No Distress Eyes: Yes: WNL HENT: Yes: WNL Neck: Yes: WNL Cardiovascular: Yes: WNL Respiratory: Yes: WNL Gastrointestinal: Yes: WNL Musculoskeletal: Yes: WNL Extremities: Yes: WNL Edema: No Peripheral Pulses WNL: Yes Integumentary: Yes: WNL Wound/Incision: Yes: Clean/Dry Neurological: Yes: WNL ...Motor Strength: WNL Labs: CBC, BMP 04/12/19 07:40 04/12/19 07:40 Discharge Summary Problems reviewed: Yes Reason For Visit: HEADACHE,HYPONATREMIA,NAUSEA AND VOMITING Current Active Problems Headache (Acute) Unsteady gait (Acute) HYPONATREMIA Procedures: Principal: CT SCANS/LABS Other Procedures: LABS Hospital Course: ADMITTED GIVEN IV FLUIDS, PT EVAL, NEURO AND RENAL WORKUP Health Concerns: UNSTEADY GAIT USES CANE Plan of Treatment: MONITOR LABS WEEKLY Goals: SEE YOUR PMD Monday04/15/19 Condition: Improved - Instructions Diet, Activity, Other Instructions: SEE DR JAMIE CERDA 830AM FOR LABS AND FOLLOW UP ADA / LOW FAT DIET Disposition: VNS/HOME HEALTH CARE - Home Medications Comprehensive Discharge Medication List: Ambulatory Orders Losartan Potassium [Cozaar -] 25 mg PO DAILY #30 tablet MDD 1 07/19/18 Acetaminophen 650 mg PO PRN PRN 04/09/19 Metformin HCl [Glucophage] 1,000 mg PO BIDAC 04/09/19 Omeprazole 40 mg PO BID 04/09/19 Pregabalin [Lyrica -] 75 mg PO HS 04/09/19 Albuterol Sulfate Inhaler - [Ventolin HFA Inhaler -] 1 puff IH Q6H PRN 04/10/19 Aspirin 81 mg PO DAILY 04/10/19 Clopidogrel Bisulfate [Plavix] 75 mg PO DAILY 04/10/19 Lipase/Protease/Amylase [Mae Wall 36,000 Units Capsule] 1 each PO TIDCM Tamsulosin HCl [Flomax] 0.4 mg PO DAILY@1000 04/10/19 Divalproex *ER* [Depakote *ER* -] 250 mg PO HS #30 tablet.sa 04/12/19 Melatonin 5 mg PO HS PRN #30 tab 04/12/19 Prescription Drug Monitoring Program (I-STOP) results: I-STOP not reviewed
== END 2019-04-12 15:13 | disposition home health service (06) | DRG 641 ==
LOC: JER 17:36 → JERBED 21:43 → J8W 23:41
PROVIDERS: ADMIT Family Medicine; ATTEND Family Medicine
DX: E87.1 Hypo-osmolality and hyponatremia (principal); I10 Essential (primary) hypertension; E78.5 Hyperlipidemia, unspecified; E11.9 Type 2 diabetes mellitus without complications; K29.70 Gastritis, unspecified, without bleeding; G44.40 Drug-induced headache, not elsewhere classified, not intractable; T39.95XA Adverse effect of unspecified nonopioid analgesic, antipyretic and antirheumatic, initial encounter; E11.42 Type 2 diabetes mellitus with diabetic polyneuropathy; D64.9 Anemia, unspecified; R26.81 Unsteadiness on feet; M19.90 Unspecified osteoarthritis, unspecified site; R11.2 Nausea with vomiting, unspecified
CPT/HCPCS: 36415; 70450-TC; 71045-TC-FY; 80048; 80053; 82436; 82728; 82962; 83540; 83550; 83930; 83935; 84133; 84300; 84443; 84550; 85025; 85027; 85651; 86140; 93005; 93010; 97116-GP; 97161-GP; 99285-25; J0131; J1756; J7030

== ENCOUNTER 2019-07-24 18:20 | Emergency (ER) | payer OTHER ==
[2019-07-24 18:34] VITALS: BMI 26.4
--- NOTE | 2019-07-24 18:36 | PDOC ---
Rapid Medical Evaluation Chief Complaint: Chest Pain Time Seen by Provider: 07/24/19 18:32 Medical Evaluation: Allergies Allergy/AdvReac Type Severity Reaction Status Date / Time ketorolac [From Toradol] Allergy Intermediate Verified 04/09/19 17:50 codeine Allergy Verified 04/09/19 17:50 cortisone Allergy Verified 04/09/19 17:50 fentanyl Allergy Verified 04/09/19 17:50 hydrocodone Allergy Verified 04/09/19 17:50 morphine Allergy Verified 04/09/19 17:50 oxycodone Allergy Verified 04/09/19 17:50 penicillin V Allergy Verified 04/09/19 17:50 tramadol Allergy Verified 04/09/19 17:50 07/24/19 18:32 Pt presents for evaluation of chest pain, abdominal pain and headache for 8 days. Pt has pacemaker. Exam: lungs ctab, rrr, s1s2 present. no m/r/g Orders: cardiac work up Pt to proceed to the ER for further evaluation Discharge Disposition - Diagnosis Chest pain Qualifiers: Chest pain type: unspecified Qualified Code(s): R07.9 - Chest pain, unspecified - Discharge Dispostion Condition at time of disposition: Stable - Referrals - Patient Instructions - Post Discharge Activity
--- NOTE | 2019-07-24 19:04 | PDOC ---
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 She has come here bc she lost balance in her body but has not fallen down bc she has her cane which helps her. She has pain all over body in her legs, stomach, head, and arms. She feels very nauseous but denies emesis. She has a headache despite taking naprosyn. She states that she think her sodium has been low for 8 days so had to come to hospital. She states she has felt like this in the past and it was as a result of low sodium but she hasn't actually had her sodium checked. She cannot stand the pain in her body, the headaches, the nausea, and she feels awful. She denies recent fevers but endorses frequent chills. PCP: Yasmany Dennis PSH: Pacemaker, bladder sx, cholecystectomy, left leg sx, knee implant, r hand surgery Social Hx: Denies smoking cigarettes, alcohol, or other substance usage. Lives at home, independent in ADL, has home attendent to help out at home. Allergies: toradol, codeine, cortisone, fentanyl, hydrocodone, morphine - more see med rec Past History - Past Medical History Allergies/Adverse Reactions: Allergies Allergy/AdvReac Type Severity Reaction Status Date / Time ketorolac [From Toradol] Allergy Intermediate Verified 07/24/19 20:07 codeine Allergy Verified 07/24/19 20:07 cortisone Allergy Verified 07/24/19 20:07 fentanyl Allergy Verified 07/24/19 20:07 hydrocodone Allergy Verified 07/24/19 20:07 morphine Allergy Verified 07/24/19 20:07 oxycodone Allergy Verified 07/24/19 20:07 penicillin V Allergy Verified 07/24/19 20:07 tramadol Allergy Verified 07/24/19 20:07 Home Medications: Ambulatory Orders Losartan Potassium [Cozaar -] 25 mg PO DAILY #30 tablet MDD 1 07/19/18 Acetaminophen 650 mg PO PRN PRN 04/09/19 Metformin HCl [Glucophage] 1,000 mg PO BIDAC 04/09/19 Omeprazole 40 mg PO BID 04/09/19 Pregabalin [Lyrica -] 75 mg PO HS 04/09/19 Albuterol Sulfate Inhaler - [Ventolin HFA Inhaler -] 1 puff IH Q6H PRN 04/10/19 Aspirin 81 mg PO DAILY 04/10/19 Clopidogrel Bisulfate [Plavix] 75 mg PO DAILY 04/10/19 Lipase/Protease/Amylase [Mae Dr 36,000 Units Capsule] 1 each PO TIDCM Tamsulosin HCl [Flomax] 0.4 mg PO DAILY@1000 04/10/19 Divalproex *ER* [Depakote *ER* -] 250 mg PO HS #30 tablet.sa 04/12/19 Melatonin 5 mg PO HS PRN #30 tab 04/12/19 Nitrofurantoin Monohyd/M-Cryst [Macrobid -] 100 mg PO BID #14 capsule 07/24/19 Anemia: No Asthma: No Cancer: No Cardiac Disorders: Yes (PM 02/02/2019) CVA: No COPD: No CHF: No Dementia: No Diabetes: Yes GI Disorders: Yes (gastritis,colitis) Disorders: No HTN: Yes Hypercholesterolemia: Yes Liver Disease: No Seizures: No Thyroid Disease: No - Surgical History Abdominal Surgery: No Appendectomy: Yes Cardiac Surgery: No Cholecystectomy: Yes Lung Surgery: No Neurologic Surgery: No Orthopedic Surgery: Yes (Knee) - Immunization History Td Vaccination: Yes TDAP Vaccination: Yes Immunization Up to Date: No - Psycho Social/Smoking Cessation Hx Smoking History: Never smoked Have you smoked in the past 12 months: No Information on smoking cessation initiated: No Hx Alcohol Use: No Drug/Substance Use Hx: No Substance Use Type: None Review of Systems - Review of Systems Able to Perform ROS?: Yes Comments:: CONSTITUTIONAL: Present: Chills Absent: fever, no fatigue EYES: Absent: visual changes ENT: Absent: ear pain, no sore throat CARDIOVASCULAR: Present: Chest pain Absent: no palpitations RESPIRATORY: Absent: cough, no SOB GI: Present: Abdominal pain, nausea Absent: no vomiting, no constipation, no diarrhea GENITOURINARY: Present: dysuria, frequency Absent: no hematuria MUSKULOSKELETAL: Present: Back pain, myalgia Absent: no arthralgia SKIN: Absent: rash NEURO: Present: headache *Physical Exam - Vital Signs Last Vital Signs Temp Pulse Resp BP Pulse Ox 98.0 F 92 H 16 121/59 L 98 07/24/19 18:28 07/24/19 18:28 07/24/19 18:28 07/24/19 18:28 07/24/19 18:28 - Physical Exam GENERAL: Appears uncomfortable. Well-nourished. Mild distress. HEENT: Normocephalic, atraumatic. PERRL, EOM intact. CARDIOVASCULAR: Normal S1, S2. Regular rate and rhythm. PULMONARY: No evidence of respiratory distress. Lungs clear to auscultation bilaterally. No wheezing, rales or rhonchi. ABDOMEN: Mild suprapubic TTP. Soft, non-distended. EXTREMITIES: Normal ROM in all four extremities. No gross deformities. SKIN: Warm, dry. No rash NEUROLOGICAL: No focal neurological deficits. 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 She has come here bc she lost balance in her body but has not fallen down bc she has her cane which helps her. She has pain all over body in her legs, stomach, head, and arms. She feels very nauseous but denies emesis. She has a headache despite taking naprosyn. She states that she think her sodium has been low for 8 days so had to come to hospital. She states she has felt like this in the past and it was as a result of low sodium but she hasn't actually had her sodium checked. She cannot stand the pain in her body, the headaches, the nausea, and she feels awful. She denies recent fevers but endorses frequent chills. Vital Signs Temp Pulse Resp BP Pulse Ox 98.0 F 92 H 16 121/59 L 98 07/24/19 18:28 07/24/19 18:28 07/24/19 18:28 07/24/19 18:28 07/24/19 18:28 DDx IBNLT: Electrolyte/metabolic disturbance, ACS, pneumothorax, PNA, UTI/Pylo, anemia, influenza Plan: Labs, ekg, cxr, urine, supportive care, re-assess EKG: NS rhythm not conerning for ACS. one flipped T wave in V2 no ST elevations or depressions. Influenza: Negative Labs: Mild hypomagnesemia - repleting IV. Elevated BUN - Hydrating w 2LNS, mildly elevated potassium of 5.3. Trop x2 negative. Urine: Suggests patient has infection - Will treat with macrobid - Sent to pharmacy Re-assessment: Patient doing much better after IV hydration and supportive care Dispo: Home with Abx script Discharge - Discharge Information Problems reviewed: Yes Clinical Impression/Diagnosis: Chest pain Qualifiers: Chest pain type: unspecified Qualified Code(s): R07.9 - Chest pain, unspecified UTI (urinary tract infection) Qualifiers: Urinary tract infection type: acute cystitis Hematuria presence: without hematuria Qualified Code(s): N30.00 - Acute cystitis without hematuria Condition: Improved Disposition: HOME - Admission No - Additional Discharge Information Prescriptions: Nitrofurantoin Monohyd/M-Cryst [Macrobid -] 100 mg PO BID #14 capsule - Follow up/Referral Referrals: Yasmany Dennis [Primary Care Provider] - - Patient Discharge Instructions Patient Printed Discharge Instructions: Urinary Tract Infection Additional Instructions: You came into the ER with diffuse body pain. We looked at your urine and it showed that you have a urinary tract infection. We sent an antibiotic to your pharmacy for you to take for the next week. Please make sure to go and pick it up. Please schedule a follow up appointment with your doctor in the next 3 to 5 days to make sure you are feeling well and getting better. Come back to the ER immediately with any new or worsening concerns. Thank you for coming to the [facility] ER. We hope you feel better soon! Print Language: [place] - Post Discharge Activity
--- NOTE | 2019-07-24 19:23 | PDOC ---
Attending Attestation - Resident Resident Name: Kevin Pederson - ED Attending Attestation I have performed the following: I have examined & evaluated the patient, The case was reviewed & discussed with the resident, I agree w/resident's findings & plan - HPI HPI: 07/24/19 22:38 see resident hpi - Physicial Exam PE: 07/24/19 22:38 agree with resident exam - Medical Decision Making 07/24/19 22:38 73-year-old female with whole body pain and malaise Labs consistent with urinary tract infection Troponins negative x2 EKG shows no acute abnormality We will DC on antibiotics with outpatient follow-up Of note patient feels much better after Tylenol and Reglan.
[2019-07-24 19:57] LABS: BASO % 0.5 % (0-2.0); EOS % 5.9 % (0-4.5); HEMATOCRIT 35.1 % (32.4-45.2); HEMOGLOBIN 11.5 GM/dL (10.7-15.3); LYMPH % 23.1 % (8-40); MCHC 32.8 g/dl (32.0-36.0); MEAN CELL VOLUME 85.3 fl (80-96); MONO % 7.9 % (3.8-10.2); NEUT % 62.6 % (42.8-82.8); PLATELET COUNT 244 K/MM3 (134-434); RBC 4.11 M/mm3 (3.60-5.2); RDW 14.9 % (11.6-15.6)
[2019-07-24] MEDS ORDERED: ACETAMINOPHEN 1000 MG/100 ML VIAL (NON FORMULARY) IVPB ONE (20:02)
[2019-07-24] MEDS ORDERED: METOCLOPRAMIDE HCL 10 MG TABLET (FP) PO ONE ×2 (20:03→21:03)
[2019-07-24] MEDS ORDERED: SODIUM CHLORIDE 0.9% 500 ML INFUS.BAG IV ONE (20:04)
[2019-07-24 20:25] LABS: ALBUMIN 4.2 g/dl (3.4-5.0); BILIRUBIN,TOTAL 0.2 mg/dL (0.2-1); CALCIUM 8.9 mg/dL (8.5-10.1); CREATININE 0.9 mg/dL (0.55-1.3); MAGNESIUM 1.7 mg/dL (1.8-2.4); POTASSIUM 5.3 mmol/L (3.5-5.1); TOT PROT 7.4 g/dl (6.4-8.2)
[2019-07-24] MEDS ORDERED: METOCLOPRAMIDE HCL INJECTION 10 MG/2 ML VIAL ONE (20:33)
[2019-07-24] MEDS ORDERED: ACETAMINOPHEN INJECTION 100 ML IVPB ONE (20:34)
[2019-07-24] MEDS ORDERED: MAGNESIUM SULF 50% (8.12 MEQ/2 ML-1 GM VIAL) IVPB ONE (20:43)
[2019-07-24] MEDS ORDERED: MAGNESIUM 1GM/D5W - 1 GM/100 ML IVPB IVPB ONE (21:03)
[2019-07-24 21:32] LABS: HYALINE CASTS 3 /lpf (0-8); URINE APPEARANCE CLEAR; URINE BACTERIA 3234.5 /hpf (NEGATIVE); URINE BILIRUBIN NEGATIVE (NEGATIVE); URINE COLOR YELLOW; URINE GLUCOSE (UA) NEGATIVE (NEGATIVE); URINE KETONE NEGATIVE (NEGATIVE); URINE LEUK ESTERASE 1+ (NEGATIVE); URINE NITRITE POSITIVE (NEGATIVE); URINE PROTEIN NEGATIVE (NEGATIVE); URINE RBC 1 /hpf (0-4); URINE UROBILINOGEN 0.2 mg/dL (0.2-1.0); URINE WBC 20 /hpf (0-5)
[2019-07-24] MEDS ORDERED: NITROFURANTOIN MACROCRYSTAL 50 MG CAPSULE (FP) PO SCH (21:45)
[2019-07-24] MEDS ORDERED: NITROFURANTOIN MACROCRYSTAL 50 MG CAPSULE (FP) ONE (22:10)
[2019-07-24 22:19] VITALS: BP 116/68; PULSE 74; TEMP 97.4
--- NOTE | 2019-07-25 11:57 | EKG ---
Test Reason : Blood Pressure : / mmHG Vent. Rate : 085 BPM Atrial Rate : 085 BPM P-R Int : 200 ms QRS Dur : 086 ms QT Int : 360 ms P-R-T Axes : 053 -23 045 degrees QTc Int : 428 ms NORMAL SINUS RHYTHM NORMAL ECG WHEN COMPARED WITH ECG OF 09-APR-2019 18:01, SINUS RHYTHM IS NO LONGER WITH 2ND DEGREE A-V BLOCK (MOBITZ I) Confirmed by EROS RUBIO, SUN ([id number]) on 07/25/2019 11:57:00 AM Referred By: Confirmed By:SUN COONEY MD
== END 2019-07-24 22:57 | disposition home or self-care (01) ==
LOC: JER 18:20
PROC: 3E033NZ Introduction of Analgesics, Hypnotics, Sedatives into Peripheral Vein, Percutaneous Approach (ICD-10-PCS; principal; 2019-07-24)
PROC: 3E033GC Introduction of Other Therapeutic Substance into Peripheral Vein, Percutaneous Approach (ICD-10-PCS; 2019-07-24)
PROC: 3E0337Z Introduction of Electrolytic and Water Balance Substance into Peripheral Vein, Percutaneous Approach (ICD-10-PCS; 2019-07-24)
DX: R07.9 Chest pain, unspecified (principal); N30.00 Acute cystitis without hematuria; Z88.6 Allergy status to analgesic agent; Z88.8 Allergy status to other drugs, medicaments and biological substances; I10 Essential (primary) hypertension; E78.5 Hyperlipidemia, unspecified; E11.9 Type 2 diabetes mellitus without complications; K29.70 Gastritis, unspecified, without bleeding
CPT/HCPCS: 36415; 71045-TC-FY; 80053; 80164; 81003; 82550; 83735; 84484; 85025; 87086; 87186; 87804; 93005; 93010; 99285-25; J0131

== ENCOUNTER 2020-08-16 23:33 | Emergency (ER) | payer OTHER ==
[2020-08-16 23:47] VITALS: BMI 27.6
[2020-08-17] MEDS ORDERED: ACETAMINOPHEN 1000 MG/100 ML VIAL (NON FORMULARY) IVPB ONE (00:18)
[2020-08-17] MEDS ORDERED: ACETAMINOPHEN INJECTION 100 ML IVPB ONE (00:20)
[2020-08-17 00:45] LABS: BASO % 0.6 % (0-2.0); HEMOGLOBIN 11.3 GM/dL (10.7-15.3); LYMPH % 39.2 % (8-40); MCH 29.3 pg (25.7-33.7); MCHC 33.2 g/dl (32.0-36.0); MEAN CELL VOLUME 88.2 fl (80-96); MEAN PLT VOLUME 8.2 fl (7.5-11.1); MONO % 9.5 % (3.8-10.2); NEUT % 45.7 % (42.8-82.8); PLATELET COUNT 241 K/MM3 (134-434); RBC 3.85 M/mm3 (3.60-5.2); RDW 13.4 % (11.6-15.6); WHITE BLOOD COUNT 5.6 K/mm3 (4.0-10.0)
[2020-08-17 00:48] LABS: CHLORIDE 100 mmol/L (98-107); POTASSIUM 4.4 mmol/L (3.5-5.1); SODIUM 134 mmol/L (136-145)
[2020-08-17 00:50] LABS: ALBUMIN 3.6 g/dl (3.4-5.0); ANION GAP 10 MMOL/L (8-16); CALCIUM 8.1 mg/dL (8.5-10.1); CO2 24 mmol/L (21-32); GLUCOSE,RANDOM 233 mg/dL (74-106)
[2020-08-17 00:51] LABS: BLOOD UREA NITROGEN 14.6 mg/dL (7-18); MAGNESIUM 1.6 mg/dL (1.8-2.4)
[2020-08-17 00:53] LABS: CREATININE 0.7 mg/dL (0.55-1.3); SGOT/AST 27 U/L (15-37); SGPT/ALT 21 U/L (13-61)
[2020-08-17 00:54] LABS: PHOSPHOROUS 2.4 mg/dL (2.5-4.9)
[2020-08-17 00:55] LABS: BILIRUBIN,TOTAL 0.3 mg/dL (0.2-1); TOT PROT 6.8 g/dl (6.4-8.2); URINE APPEARANCE CLEAR; URINE BILIRUBIN NEGATIVE (NEGATIVE); URINE COLOR YELLOW; URINE GLUCOSE (UA) 2+ (NEGATIVE); URINE KETONE NEGATIVE (NEGATIVE); URINE LEUK ESTERASE NEGATIVE (NEGATIVE); URINE NITRITE NEGATIVE (NEGATIVE); URINE PROTEIN NEGATIVE (NEGATIVE); URINE UROBILINOGEN 0.2 mg/dL (0.2-1.0)
[2020-08-17 00:56] LABS: ACTIVATED PTT 28.4 SECONDS (25.2-36.5); ALK PHOS 141 U/L (45-117)
[2020-08-17 01:13] LABS: INR 0.9 (0.83-1.09); PROTHROMBIN TIME (PATIENT) 10.9 SEC (9.7-13.0)
[2020-08-17] MEDS ORDERED: MECLIZINE HCL 25 MG TABLET (FP) PO ONE (03:43)
[2020-08-17] MEDS ORDERED: MECLIZINE HCL 25 MG TABLET (FP) ONE (03:46)
[2020-08-17 06:29] VITALS: BP 158/63; PULSE 89; TEMP 97.8
== END 2020-08-17 06:28 | disposition home or self-care (01) ==
LOC: JER 23:33
PROC: 3E033NZ Introduction of Analgesics, Hypnotics, Sedatives into Peripheral Vein, Percutaneous Approach (ICD-10-PCS; principal; 2020-08-17)
DX: M25.562 Pain in left knee (principal)
CPT/HCPCS: 36415; 70450-TC; 71046-TC-FY; 72125-TC; 73523-TC-FY; 73560-TC-LT-FY; 80053; 81003; 82550; 82553; 82962; 83735; 84100; 84443; 84484; 85025; 85610; 85730; 87077; 87086; 93005; 93010; 99285-25; C9803; J0131; U0003

== ENCOUNTER 2020-12-09 14:15 | Observation (INO) | payer OTHER ==
[2020-12-09] MEDS ORDERED: MAG HYDROX/AL HYDROX/SIMETH 30 ML UNIT-DOSE CUP PO PRN (15:14)
[2020-12-09] MEDS ORDERED: FAMOTIDINE 20 MG/50 ML IVPB 20 MG/50 ML MG IVPB ONE ×2 (15:14→15:33)
[2020-12-09] MEDS ORDERED: ACETAMINOPHEN 1000 MG/100 ML VIAL (NON FORMULARY) IVPB ONE (15:14)
[2020-12-09] MEDS ORDERED: ACETAMINOPHEN INJECTION 100 ML IVPB ONE (15:32)
[2020-12-09] MEDS ORDERED: MAG HYDROX/AL HYDROX/SIMETH 30 ML UNIT-DOSE CUP ONE (15:33)
[2020-12-09 16:49] LABS: BASO % 0.7 % (0-2.0); EOS % 3.2 % (0-4.5); HEMATOCRIT 34.2 % (32.4-45.2); HEMOGLOBIN 11.5 GM/dL (10.7-15.3); LYMPH % 29.3 % (8-40); MCH 28.5 pg (25.7-33.7); MCHC 33.6 g/dl (32.0-36.0); MEAN CELL VOLUME 84.7 fl (80-96); MEAN PLT VOLUME 8.4 fl (7.5-11.1); MONO % 7.8 % (3.8-10.2); PLATELET COUNT 227 K/MM3 (134-434); RBC 4.04 M/mm3 (3.60-5.2); RDW 13.7 % (11.6-15.6); WHITE BLOOD COUNT 7.6 K/mm3 (4.0-10.0)
[2020-12-09 17:06] LABS: CHLORIDE 92 mmol/L (98-107); SODIUM 131 mmol/L (136-145)
[2020-12-09 17:12] LABS: CALCIUM 9.1 mg/dL (8.5-10.1)
[2020-12-09 17:13] LABS: ALBUMIN 3.8 g/dl (3.4-5.0); ANION GAP 11 MMOL/L (8-16); BLOOD UREA NITROGEN 13.3 mg/dL (7-18); CO2 27 mmol/L (21-32); GLUCOSE,RANDOM 258 mg/dL (74-106)
[2020-12-09 17:14] LABS: LIPASE 216 U/L (73-393); SGPT/ALT 21 U/L (13-61)
[2020-12-09 17:15] LABS: SGOT/AST 16 U/L (15-37)
[2020-12-09 17:16] LABS: BILIRUBIN,TOTAL 0.2 mg/dL (0.2-1); CREATININE 0.9 mg/dL (0.55-1.3); TOT PROT 7.2 g/dl (6.4-8.2)
[2020-12-09 17:16] LABS: EPI CELLS 8 /uL (0-25.1); HYALINE CASTS 1 /uL (0-3.1); PH,URINE 5.5 (5.0-8.0); URINE APPEARANCE CLOUDY; URINE BACTERIA >9,000 /uL (0-1359); URINE BILIRUBIN NEGATIVE (NEGATIVE); URINE COLOR YELLOW; URINE GLUCOSE (UA) 3+ (NEGATIVE); URINE KETONE NEGATIVE (NEGATIVE); URINE LEUK ESTERASE 2+ (NEGATIVE); URINE NITRITE POSITIVE (NEGATIVE); URINE PROTEIN NEGATIVE (NEGATIVE); URINE RBC 10 /uL (0-23.9); URINE UROBILINOGEN 0.2 mg/dL (0.2-1.0); URINE WBC 386 /uL (0-25.8)
[2020-12-09 17:17] LABS: ALK PHOS 132 U/L (45-117)
[2020-12-09] MEDS ORDERED: CEFTRIAXONE 1 GM in DEXTROSE 5%-WATER - 100 ML IVPB ONE (19:13)
[2020-12-09] MEDS ORDERED: CEFTRIAXONE 1 GM/50 ML BAG ONE (19:30)
[2020-12-09] MEDS ORDERED: SODIUM CHLORIDE 0.9% 500 ML INFUS.BAG IV ONE (19:34)
[2020-12-09 23:30] VITALS: BMI 26.7
[2020-12-09] MEDS ORDERED: ACETAMINOPHEN 325 MG TABLET (FP) PO PRN (23:48)
[2020-12-09] MEDS ORDERED: ALBUTEROL SO4 HFA INHALER IH PRN (23:48)
[2020-12-10] MEDS ORDERED: ACETAMINOPHEN 325 MG TABLET (FP) PO PRN (00:31)
[2020-12-10] MEDS ORDERED: MELATONIN 5 MG TABLETS PO PRN (00:33)
[2020-12-10] MEDS: PREGABALIN 75 MG CAPSULE PO SCH ×2 (05:34→22:12)
[2020-12-10] MEDS: PHENAZOPYRIDINE HCL 100 MG TABLET (FP) PO PRN ×2 (06:46→11:30)
[2020-12-10 06:54] LABS: BASO % 0.5 % (0-2.0); EOS % 3.6 % (0-4.5); HEMATOCRIT 34.6 % (32.4-45.2); HEMOGLOBIN 11.4 GM/dL (10.7-15.3); MCH 28.1 pg (25.7-33.7); MCHC 33.1 g/dl (32.0-36.0); MEAN PLT VOLUME 8.4 fl (7.5-11.1); MONO % 7.8 % (3.8-10.2); NEUT % 56.1 % (42.8-82.8); PLATELET COUNT 220 K/MM3 (134-434); RBC 4.07 M/mm3 (3.60-5.2); WHITE BLOOD COUNT 6.8 K/mm3 (4.0-10.0)
[2020-12-10 07:21] LABS: BLOOD UREA NITROGEN 10.2 mg/dL (7-18); CALCIUM 8.7 mg/dL (8.5-10.1)
[2020-12-10 07:24] LABS: CREATININE 0.7 mg/dL (0.55-1.3)
[2020-12-10] MEDS ORDERED: PT OWN MED DRAWER 7, Y5N ONE ×3 (07:44→11:29)
[2020-12-10] MEDS: CLOPIDOGREL BISULFATE 75 MG TABLET (FP) PO SCH (09:23)
[2020-12-10] MEDS: LIPASE/PROTEASE/AMYLASE 36,000 UNIT CAPSULE PO SCH ×2 (09:23→11:30)
[2020-12-10] MEDS: CHLORTHALIDONE 25 MG TABLET PO SCH (09:24)
[2020-12-10] MEDS: TAMSULOSIN HCL 0.4 MG CAP PO SCH (09:24)
[2020-12-10] MEDS ORDERED: PANTOPRAZOLE SOD 40 MG SUSPENSION PACKET PO SCH (10:00)
[2020-12-10] MEDS: INSULIN SLIDING SCALE (NOVOLOG) 1 VIAL SQ SCH ×3 (11:30→22:17)
[2020-12-10] MEDS ORDERED: DEXTROSE 5%-WATER 100 ML IVPB ONE (14:07)
[2020-12-10] MEDS: CEFTRIAXONE 2 GM in DEXTROSE 5%-WATER 2 GM/100 ML BAG IVPB SCH (14:23)
[2020-12-10] MEDS ORDERED: DIVALPROEX NA *ER* EXTEND REL 250 MG TABLET.SA PO SCH (22:00)
[2020-12-11 03:37] VITALS: TEMP 97.8
[2020-12-11] MEDS: INSULIN SLIDING SCALE (NOVOLOG) 1 VIAL SQ SCH ×2 (06:23→11:15)
[2020-12-11] MEDS ORDERED: DEXTROSE 5%-WATER 100 ML IVPB ONE (08:45)
[2020-12-11] MEDS: TAMSULOSIN HCL 0.4 MG CAP PO SCH (09:37)
[2020-12-11] MEDS: CHLORTHALIDONE 25 MG TABLET PO SCH (09:38)
[2020-12-11] MEDS: CEFTRIAXONE 2 GM in DEXTROSE 5%-WATER 2 GM/100 ML BAG IVPB SCH (09:38)
[2020-12-11] MEDS: CLOPIDOGREL BISULFATE 75 MG TABLET (FP) PO SCH (09:38)
[2020-12-11 09:44] VITALS: BP 127/74; PULSE 83
[2020-12-13] MEDS ORDERED: CHOLECALCIFEROL (VIT D3) 5000 UNITS (125 MCG) CAP PO SCH (10:00)
== END 2020-12-11 14:24 | disposition home or self-care (01) ==
LOC: JER 14:15 → JERBED 19:09 → J7W 22:35
PROVIDERS: ADMIT Hospitalist; ATTEND Family Medicine
PROC: 3E03329 Introduction of Other Anti-infective into Peripheral Vein, Percutaneous Approach (ICD-10-PCS; principal; 2020-12-09)
PROC: 3E03329 Introduction of Other Anti-infective into Peripheral Vein, Percutaneous Approach (ICD-10-PCS; 2020-12-09)
PROC: 3E033NZ Introduction of Analgesics, Hypnotics, Sedatives into Peripheral Vein, Percutaneous Approach (ICD-10-PCS; 2020-12-09)
PROC: 3E013VG Introduction of Insulin into Subcutaneous Tissue, Percutaneous Approach (ICD-10-PCS; 2020-12-09)
DX: N30.00 Acute cystitis without hematuria (principal); N12 Tubulo-interstitial nephritis, not specified as acute or chronic; K52.9 Noninfective gastroenteritis and colitis, unspecified; B96.29 Other Escherichia coli [E. coli] as the cause of diseases classified elsewhere; I10 Essential (primary) hypertension; E11.9 Type 2 diabetes mellitus without complications; Z79.84 Long term (current) use of oral hypoglycemic drugs; Z95.0 Presence of cardiac pacemaker; Z96.652 Presence of left artificial knee joint; Z90.49 Acquired absence of other specified parts of digestive tract
CPT/HCPCS: 36415; 71046-TC-FY; 74177-TC; 80048; 80053; 81003; 82962; 83036; 83690; 84484; 85025; 87040; 87086; 87186; 93005; 93010; 96365; 96367; 96372; 96375; 97116-GP; 97161-GP; 99285-25; C9803; G0378; J0131; Q9967; U0003; U0005

== ENCOUNTER 2022-02-03 22:30 | Observation (INO) | payer OTHER ==
[2022-02-04 01:27] LABS: BASO % 0.5 % (0-2.0); EOS % 4.8 % (0-4.5); HEMATOCRIT 35.6 % (32.4-45.2); HEMOGLOBIN 11.8 GM/dL (10.7-15.3); LYMPH % 39.3 % (8-40); MCHC 33.2 g/dl (32.0-36.0); MEAN CELL VOLUME 81.2 fl (80-96); MONO % 7.6 % (3.8-10.2); NEUT % 47.8 % (42.8-82.8); PLATELET COUNT 297 10^3/uL (134-434); RBC 4.39 M/mm3 (3.60-5.2); RDW 14.4 % (11.6-15.6)
[2022-02-04 01:36] LABS: INR 0.98 (0.83-1.09); PROTHROMBIN TIME (PATIENT) 11.3 SEC (9.7-13.0)
[2022-02-04 01:38] LABS: ACTIVATED PTT 27.7 SECONDS (25.2-36.5)
[2022-02-04 01:50] LABS: BLOOD UREA NITROGEN 16.1 mg/dL (7-18); CALCIUM 9.3 mg/dL (8.5-10.1); MAGNESIUM 1.9 mg/dL (1.8-2.4)
[2022-02-04 01:53] LABS: CREATININE 0.8 mg/dL (0.55-1.3)
[2022-02-04 01:55] LABS: BILIRUBIN,TOTAL 0.4 mg/dL (0.2-1); TOT PROT 7.6 g/dl (6.4-8.2)
[2022-02-04] MEDS ORDERED: ACETAMINOPHEN 1000 MG/100 ML BAG IVPB ONE (05:21)
[2022-02-04] MEDS ORDERED: SODIUM CHLORIDE 0.9% 500 ML INFUS.BAG IV ONE (05:21)
[2022-02-04] MEDS ORDERED: ACETAMINOPHEN INJECTION 100 ML IVPB ONE (07:11)
[2022-02-04] MEDS ORDERED: KCL 10 MEQ IVPB 10 MEQ/100 ML INFUS.BAG IVPB ONE ×3 (07:12→09:57)
[2022-02-04] MEDS: KCL 10 MEQ IVPB 10 MEQ/100 ML INFUS.BAG IVPB SCH ×3 (07:19→10:19)
[2022-02-04] MEDS ORDERED: POTASSIUM CHLORIDE ORAL LIQUID 20 MEQ/15 ML PO ONE (08:14)
[2022-02-04] MEDS ORDERED: KCL 10 MEQ IVPB 10 MEQ/100 ML INFUS.BAG IVPB SCH (08:15)
[2022-02-04] MEDS ORDERED: POTASSIUM CHLORIDE TABS 20 MEQ TABLET.ER (FP) PO ONE (08:37)
[2022-02-04] MEDS ORDERED: amLODIPine BESYLATE 10 MG TABLET (FP) ONE (09:57)
[2022-02-04] MEDS ORDERED: amLODIPine BESYLATE 5 MG TABLET (FP) PO SCH (10:00)
[2022-02-04] MEDS ORDERED: CHLORTHALIDONE 25 MG TABLET PO SCH (10:00)
[2022-02-04] MEDS: amLODIPine BESYLATE 10 MG TABLET (FP) PO SCH ×2 (10:19→11:36)
[2022-02-04 10:44] LABS: URINE APPEARANCE CLEAR; URINE BILIRUBIN NEGATIVE (NEGATIVE); URINE COLOR YELLOW; URINE GLUCOSE (UA) NEGATIVE (NEGATIVE); URINE KETONE NEGATIVE (NEGATIVE); URINE LEUK ESTERASE NEGATIVE (NEGATIVE); URINE NITRITE NEGATIVE (NEGATIVE); URINE PROTEIN NEGATIVE (NEGATIVE)
[2022-02-04] MEDS ORDERED: ENOXAPARIN NA (PORCINE) 40 MG/0.4 ML DISP.SYRIN SQ ONE (11:26)
[2022-02-04] MEDS: INSULIN SLIDING SCALE (NOVOLOG) 1 VIAL SQ SCH ×3 (11:36→21:28)
[2022-02-04] MEDS: ENOXAPARIN NA (PORCINE) 40 MG/0.4 ML DISP.SYRIN SQ SCH (11:40)
[2022-02-04 15:01] VITALS: BMI 25.7
[2022-02-04] MEDS ORDERED: ACETAMINOPHEN 325 MG TABLET (FP) PO PRN (15:14)
[2022-02-04] MEDS ORDERED: CYCLOBENZAPRINE HCL 5 MG TABLET PO ONE (15:17)
[2022-02-04] MEDS: LIPASE/PROTEASE/AMYLASE 36,000 UNIT CAPSULE PO SCH (17:05)
[2022-02-04] MEDS ORDERED: LIPASE/PROTEASE/AMYLASE 6,000 UNIT CAPSULE PO SCH (17:30)
[2022-02-04] MEDS: MIRTAZAPINE 15 MG TABLET (FP) PO SCH (21:27)
[2022-02-04] MEDS: ATORVASTATIN CA 40 MG TABLET (FP) PO SCH (21:28)
[2022-02-05] MEDS: ACETAMINOPHEN 325 MG TABLET (FP) PO PRN ×3 (01:37→11:21)
[2022-02-05] MEDS: INSULIN SLIDING SCALE (NOVOLOG) 1 VIAL SQ SCH ×4 (06:11→21:34)
[2022-02-05] MEDS: LIPASE/PROTEASE/AMYLASE 36,000 UNIT CAPSULE PO SCH ×3 (07:43→16:49)
[2022-02-05 09:02] LABS: BASO % 0.8 % (0-2.0); HEMATOCRIT 38.9 % (32.4-45.2); HEMOGLOBIN 13.1 GM/dL (10.7-15.3); LYMPH % 32.4 % (8-40); MCH 27.2 pg (25.7-33.7); MCHC 33.6 g/dl (32.0-36.0); MEAN CELL VOLUME 80.8 fl (80-96); MEAN PLT VOLUME 7.3 fl (7.5-11.1); NEUT % 54.8 % (42.8-82.8); PLATELET COUNT 306 10^3/uL (134-434); RBC 4.81 M/mm3 (3.60-5.2); RDW 14.4 % (11.6-15.6); WHITE BLOOD COUNT 7.2 K/mm3 (4.0-10.0)
[2022-02-05] MEDS: ENOXAPARIN NA (PORCINE) 40 MG/0.4 ML DISP.SYRIN SQ SCH (09:26)
[2022-02-05 10:29] LABS: MAGNESIUM 1.6 mg/dL (1.8-2.4)
[2022-02-05 10:30] LABS: CALCIUM 9.4 mg/dL (8.5-10.1)
[2022-02-05 10:32] LABS: CREATININE 0.8 mg/dL (0.55-1.3)
[2022-02-05 10:33] LABS: ALBUMIN 4.2 g/dl (3.4-5.0); BLOOD UREA NITROGEN 15.3 mg/dL (7-18)
[2022-02-05 10:34] LABS: TOT PROT 7.9 g/dl (6.4-8.2)
[2022-02-05 10:36] LABS: PHOSPHOROUS 2.9 mg/dL (2.5-4.9)
[2022-02-05 10:38] LABS: BILIRUBIN,TOTAL 0.6 mg/dL (0.2-1)
[2022-02-05] MEDS ORDERED: amLODIPine BESYLATE 5 MG TABLET (FP) PO SCH (11:30)
[2022-02-05] MEDS ORDERED: MAGNESIUM SULF 50% (8.12 MEQ/2 ML-1 GM VIAL) IVPB ONE (17:28)
[2022-02-05] MEDS: MIRTAZAPINE 15 MG TABLET (FP) PO SCH (21:30)
[2022-02-05] MEDS: ATORVASTATIN CA 40 MG TABLET (FP) PO SCH (21:30)
[2022-02-06] MEDS: ACETAMINOPHEN 325 MG TABLET (FP) PO PRN (01:44)
[2022-02-06] MEDS: INSULIN SLIDING SCALE (NOVOLOG) 1 VIAL SQ SCH ×4 (05:59→21:17)
[2022-02-06] MEDS: LIPASE/PROTEASE/AMYLASE 36,000 UNIT CAPSULE PO SCH ×3 (07:36→16:48)
[2022-02-06 08:04] LABS: HEMATOCRIT 38.9 % (32.4-45.2); MCHC 33.4 g/dl (32.0-36.0); MEAN CELL VOLUME 80.8 fl (80-96); MEAN PLT VOLUME 7.2 fl (7.5-11.1); PLATELET COUNT 311 10^3/uL (134-434); RBC 4.81 M/mm3 (3.60-5.2); RDW 14.3 % (11.6-15.6); WHITE BLOOD COUNT 7.5 K/mm3 (4.0-10.0)
[2022-02-06 09:19] LABS: ALBUMIN 4.2 g/dl (3.4-5.0); BLOOD UREA NITROGEN 20.4 mg/dL (7-18)
[2022-02-06 09:22] LABS: CREATININE 0.8 mg/dL (0.55-1.3); PHOSPHOROUS 3.6 mg/dL (2.5-4.9)
[2022-02-06 09:24] LABS: BILIRUBIN,TOTAL 0.5 mg/dL (0.2-1); TOT PROT 7.9 g/dl (6.4-8.2)
[2022-02-06] MEDS: ENOXAPARIN NA (PORCINE) 40 MG/0.4 ML DISP.SYRIN SQ SCH (10:02)
[2022-02-06] MEDS: amLODIPine BESYLATE 10 MG TABLET (FP) PO SCH (10:02)
[2022-02-06 20:54] VITALS: RESP 18
[2022-02-06] MEDS: ATORVASTATIN CA 40 MG TABLET (FP) PO SCH (21:14)
[2022-02-06] MEDS: MIRTAZAPINE 15 MG TABLET (FP) PO SCH (21:14)
[2022-02-07] MEDS: INSULIN SLIDING SCALE (NOVOLOG) 1 VIAL SQ SCH ×2 (06:28→11:14)
[2022-02-07 07:19] LABS: CALCIUM 9.1 mg/dL (8.5-10.1)
[2022-02-07] MEDS: LIPASE/PROTEASE/AMYLASE 36,000 UNIT CAPSULE PO SCH ×2 (07:19→12:35)
[2022-02-07 07:20] LABS: ALBUMIN 3.9 g/dl (3.4-5.0); BLOOD UREA NITROGEN 14.7 mg/dL (7-18); MAGNESIUM 1.8 mg/dL (1.8-2.4)
[2022-02-07 07:23] LABS: CREATININE 0.7 mg/dL (0.55-1.3); PHOSPHOROUS 3.4 mg/dL (2.5-4.9)
[2022-02-07 07:25] LABS: BILIRUBIN,TOTAL 0.6 mg/dL (0.2-1); HEMATOCRIT 36.6 % (32.4-45.2); HEMOGLOBIN 12.3 GM/dL (10.7-15.3); MCHC 33.5 g/dl (32.0-36.0); MEAN CELL VOLUME 80.6 fl (80-96); MEAN PLT VOLUME 7.5 fl (7.5-11.1); PLATELET COUNT 301 10^3/uL (134-434); RBC 4.55 M/mm3 (3.60-5.2); RDW 14.5 % (11.6-15.6); TOT PROT 7.3 g/dl (6.4-8.2); WHITE BLOOD COUNT 7.9 K/mm3 (4.0-10.0)
[2022-02-07] MEDS: amLODIPine BESYLATE 10 MG TABLET (FP) PO SCH (09:46)
[2022-02-07] MEDS ORDERED: LISINOPRIL 5 MG TABLET PO SCH (10:00)
[2022-02-07 10:09] VITALS: PULSE 85
[2022-02-07] MEDS: ENOXAPARIN NA (PORCINE) 40 MG/0.4 ML DISP.SYRIN SQ SCH (11:13)
[2022-02-07] MEDS ORDERED: POLYETHYLENE GLYCOL (HEALTHYLAX) 3350 17 GM PACKET PO SCH (15:15)
[2022-02-07 15:26] VITALS: BP 124/65; TEMP 98.1
[2022-02-07] MEDS ORDERED: INSULIN (LEVEMIR) 100 UNITS/ML UNITS SQ SCH (22:00)
== END 2022-02-07 17:50 | disposition home or self-care (01) ==
LOC: JER 22:30 → JERBED 02-04 05:22 → UNDOADMOB 02-04 05:22 → OBSVTOIN 02-04 08:09 → INTOOBSV 02-04 08:09 → JERBED 02-04 08:25 → J4W 02-04 14:16
PROVIDERS: ADMIT Internal Medicine; ATTEND Internal Medicine
PROC: 3E033NZ Introduction of Analgesics, Hypnotics, Sedatives into Peripheral Vein, Percutaneous Approach (ICD-10-PCS; principal; 2022-02-04)
PROC: 3E0337Z Introduction of Electrolytic and Water Balance Substance into Peripheral Vein, Percutaneous Approach (ICD-10-PCS; 2022-02-04)
PROC: 3E013GC Introduction of Other Therapeutic Substance into Subcutaneous Tissue, Percutaneous Approach (ICD-10-PCS; 2022-02-04)
PROC: 3E013VG Introduction of Insulin into Subcutaneous Tissue, Percutaneous Approach (ICD-10-PCS; 2022-02-04)
DX: I16.0 Hypertensive urgency (principal); R51.9 Headache, unspecified; R42 Dizziness and giddiness; I10 Essential (primary) hypertension; E11.9 Type 2 diabetes mellitus without complications; E78.5 Hyperlipidemia, unspecified; R29.6 Repeated falls; Z79.82 Long term (current) use of aspirin; Z79.84 Long term (current) use of oral hypoglycemic drugs; Z95.0 Presence of cardiac pacemaker; Z87.440 Personal history of urinary (tract) infections; Z88.0 Allergy status to penicillin; Z88.6 Allergy status to analgesic agent; Z88.8 Allergy status to other drugs, medicaments and biological substances
CPT/HCPCS: 36415; 70450-TC; 71045-TC-FY; 74176-TC; 80053; 80061; 81003; 82962; 83036; 83735; 84100; 84439; 84443; 84484; 85025; 85027; 85610; 85730; 86850; 86900; 86901; 87086; 93005; 93010; 93306-TC; 96372; 96375; 97116-GP; 97161-GP; 99285-25; C9803-CS; G0378; U0003; U0005

== ENCOUNTER 2022-06-25 11:09 | Day surgery (SDC) | payer OTHER ==
[2022-06-25] MEDS ORDERED: FERRIC CARBOXYMALTOSE 750 MG in SODIUM CHLORIDE 250 ML IVPB SCH (11:45)
[2022-06-25 13:17] VITALS: BP 138/68; PULSE 89; RESP 18; TEMP 98
== END 2022-06-25 13:17 | disposition home or self-care (01) ==
LOC: FINFUSION 11:09 → FM/S 11:10 → FINFUSION 13:17
PROVIDERS: ATTEND Family Medicine
PROC: 3E033GC Introduction of Other Therapeutic Substance into Peripheral Vein, Percutaneous Approach (ICD-10-PCS; principal; 2022-06-25)
DX: D50.9 Iron deficiency anemia, unspecified (principal)
CPT/HCPCS: 96365; J1439

== ENCOUNTER 2022-07-05 11:27 | Day surgery (SDC) | payer OTHER ==
[2022-07-05] MEDS ORDERED: FERRIC CARBOXYMALTOSE 750 MG in SODIUM CHLORIDE 250 ML IVPB ONE (12:00)
[2022-07-05 13:13] VITALS: BP 144/69; PULSE 82; RESP 17; TEMP 97.8
== END 2022-07-05 13:15 | disposition home or self-care (01) ==
LOC: FINFUSION 11:27 → FM/S 11:29 → FINFUSION 13:15
PROVIDERS: ATTEND Family Medicine
PROC: 3E033GC Introduction of Other Therapeutic Substance into Peripheral Vein, Percutaneous Approach (ICD-10-PCS; principal; 2022-07-05)
DX: D50.9 Iron deficiency anemia, unspecified (principal)
CPT/HCPCS: 96365; J1439

== ENCOUNTER 2023-12-28 13:45 | Emergency (ER) | payer OTHER ==
[2023-12-28 13:59] VITALS: BP 150/48; PULSE 69; RESP 18; TEMP 98; BMI 25.7
[2023-12-28] MEDS ORDERED: ACETAMINOPHEN INJECTION 100 ML IVPB ONE (15:10)
[2023-12-28] MEDS ORDERED: DEXAMETHASONE SOD PHOSPHATE 10 MG/1 ML VIAL ONE (15:10)
[2023-12-28 15:18] LABS: BASO % 0.8 % (0-2.0); EOS % 5.6 % (0-4.5); HEMATOCRIT 32.7 % (32.4-45.2); HEMOGLOBIN 10.9 GM/dL (10.7-15.3); LYMPH % 21.3 % (8-40); MCH 29.4 pg (25.7-33.7); MCHC 33.3 g/dl (32.0-36.0); MEAN CELL VOLUME 88.2 fl (80-96); MEAN PLT VOLUME 7.6 fl (7.5-11.1); MONO % 7.3 % (3.8-10.2); PLATELET COUNT 272 10^3/uL (134-434); RDW 14.1 % (11.6-15.6); WHITE BLOOD COUNT 8.6 K/mm3 (4.0-10.0)
[2023-12-28] MEDS: DEXAMETHASONE SOD PHOSPHATE 10 MG/1 ML VIAL IVPUSH ONE (15:18)
[2023-12-28] MEDS: ACETAMINOPHEN 1000 MG/100 ML BAG IVPB ONE (15:18)
[2023-12-28 15:35] LABS: CHLORIDE 93 mmol/L (98-107); POTASSIUM 5.1 mmol/L (3.5-5.1); SODIUM 130 mmol/L (136-145)
[2023-12-28 15:37] LABS: ALBUMIN 3.8 g/dl (3.4-5.0); ANION GAP 9 mmol/L (4-13); BLOOD UREA NITROGEN 39.7 mg/dL (7-18); CALCIUM 8.9 mg/dL (8.5-10.1); CO2 28 mmol/L (21-32)
[2023-12-28 15:40] LABS: CREATININE 1.5 mg/dL (0.55-1.3); SGOT/AST 17 U/L (15-37); SGPT/ALT 25 U/L (13-61)
[2023-12-28 15:42] LABS: BILIRUBIN,TOTAL 0.4 mg/dL (0.2-1); TOT PROT 7.1 g/dl (6.4-8.2)
[2023-12-28 15:43] LABS: ALK PHOS 175 U/L (45-117)
[2023-12-28 15:44] LABS: GLUCOSE,RANDOM 455 mg/dL (74-106)
== END 2023-12-28 15:37 | disposition home or self-care (01) ==
LOC: JERFT 13:45
PROC: 3E033NZ Introduction of Analgesics, Hypnotics, Sedatives into Peripheral Vein, Percutaneous Approach (ICD-10-PCS; principal; 2023-12-28)
PROC: 3E033GC Introduction of Other Therapeutic Substance into Peripheral Vein, Percutaneous Approach (ICD-10-PCS; 2023-12-28)
DX: B02.29 Other postherpetic nervous system involvement (principal); R10.9 Unspecified abdominal pain
CPT/HCPCS: 36415; 80053; 85025; 96374; 96375; 99284-25; J0131; J1100

== ENCOUNTER 2024-12-08 12:54 | Emergency (ER) | payer OTHER ==
[2024-12-08 13:16] VITALS: BP 138/63; PULSE 66; RESP 18; TEMP 97.6; BMI 30.2
[2024-12-08] MEDS ORDERED: ACETAMINOPHEN INJECTION 100 ML ONE (13:41)
[2024-12-08] MEDS: ACETAMINOPHEN 1000 MG/100 ML BAG IVPB ONE (13:53)
[2024-12-08 13:55] LABS: ABSOLUTE IMMATURE GRANULOCYTES 0.01 x10^3/uL (0.0-0.031); BASOPHILS # 0.04 x10^3/uL (0.01-0.08); EOSINOPHIL % 2.2 % (0.7-5.8); EOSINOPHILS # 0.25 x10^3/uL (0.04-0.36); HEMATOCRIT 35.7 % (34.1-44.9); HEMOGLOBIN 11.8 g/dL (11.2-15.7); MCHC 33.1 g/dl (32.2-35.5); MEAN CELL VOLUME 87.1 fl (79.4-94.8); MEAN PLT VOLUME 9.5 fl (9.4-12.3); MONOCYTE % 7.2 % (4.7-12.5); PLATELET COUNT 266 x10^3/uL (182-369); RDW 12.4 % (12.4-16.6)
[2024-12-08 15:11] LABS: ALBUMIN 4.2 g/dl (3.4-5.0); ALK PHOS 134 U/L (45-117); ANION GAP 11 mmol/L (4-13); BILIRUBIN,TOTAL 0.3 mg/dl (0.2-1); CALCIUM 9.6 mg/dl (8.5-10.1); CHLORIDE 94 mmol/L (98-107); CO2 22 mmol/L (21-32); CREATININE 1.3 mg/dl (0.6-1.3); GLUCOSE,RANDOM 206 mg/dl (74-106); SGOT/AST 12 U/L (15-37); SGPT/ALT 11 U/L (7-52); SODIUM 127 mmol/L (136-145); TOT PROT 6.7 g/dl (6.4-8.2)
[2024-12-08 16:03] LABS: CALCIUM 9.4 mg/dl (8.5-10.1); CREATININE 1.3 mg/dl (0.6-1.3); POTASSIUM 5.6 mmol/L (3.5-5.1)
[2024-12-08 16:59] LABS: HCV DIAGNOSTIC IN-HOUSE W/RFLX NON-REACTIVE (NONREACTIVE)
[2024-12-08 17:01] LABS: HIV INTERPRETATION NEGATIVE (NEGATIVE)
== END 2024-12-08 16:41 | disposition home or self-care (01) ==
LOC: FER 12:54
PROC: 3E033NZ Introduction of Analgesics, Hypnotics, Sedatives into Peripheral Vein, Percutaneous Approach (ICD-10-PCS; principal; 2024-12-08)
DX: M10.9 Gout, unspecified (principal); M25.532 Pain in left wrist; M79.89 Other specified soft tissue disorders
CPT/HCPCS: 36415; 73030-TC-LT-FY; 73070-TC-LT-FY; 73090-TC-LT-FY; 73110-TC-LT-FY; 73130-TC-LT-FY; 80048; 80053; 85025; 86803; 87389; 96374; 99284-25